=== PATIENT | male | born 1945 | race Hispanic/Latino ===

== ENCOUNTER 2022-06-12 19:33 | Emergency (ER) | payer MEDICARE, SELFPAY ==
[2022-06-12] VITALS (7 sets, daily range): BP systolic 122–140; BP diastolic 60–63; PULSE 77–93; RESP 16; TEMP 36.6; O2SAT 95–100; BMI 18.1
--- NOTE | 2022-06-12 20:06 | DI.RAD.S_ITS ---
PROCEDURE: XR ABDOMEN 1V INDICATIONS: abd pain / no bm since 06/09 TECHNIQUE: One view of the abdomen acquired. COMPARISON: Outside Film, CT, CT ABDOMEN PELVIS WITH CONTRAST, 05/22/2022, 10:48. FINDINGS: Surgical changes and devices: There is a gastrostomy tube projecting over the left mid abdomen. Bowel: There is a moderate amount of stool throughout the colon consistent with constipation. No dilated bowel loops to suggest obstruction. Soft tissues: No suspicious abdominal calcifications. There is a small right pleural effusion. Bones: There are moderate degenerative changes within the right hip. No suspicious bony lesions. IMPRESSION: 1. Moderate colonic stool distention compatible with constipation. No evidence of bowel obstruction. 2. Small right pleural effusion. Dictated by: Ayden Jimenez M.D. on 06/12/2022 at 20:38 Approved by: Ayden Jimenez M.D. on 06/12/2022 at 20:41
--- NOTE | 2022-06-12 22:34 | ED.GENADULT ---
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 He is being followed at the [facility] for continued Oncology evaluation and treatment of the mass. Gastric feeding tube was placed at the [facility] on the . Patient has not had a bowel movement since then. Had increasing pain in his daughters added additional water with still no bowel movement. He is not describing fevers or chills. Related Data Home Medications Medication Instructions Recorded Confirmed amoxicillin 500 mg tablet 500 mg PO TID 06/01/22 06/01/22 chlorhexidine gluconate 0.12 % 15 ml buccal DAILY 06/01/22 06/01/22 mouthwash ipratropium 0.5 mg-albuterol 3 mg 3 ml inhalation Q6H 06/01/22 06/01/22 (2.5 mg base)/3 mL nebulization soln nebulizer and compressor #1 ea 06/01/22 06/01/22 (InnoSpire Essence device) Previous Rx's Medication Instructions Recorded Magic Mouth wash 10 ml PO Q4-6H PRN sever throat 06/03/22 pain #120 mL polyethylene glycol 3350 17 17 g PO DAILY #238 grams 06/12/22 gram/dose oral powder (Miralax) Allergies Allergy/AdvReac Type Severity Reaction Status Date / Time No Known Drug Allergies Allergy Unverified 06/01/22 09:31 Review of Systems Review of Systems Narrative: Pertinent positive and negative findings as per HPI Patient History Medical History Aspiration into airway Dysphagia History of traumatic injury of head Tongue neoplasm Weight loss Social History details: (Maria De Jesus), daughter Chayito, 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 Abdomen is soft there is some minor tenderness in the right lower quadrant without rebound or guarding Skin: No obvious rashes, warm and dry Neurologic: Grossly intact no obvious asymmetries or abnormalities Psych: appropriate insight and affect, cooperative Course Orders Ordered: ED Orders 06/12/22 20:06 XR abdomen 1V Stat Discontinued Medications Lactulose (Lactulose 20 Gm/30 Ml Solution) 40 gm PO NOW ONE Stop: 06/12/22 21:17 Vital Signs Vital signs: Vital Signs - 8 hr 06/12/22 19:45 Temperature 97.8 F Pulse Rate 93 H Respiratory Rate 16 Blood Pressure 132/63 Pulse Oximetry 100 Oxygen Delivery Method Room Air Medical Decision Making [facility] Narrative Medical decision making narrative: CC: Abdominal pain, this is an acute problem uncertain prognosis Complicating co-morbidities: Recent cancer diagnosis and recent G-tube placement, significant weight loss Data collected from: patient, daughter Social determinants of health that may influence the patients condition: Recent cancer diagnosis, travel to [place] for care Medical records reviewed: Notes from primary care provider on June 01 reviewed Differential considered: Constipation, bowel perforation, abdominal/intra-abdominal infection Exam documented above, pertinent findings include: Mild right abdominal pain without evidence of acute surgical abdomen Lab Test studies were not indicated with today's visit Imaging studies independently reviewed: Abdominal x-ray shows a moderate amount of stool throughout the colon with a large focus in the cecum without evidence of obstruction or perforation. Discussion: Findings were discussed with patient and his daughter. Recommended 40 mg of lactulose through his tube to start the process of getting stool moving. From there I have recommended daily MiraLax with at least 8-12 oz of water to deal with his constipation. Reportedly constipation was an issue even before feeding tube was placed and oral intake limited. At this point again, there is no evidence of acute surgical abdomen or infection he is safe for discharge home Discharge Plan Departure Patient Disposition: Home Clinical Impression: Abdominal pain Qualifiers: Abdominal location: generalized Qualified Code(s): R10.84 - Generalized abdominal pain Constipation Qualifiers: Constipation type: unspecified constipation type Qualified Code(s): K59.00 - Constipation, unspecified Instructions: DI for Constipation Activity Restrictions/Additional Instructions: Thank you for coming in today I am glad that there is not evidence of bowel perforation or any need for acute surgical intervention tonight. The x-ray does suggest significant constipation as a source of your pain. You have been given 40 cc of lactulose to help with constipation this evening. I would recommend continued treatment and prevention with daily dose of 17 g (1 capful) of MiraLax along with 8-12 oz of water daily. [email or web address] If you find that you are getting worse or develop any new symptoms, please feel free to return to the emergency department for further evaluation. Prescriptions: New polyethylene glycol 3350 [Miralax] 17 gram/dose powder 17 g PO DAILY Qty: 238 0RF No Action Magic Mouth wash 10 ml PO Q4-6H MDD 60 ml PRN (Reason: sever throat pain) Qty: 120 2RF Rx Instructions: diphenhyramine elixor 12.5 mg/5ml, 1 part maalox and 1 part 2% viscous lidocane. swish, gargle, spit or swallow 10 ml every 4-6 hours as needed. (DME) nebulizer and compressor [InnoSpire Essence] Device See Rx Instructions .ROUTE .MEDSUPPLY Qty: 1 Patient Comments: USE FOUR TIMES DAILY Rx Instructions: As directed ipratropium-albuterol 0.5 mg-3 mg(2.5 mg base)/3 mL solution for nebulization 3 ml inhalation Q6H Patient Comments: INHALE CONTENTS OF 1 VIAL BY MOUTH AND INTO THE LUNGS EVERY 6 HOURS amoxicillin 500 mg tablet 500 mg PO TID chlorhexidine gluconate 0.12 % mouthwash 15 ml buccal DAILY Referrals: Shady Eric MD [Primary Care Provider] - Stand Alone Forms: Patient Portal/API
[2022-06-12] MEDS: LACTULOSE 20 GM/30 ML SOLUTION 40 GM PO (22:37)
== END 2022-06-12 23:04 | disposition home or self-care (01) ==
PROVIDERS: Emergency Provider Emergency Medicine; PCP Internal Medicine
DX: R10.84 Generalized abdominal pain (principal); K59.00 Constipation, unspecified
CPT/HCPCS: 74018; 99283

== ENCOUNTER 2022-06-13 15:35 | Emergency (ER) | payer MEDICARE, SELFPAY ==
[2022-06-13] VITALS (20 sets, daily range): BP systolic 139–190; BP diastolic 67–120; PULSE 70–96; RESP 20; TEMP 37; O2SAT 95–100; BMI 18.1
--- NOTE | 2022-06-13 15:55 | ED_ITS ---
HPI - General Adult <Suraj Pryor DO - Last Filed: 06/14/22 07:23> General Chief complaint: Abdominal Pain Stated complaint: Unable to urinate, Abd pain, has feeding tube Time Seen by Provider: 06/13/22 15:49 Source: patient and family Mode of arrival: Wheelchair Limitations: no limitations History of Present Illness HPI narrative: 76-year-old male. Has had a oral oncologic process. Had a G-tube placed recently. Takes nothing by mouth. Was seen here last night for constipation. Was given lactulose. Also given a prescription for MiraLax. Has not had a bowel movement with the lactulose. They have not done the MiraLax because they were told to hold on this until the lactulose had caused him to have a bowel movement. He is generalized abdominal tenderness. His family thinks he is dehydrated. He is not had any vomiting. The complaint about unable to urinate his because of a concern for dehydration not because of urinary retention. Related Data Home Medications Medication Instructions Recorded Confirmed amoxicillin 500 mg tablet 500 mg PO TID 06/01/22 06/01/22 chlorhexidine gluconate 0.12 % 15 ml buccal DAILY 06/01/22 06/01/22 mouthwash ipratropium 0.5 mg-albuterol 3 mg 3 ml inhalation Q6H 06/01/22 06/01/22 (2.5 mg base)/3 mL nebulization soln nebulizer and compressor #1 ea 06/01/22 06/01/22 (InnoSpire Essence device) Previous Rx's Medication Instructions Recorded Magic Mouth wash 10 ml PO Q4-6H PRN sever throat 06/03/22 pain #120 mL polyethylene glycol 3350 17 17 g PO DAILY #238 grams 06/12/22 gram/dose oral powder (Miralax) lactulose 10 gram oral packet 20 g PO BID PRN constipation #15 ea 06/13/22 Allergies Allergy/AdvReac Type Severity Reaction Status Date / Time No Known Drug Allergies Allergy Verified 06/13/22 16:01 Review of Systems <Suraj Pryor DO - Last Filed: 06/14/22 07:23> Constitutional Constitutional: Reports system reviewed and no additional complaints, except as documented Cardiovascular Cardiovascular: Reports system reviewed and no additional complaints, except as documented Respiratory Respiratory: Reports system reviewed and no additional complaints, except as documented Gastrointestinal Gastrointestinal: Reports system reviewed and no additional complaints, except as documented Genitourinary Genitourinary: Reports system reviewed and no additional complaints, except as documented Integumentary/Breasts Skin/Breast: Reports system reviewed and no additional complaints, except as documented Neurologic Neurologic: Reports system reviewed and no additional complaints, except as documented Hematologic/Lymphatic On Anticoagulants: No Patient History <Suraj Pryor DO - Last Filed: 06/14/22 07:23> Medical History Aspiration into airway Dysphagia History of traumatic injury of head Tongue neoplasm Weight loss Social History details: (Maria De Jesus), daughter Chayito, 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 Smoking Status: Former smoker Smoking Status: Former smoker Substance Use Type: does not use Exam <DO Randy Galvez Last Filed: 06/14/22 07:23> Initial Vital Signs Initial Vital Signs: Vital Signs Temperature 98.6 F 06/13/22 15:40 Pulse Rate 93 H 06/13/22 15:40 Respiratory Rate 20 06/13/22 15:40 Blood Pressure 141/67 H 06/13/22 15:40 Pulse Oximetry 99 06/13/22 15:40 Oxygen Delivery Method Room Air 06/13/22 15:40 Const General: comfortable HENMT Head: normal to inspection GI Inspection: non-distended Palpation: firm and tender Neuro General: patient alert and patient awake Extrem General: normal to inspection and capillary refill normal <Rae Apple MD - Last Filed: 06/13/22 21:31> Initial Vital Signs Initial Vital Signs: Vital Signs Temperature 98.6 F 06/13/22 15:40 Pulse Rate 93 H 06/13/22 15:40 Respiratory Rate 20 06/13/22 15:40 Blood Pressure 141/67 H 06/13/22 15:40 Pulse Oximetry 99 06/13/22 15:40 Oxygen Delivery Method Room Air 06/13/22 15:40 Course <Suraj Pryor DO - Last Filed: 06/14/22 07:23> Orders Ordered: Discontinued Medications Sodium Chloride (Normal Saline 0.9%) 1,000 mls @ 1,000 mls/hr IV BOLUS ONE Stop: 06/13/22 16:54 Last Infusion: 06/13/22 17:32 Dose: 0 mls/hr Documented By: Infusion: 06/13/22 16:51 Dose: 1,000 mls/hr Documented By: Infusion: 06/13/22 16:42 Dose: 0 mls/hr Documented By: Admin: 06/13/22 16:19 Dose: 1,000 mls/hr Documented By: JAKE Ketorolac Tromethamine (Ketorolac 30 Mg/Ml Vial) 30 mg IV NOW ONE Stop: 06/13/22 15:57 Last Admin: 06/13/22 16:19 Dose: 30 mg Documented By: BS Lactulose (Lactulose 20 Gm/30 Ml Solution) 20 gm TUBE NOW ONE Stop: 06/13/22 20:20 Last Admin: 06/13/22 20:28 Dose: 20 gm Documented By: SB Lidocaine HCl (Lidocaine 2% (Glydo) 6 Ml Gel) 6 ml TOP NOW ONE Stop: 06/13/22 17:38 Last Admin: 06/13/22 18:00 Dose: 6 ml Documented By: SPF Sodium Biphosphate/Sodium Phosphate (Fleets Enema) 1 each ND NOW ONE Stop: 06/13/22 20:20 Last Admin: 06/13/22 20:24 Dose: 1 each Documented By: THIEN Vital Signs Vital signs: Vital Signs - 8 hr 06/13/22 15:40 06/13/22 15:53 06/13/22 16:00 Temperature 98.6 F Pulse Rate 93 H 91 H Respiratory Rate 20 Blood Pressure 141/67 H 156/70 H Pulse Oximetry 99 99 Oxygen Delivery Method Room Air 06/13/22 16:00 06/13/22 16:32 06/13/22 16:40 Temperature Pulse Rate 96 H 80 81 Respiratory Rate Blood Pressure Pulse Oximetry 97 100 100 Oxygen Delivery Method Room Air 06/13/22 16:40 06/13/22 16:53 06/13/22 16:53 Temperature Pulse Rate 89 Respiratory Rate Blood Pressure 181/84 H 171/77 H Pulse Oximetry 98 Oxygen Delivery Method Room Air 06/13/22 17:00 06/13/22 17:00 06/13/22 17:20 Temperature Pulse Rate 84 Respiratory Rate Blood Pressure 176/79 H 175/120 H Pulse Oximetry 99 Oxygen Delivery Method 06/13/22 17:20 06/13/22 17:30 06/13/22 17:30 Temperature Pulse Rate 91 H 89 Respiratory Rate Blood Pressure 190/86 H Pulse Oximetry 99 100 Oxygen Delivery Method Room Air 06/13/22 18:13 06/13/22 18:13 06/13/22 18:28 Temperature Pulse Rate 80 83 Respiratory Rate Blood Pressure 175/82 H Pulse Oximetry 95 100 Oxygen Delivery Method Room Air 06/13/22 18:45 06/13/22 18:53 06/13/22 19:00 Temperature Pulse Rate 73 77 Respiratory Rate Blood Pressure 163/92 H Pulse Oximetry 99 99 Oxygen Delivery Method 06/13/22 19:30 Temperature Pulse Rate 79 Respiratory Rate Blood Pressure Pulse Oximetry 100 Oxygen Delivery Method Room Air <Rae Apple MD - Last Filed: 06/13/22 21:31> Orders Ordered: Discontinued Medications Sodium Chloride (Normal Saline 0.9%) 1,000 mls @ 1,000 mls/hr IV BOLUS ONE Stop: 06/13/22 16:54 Last Infusion: 06/13/22 17:32 Dose: 0 mls/hr Documented By: Infusion: 06/13/22 16:51 Dose: 1,000 mls/hr Documented By: Infusion: 06/13/22 16:42 Dose: 0 mls/hr Documented By: Admin: 06/13/22 16:19 Dose: 1,000 mls/hr Documented By: JAKE Ketorolac Tromethamine (Ketorolac 30 Mg/Ml Vial) 30 mg IV NOW ONE Stop: 06/13/22 15:57 Last Admin: 06/13/22 16:19 Dose: 30 mg Documented By: JAKE Lactulose (Lactulose 20 Gm/30 Ml Solution) 20 gm TUBE NOW ONE Stop: 06/13/22 20:20 Last Admin: 06/13/22 20:28 Dose: 20 gm Documented By: SB Lidocaine HCl (Lidocaine 2% (Glydo) 6 Ml Gel) 6 ml TOP NOW ONE Stop: 06/13/22 17:38 Last Admin: 06/13/22 18:00 Dose: 6 ml Documented By: SPF Sodium Biphosphate/Sodium Phosphate (Fleets Enema) 1 each ND NOW ONE Stop: 06/13/22 20:20 Last Admin: 06/13/22 20:24 Dose: 1 each Documented By: SB Vital Signs Vital signs: Vital Signs - 8 hr 06/13/22 15:40 06/13/22 15:53 06/13/22 16:00 Temperature 98.6 F Pulse Rate 93 H 91 H Respiratory Rate 20 Blood Pressure 141/67 H 156/70 H Pulse Oximetry 99 99 Oxygen Delivery Method Room Air 06/13/22 16:00 06/13/22 16:32 06/13/22 16:40 Temperature Pulse Rate 96 H 80 81 Respiratory Rate Blood Pressure Pulse Oximetry 97 100 100 Oxygen Delivery Method Room Air 06/13/22 16:40 06/13/22 16:53 06/13/22 16:53 Temperature Pulse Rate 89 Respiratory Rate Blood Pressure 181/84 H 171/77 H Pulse Oximetry 98 Oxygen Delivery Method Room Air 06/13/22 17:00 06/13/22 17:00 06/13/22 17:20 Temperature Pulse Rate 84 Respiratory Rate Blood Pressure 176/79 H 175/120 H Pulse Oximetry 99 Oxygen Delivery Method 06/13/22 17:20 06/13/22 17:30 06/13/22 17:30 Temperature Pulse Rate 91 H 89 Respiratory Rate Blood Pressure 190/86 H Pulse Oximetry 99 100 Oxygen Delivery Method Room Air 06/13/22 18:13 06/13/22 18:13 06/13/22 18:28 Temperature Pulse Rate 80 83 Respiratory Rate Blood Pressure 175/82 H Pulse Oximetry 95 100 Oxygen Delivery Method Room Air 06/13/22 18:45 06/13/22 18:53 06/13/22 19:00 Temperature Pulse Rate 73 77 Respiratory Rate Blood Pressure 163/92 H Pulse Oximetry 99 99 Oxygen Delivery Method 06/13/22 19:30 Temperature Pulse Rate 79 Respiratory Rate Blood Pressure Pulse Oximetry 100 Oxygen Delivery Method Room Air Medical Decision Making <Suraj Pryor DO - Last Filed: 06/14/22 07:23> Medical Records Medical records reviewed: Yes I reviewed the patient's medical records. Lab Data Lab results reviewed: Yes I reviewed the patient's lab results. 06/13/22 16:05 06/13/22 16:05 Labs: Lab Results 06/13/22 06/13/22 Range/Units 16:05 16:05 WBC 8.0 (4.5-11.0) X10^3/uL RBC 3.92 L (4.5-5.9) X10^6/uL Hgb 12.0 L (13.5-17.5) g/dL Hct 35.3 L (41-53) % MCV 90.1 (80-100) fL MCH 30.6 (26-34) PG MCHC 33.9 (30-36) % RDW 13.7 (11.6-14.8) % Plt Count 309 (150-400) X10^3/uL Neut % (Auto) 77.4 H (50-75) % Lymph % (Auto) 11.9 L (25-40) % [place] % (Auto) 7.5 (3-14) % Eos % (Auto) 2.7 (2-4) % Baso % (Auto) 0.5 (0-2) % Neut # (Auto) 6200 (9188-3905) /uL Lymph # (Auto) 1000 L (8842-4044) /uL [place] # (Auto) 600 (0-900) /uL Eos # (Auto) 200 (0-450) /uL Baso # (Auto) 0 (0-100) /uL Sodium 136 L (137-145) mmol/L Potassium 4.1 (3.4-5.1) mmol/L Chloride 98 (98-107) mmol/L Carbon Dioxide 30 (22-32) mmol/L BUN 17 (9-20) mg/dL Creatinine 0.52 L (0.66-1.25) mg/dL Estimated GFR > 60 (>60) mL/min BUN/Creatinine Ratio 32.7 H (6-22) Glucose 88 (80-110) mg/dL Calcium 9.3 (8.4-10.2) mg/dL Urine Dip Bedside Urine Glucose Negative Bedside Urine Bilirubin - Negative Bedside Urine Ketone +/- 5 Urine Specific [place] 1.010 Bedside Urine Occult Blood - Negative Bedside Urine pH 7.0 Bedside Urine Protein - Negative Bedside Urine Urobilinogen +/- 1mg Bedside Urine Nitrite - Negative Bedside Urine Leukocytes - Negative Esterase Point of care testing: Urine Dip Bedside Urine Glucose Negative Bedside Urine Bilirubin - Negative Bedside Urine Ketone +/- 5 Urine Specific [place] 1.010 Bedside Urine Occult Blood - Negative Bedside Urine pH 7.0 Bedside Urine Protein - Negative Bedside Urine Urobilinogen +/- 1mg Bedside Urine Nitrite - Negative Bedside Urine Leukocytes - Negative Esterase Imaging Data CT scan - abdomen/pelvis: Radiologist's Impression: PROCEDURE:? CT ABDOMEN PELVIS W CON ? INDICATIONS:? has G tube, constipation vs obstruction ? TECHNIQUE:? After the administration of oral and IV contrast, axial sections were acquired from the lung bases to the pubic symphysis.? Coronal and sagittal reformats were performed.? For radiation dose reduction, the following was used:? automated exposure control, adjustment of mA and/or kV according to patient size. ? COMPARISON:? Outside Film, CT, CT CHEST WITH CONTRAST, 05/22/2022, 10:48.? Outside Film, CT, CT ABDOMEN PELVIS WITH CONTRAST, 05/22/2022, 10:48. ? FINDINGS:? Image quality:? Excellent.? ? Lung bases:? Pleural thickening in right hemithorax.? There is a loculated right pleural effusion.? Right basilar consolidation or atelectasis.? ? Heart:? Normal size.? Severe coronary artery calcification. ? ? ABDOMEN: Liver:? Unremarkable.? ? Gallbladder:? Unremarkable.? ? Biliary ducts:? Unremarkable.? ? Pancreas:? Unremarkable.? ? Spleen:? Unremarkable.? ? Adrenal Glands:? Unremarkable.? ? Kidneys and Ureters:? Unremarkable.? ? ? Stomach and Bowel:? There is a percutaneous gastrostomy.? Stomach, small bowel loops, and colon are unremarkable.? A large amount of stool in colon. Peritoneum:? No abnormal intraperitoneal fluid.? No free air.? ? Ventral Wall: ? No hernia.? Abdominal Nodes:? No retroperitoneal or mesenteric adenopathy by size criteria.? Vessels:? Aorta and inferior vena cava are normal in size.? Moderate to severe atherosclerotic calcifications. ? PELVIS: Pelvic Organs:? Unremarkable.? ? Bladder:? Unremarkable.? ? Pelvic Nodes: No enlarged lymph nodes.? Miscellaneous:? Small fat containing left hernia is seen.? There is a penile calcification.? ? ? Bones:? Degenerative changes are noted in thoracic and lumbar spine.? IMPRESSION:? ? 1.? No acute abnormalities in abdomen or pelvis.? 2.? A large amount of stool in colon consistent with constipation.? 3.? Percutaneous gastrostomy.? 4.? Right pleural thickening.? There is a loculated right basilar pleural effusion.? Differential diagnoses include empyema and malignant effusion. 5. Right basilar consolidation or atelectasis.?? MDM Narrative Medical decision making narrative: Patient did quite a bit of generalized abdominal discomfort. Has not been vomiting. Is afebrile. Had a firm abdomen. CT scan does show quite a bit of stool in his colon which is consistent with constipation and how he presents. Patient also did have a postvoid residual of greater than 600 cc in hurts urine. I had a long discussion with him and his family at bedside regarding this. We did discuss how this potentially could be aiding to his issues with constipati on. We discussed placing a Macario catheter. After this discussion they were in agreement with placing the catheter and I suspect that this is going to help his discomfort quite a bit. We also had a discussion about leaving the catheter in versus removing it and the risks and benefits of this. They stated that they were going to think about whether not they wanted to leave the catheter in place. There is no signs of any bowel obstruction on the CT scan. I suspect that relieving his urinary retention and continued laxatives will benefit the patient. Care turned over to Dr. Apple to continue to follow until disposition. <Rae Apple MD - Last Filed: 06/13/22 21:31> Lab Data Labs: Lab Results 06/13/22 06/13/22 Range/Units 16:05 16:05 WBC 8.0 (4.5-11.0) X10^3/uL RBC 3.92 L (4.5-5.9) X10^6/uL Hgb 12.0 L (13.5-17.5) g/dL Hct 35.3 L (41-53) % MCV 90.1 (80-100) fL MCH 30.6 (26-34) PG MCHC 33.9 (30-36) % RDW 13.7 (11.6-14.8) % Plt Count 309 (150-400) X10^3/uL Neut % (Auto) 77.4 H (50-75) % Lymph % (Auto) 11.9 L (25-40) % [place] % (Auto) 7.5 (3-14) % Eos % (Auto) 2.7 (2-4) % Baso % (Auto) 0.5 (0-2) % Neut # (Auto) 6200 (8455-6692) /uL Lymph # (Auto) 1000 L (3066-9455) /uL [place] # (Auto) 600 (0-900) /uL Eos # (Auto) 200 (0-450) /uL Baso # (Auto) 0 (0-100) /uL Sodium 136 L (137-145) mmol/L Potassium 4.1 (3.4-5.1) mmol/L Chloride 98 (98-107) mmol/L Carbon Dioxide 30 (22-32) mmol/L BUN 17 (9-20) mg/dL Creatinine 0.52 L (0.66-1.25) mg/dL Estimated GFR > 60 (>60) mL/min BUN/Creatinine Ratio 32.7 H (6-22) Glucose 88 (80-110) mg/dL Calcium 9.3 (8.4-10.2) mg/dL Urine Dip Bedside Urine Glucose Negative Bedside Urine Bilirubin - Negative Bedside Urine Ketone +/- 5 Urine Specific [place] 1.010 Bedside Urine Occult Blood - Negative Bedside Urine pH 7.0 Bedside Urine Protein - Negative Bedside Urine Urobilinogen +/- 1mg Bedside Urine Nitrite - Negative Bedside Urine Leukocytes - Negative Esterase Point of care testing: Urine Dip Bedside Urine Glucose Negative Bedside Urine Bilirubin - Negative Bedside Urine Ketone +/- 5 Urine Specific [place] 1.010 Bedside Urine Occult Blood - Negative Bedside Urine pH 7.0 Bedside Urine Protein - Negative Bedside Urine Urobilinogen +/- 1mg Bedside Urine Nitrite - Negative Bedside Urine Leukocytes - Negative Esterase MDM Narrative Medical decision making narrative: Patient did quite a bit of generalized abdominal discomfort. Has not been vomiting. Is afebrile. Had a firm abdomen. CT scan does show quite a bit of stool in his colon which is consistent with constipation and how he presents. Patient also did have a postvoid residual of greater than 600 cc in hurts urine. I had a long discussion with him and his family at bedside regarding this. We did discuss how this potentially could be aiding to his issues with constipation. We discussed placing a Macario catheter. After this discussion they were in agreement with placing the catheter and I suspect that this is going to help his discomfort quite a bit. We also had a discussion about leaving the catheter in versus removing it and the risks and benefits of this. They stated that they were going to think about whether not they wanted to leave the catheter in place. There is no signs of any bowel obstruction on the CT scan. I suspect that relieving his urinary retention and continued laxatives will benefit the patient. Care turned over to Dr. Apple to continue to follow until disposition. 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 She wants to do everything possible to help her father and is quite cautious and very specific in following physician direction Medical records reviewed: Differential considered: Bowel obstruction, abdominal mass, bowel perforation secondary to obstipation, stercoral colitis Exam documented above, pertinent findings include: Continued abdominal tenderness Lab Test results independently reviewed as above. CBC remains essentially unchanged Chemistries are reassuring Imaging studies independently reviewed: CT scan as above. Consistent with severe constipation, no bowel perforation and distended bladder. Of note is the right pleural thickening with a loculated right base pleural effusion. Make sure that the daughter is aware of this and follows up with the Oncology doctors Consultations: Treatments: Manual bowel disimpaction. He had a moderate amount of firm but not dramatically hard stool. Following manual bowel disimpaction he was given an enema. Today he is having this that he does need to have a bowel movement. He was not sensing this yesterday Macario catheter was placed and drained 700 cc of urine. Re-evaluations: Minimal response initially to the enema but at time of discharge clearly is having increasing bowel tones and it sounds like our interventions are more effective. Discussion: 76-year-old gentleman with significant weight loss recent G-tube placement still trying to stick to 250 cc volumes of feedings until his stomach accommodates. Starters doing for feedings throughout the day. She had not been giving additional liquids. We talked about adding a 5th feeding that includes a dose of MiraLax with 250 cc of water daily. He had not had significant results with the 40 mg of G-tube lactulose delivered yesterday. We will give him additional 20 mg at this time. I think with the manual stimulation with a disimpaction the enema may be much more effective and hopefully will begin some: Contractions that help with complete bowel evacuation. We also discussed Macario catheter and whether it should stay or go. He is never had difficulties with BPH or urinary retention previously. It is entirely conceivable that this episode of urinary retention is due to his severe constipation which we have already alleviated. With shared decision making the patient clearly does not want to be discharged home with Macario catheter. He understands that if he is unable to void he will need to come back and have it replaced and is okay with that option. Discharge Plan Departure Patient Disposition: Home Clinical Impression: Acute urinary retention, Abdominal pain, Constipation Instructions: DI for Abdominal Pain-Adult, DI for Constipation, DI for Urinary Retention in Men Activity Restrictions/Additional Instructions: Thank you for coming back today With blood work done today there were no dramatic abnormalities appreciated. The CT scan of your abdomen showed continued significant amounts of constipation but no bowel obstruction or perforation. There was not incidental finding with a small amount of fluid in the right base of his lung with thickness along the base of his lung. Not having comparison studies I do not know if this is new or old. It is worth making sure his oncology doctors are aware of this finding and to that end I have given you a printed report of the CT scan to share with his oncology doctors when you follow-up. In the emergency room today we did a manual disimpaction. Had quite a bit of stool but it was not particularly hard. After that we did an enema. I think that will help with some of the left-sided constipation however we still need to work on the right-sided constipation and then preventing further constipation. He was given another dose of 20 mg of lactulose through his feeding tube to help with the right sided constipation. We Also found that he had a very distended bladder. Almost 700 cc of urine came out after the Macario catheter was placed. Sometimes very distended bladder is can contribute to constipation and sometimes constipation can cause very distended bladder. Because he has not had issues with his prostate or with urinary retention before we will go ahead and take the Macario catheter out before he goes home. Please do understand that he is unable to pee he will need to return and have a catheter replaced. Regarding further treatment and recommendations for feeding water and prevention of constipation. Please continue with the 250 cc feedings 4 times a day as previously recommended I would also recommend an additional bolus of water once a day. When I would like you to do is to use the MiraLax (a dose is 1 full cap full of the powder. This does not need to be precise. A little more, a little less and all is good. I would suggest that you mix the cap full of the powder with an additional 250 cc of water and put that in his feeding tube once a day. The worst side effect of this is that he will have runny stool. If that happens, discontinue the MiraLax but I would recommend continuing an additional dose of just 250 cc of water in between feedings. Please make sure you review all of this with the transmission technician and physicians that will be follow-up regarding his gastric tube. Prescriptions: New lactulose 10 gram packet 20 g PO BID PRN (Reason: constipation) Qty: 15 0RF No Action Magic Mouth wash 10 ml PO Q4-6H MDD 60 ml PRN (Reason: sever throat pain) Qty: 120 2RF Rx Instructions: diphenhyramine elixor 12.5 mg/5ml, 1 part maalox and 1 part 2% viscous lidocane. swish, gargle, spit or swallow 10 ml every 4-6 hours as needed. (DME) nebulizer and compressor [InnoSpire Essence] Device See Rx Instructions .ROUTE .MEDSUPPLY Qty: 1 Patient Comments: USE FOUR TIMES DAILY Rx Instructions: As directed ipratropium-albuterol 0.5 mg-3 mg(2.5 mg base)/3 mL solution for nebulization 3 ml inhalation Q6H Patient Comments: INHALE CONTENTS OF 1 VIAL BY MOUTH AND INTO THE LUNGS EVERY 6 HOURS amoxicillin 500 mg tablet 500 mg PO TID chlorhexidine gluconate 0.12 % mouthwash 15 ml buccal DAILY polyethylene glycol 3350 [Miralax] 17 gram/dose powder 17 g PO DAILY Qty: 238 0RF Referrals: Shady Eric MD [Primary Care Provider] - Stand Alone Forms: Patient Portal/API
--- NOTE | 2022-06-13 15:56 | DI.CT.S_ITS ---
PROCEDURE: CT ABDOMEN PELVIS W CON INDICATIONS: has G tube, constipation vs obstruction TECHNIQUE: After the administration of oral and IV contrast, axial sections were acquired from the lung bases to the pubic symphysis. Coronal and sagittal reformats were performed. For radiation dose reduction, the following was used: automated exposure control, adjustment of mA and/or kV according to patient size. COMPARISON: Outside Film, CT, CT CHEST WITH CONTRAST, 05/22/2022, 10:48. Outside Film, CT, CT ABDOMEN PELVIS WITH CONTRAST, 05/22/2022, 10:48. FINDINGS: Image quality: Excellent. Lung bases: Pleural thickening in right hemithorax. There is a loculated right pleural effusion. Right basilar consolidation or atelectasis. Heart: Normal size. Severe coronary artery calcification. ABDOMEN: Liver: Unremarkable. Gallbladder: Unremarkable. Biliary ducts: Unremarkable. Pancreas: Unremarkable. Spleen: Unremarkable. Adrenal Glands: Unremarkable. Kidneys and Ureters: Unremarkable. Stomach and Bowel: There is a percutaneous gastrostomy. Stomach, small bowel loops, and colon are unremarkable. A large amount of stool in colon. Peritoneum: No abnormal intraperitoneal fluid. No free air. Ventral Wall: No hernia. Abdominal Nodes: No retroperitoneal or mesenteric adenopathy by size criteria. Vessels: Aorta and inferior vena cava are normal in size. Moderate to severe atherosclerotic calcifications. PELVIS: Pelvic Organs: Unremarkable. Bladder: Unremarkable. Pelvic Nodes: No enlarged lymph nodes. Miscellaneous: Small fat containing left hernia is seen. There is a penile calcification. Bones: Degenerative changes are noted in thoracic and lumbar spine. IMPRESSION: 1. No acute abnormalities in abdomen or pelvis. 2. A large amount of stool in colon consistent with constipation. 3. Percutaneous gastrostomy. 4. Right pleural thickening. There is a loculated right basilar pleural effusion. Differential diagnoses include empyema and malignant effusion. 5. Right basilar consolidation or atelectasis. Dictated by: Francia Gustafson M.D. on 06/13/2022 at 17:05 Approved by: Francia Gustafson M.D. on 06/13/2022 at 17:16
[2022-06-13 16:14] LABS: Add Manual Diff / Slide Review NO; Basophils Absolute Auto 0 /uL (0-100); Basophils Percent Auto 0.5 % (0-2); Eosinophils Absolute Auto 200 /uL (0-450); Eosinophils Percent Auto 2.7 % (2-4); Hematocrit 35.3 % (41-53); Lymphocytes Absolute Auto 1000 /uL (1100-4500); Lymphocytes Percent Auto 11.9 % (25-40); Mean Corpuscular HGB Conc 33.9 % (30-36); Mean Corpuscular Hemoglobin 30.6 PG (26-34); Mean Corpuscular Volume 90.1 fL (80-100); Monocytes Absolute Auto 600 /uL (0-900); Monocytes Percent Auto 7.5 % (3-14); Neutrophils Absolute Auto 6200 /uL (1500-7000); Neutrophils Percent Auto 77.4 % (50-75); Platelet Count 309 X10^3/uL (150-400); Red Blood Cell Count 3.92 X10^6/uL (4.5-5.9); Red Cell Distribution Width 13.7 % (11.6-14.8)
[2022-06-13] MEDS: KETOROLAC 30 MG/ML VIAL IV (16:19)
[2022-06-13] MEDS: SODIUM CHLORIDE 0.9% 1,000 ML 1000 ML IV (16:19)
[2022-06-13 16:33] LABS: BUN Creatinine Ratio 32.7 (6-22); Blood Urea Nitrogen 17 mg/dL (9-20); Calcium 9.3 mg/dL (8.4-10.2); Carbon Dioxide 30 mmol/L (22-32); Chloride 98 mmol/L (98-107); Estimated Glomerular Filt Rate > 60 mL/min (>60); Glucose 88 mg/dL (80-110); HEMOLYSIS < 15 (0-50); Potassium 4.1 mmol/L (3.4-5.1); Sodium 136 mmol/L (137-145)
[2022-06-13] MEDS: LIDOCAINE 2% (GLYDO) 6 ML GEL TOP (18:00)
[2022-06-13] MEDS: FLEETS ENEMA 1 EACH PR (20:24)
[2022-06-13] MEDS: LACTULOSE 20 GM/30 ML SOLUTION TUBE (20:28)
== END 2022-06-13 21:50 | disposition home or self-care (01) ==
PROVIDERS: Emergency Medicine; Emergency Provider Emergency Medicine; PCP Internal Medicine
DX: R33.8 Other retention of urine (principal); R10.9 Unspecified abdominal pain; K59.00 Constipation, unspecified; Z93.1 Gastrostomy status
CPT/HCPCS: 36415; 51798; 74177; 80048; 81003; 85025; 96361; 96374; 99284; 99285; J1885

== ENCOUNTER 2022-06-17 16:25 | Emergency (ER) | payer MEDICARE, SELFPAY ==
[2022-06-17 16:31] VITALS: BP 137/63; PULSE 78; RESP 16; TEMP 36.8; O2SAT 98; BMI 18.3
--- NOTE | 2022-06-17 18:25 | ED_ITS ---
HPI - Recheck/Abnormal Lab/Rx General Chief Complaint: Recheck/Abnormal Lab/Rx Stated Complaint: skin is overlapping on butterfly feeding tube Time Seen by Provider: 06/17/22 17:15 Source: patient and family Mode of arrival: Ambulatory Related Data Home Medications Medication Instructions Recorded Confirmed amoxicillin 500 mg tablet 500 mg PO TID 06/01/22 06/01/22 chlorhexidine gluconate 0.12 % 15 ml buccal DAILY 06/01/22 06/01/22 mouthwash ipratropium 0.5 mg-albuterol 3 mg 3 ml inhalation Q6H 06/01/22 06/01/22 (2.5 mg base)/3 mL nebulization soln nebulizer and compressor #1 ea 06/01/22 06/01/22 (InnoSpire Essence device) Previous Rx's Medication Instructions Recorded Magic Mouth wash 10 ml PO Q4-6H PRN sever throat 06/03/22 pain #120 mL polyethylene glycol 3350 17 17 g PO DAILY #238 grams 06/12/22 gram/dose oral powder (Miralax) lactulose 10 gram/15 mL (15 mL) 20 g (30 mL) PO BID PRN 06/15/22 oral solution constipation #600 mL Allergies Allergy/AdvReac Type Severity Reaction Status Date / Time No Known Drug Allergies Allergy Verified 06/17/22 16:31 Patient History Medical History Aspiration into airway Dysphagia History of traumatic injury of head Tongue neoplasm Weight loss Social History details: (Maria De Jesus), daughter Chayito, 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 Smoking Status: Former smoker Smoking Status: Former smoker Substance Use Type: does not use Exam Initial Vital Signs Initial Vital Signs: Vital Signs Temperature 98.2 F 06/17/22 16:31 Pulse Rate 78 06/17/22 16:31 Respiratory Rate 16 06/17/22 16:31 Blood Pressure 137/63 06/17/22 16:31 Pulse Oximetry 98 06/17/22 16:31 Oxygen Delivery Method Room Air 06/17/22 16:31 Course Vital Signs Vital signs: Vital Signs - 8 hr 06/17/22 16:31 Temperature 98.2 F Pulse Rate 78 Respiratory Rate 16 Blood Pressure 137/63 Pulse Oximetry 98 Oxygen Delivery Method Room Air Discharge Plan Departure Prescriptions: No Action Magic Mouth wash 10 ml PO Q4-6H MDD 60 ml PRN (Reason: sever throat pain) Qty: 120 2RF Rx Instructions: diphenhyramine elixor 12.5 mg/5ml, 1 part maalox and 1 part 2% viscous lidocane. swish, gargle, spit or swallow 10 ml every 4-6 hours as needed. lactulose 10 gram/15 mL (15 mL) solution 20 g PO BID PRN (Reason: constipation) Qty: 600 0RF (DME) nebulizer and compressor [InnoSpire Essence] Device See Rx Instructions .ROUTE .MEDSUPPLY Qty: 1 Patient Comments: USE FOUR TIMES DAILY Rx Instructions: As directed ipratropium-albuterol 0.5 mg-3 mg(2.5 mg base)/3 mL solution for nebulization 3 ml inhalation Q6H Patient Comments: INHALE CONTENTS OF 1 VIAL BY MOUTH AND INTO THE LUNGS EVERY 6 HOURS amoxicillin 500 mg tablet 500 mg PO TID chlorhexidine gluconate 0.12 % mouthwash 15 ml buccal DAILY polyethylene glycol 3350 [Miralax] 17 gram/dose powder 17 g PO DAILY Qty: 238 0RF Referrals: Shady Eric MD [Primary Care Provider] -
--- NOTE | 2022-06-17 18:30 | ED.RECABL ---
HPI - Recheck/Abnormal Lab/Rx <CHET Hart - Last Filed: 06/17/22 18:41> General Chief Complaint: Recheck/Abnormal Lab/Rx Stated Complaint: skin is overlapping on butterfly feeding tube Time Seen by Provider: 06/17/22 17:15 Source: patient and family Mode of arrival: Ambulatory History of Present Illness HPI narrative: This is a 76-year-old male who presents to the emergency room with his daughter with concern about a now G2 patient received last week, he has been eating well and received food through his G-tube and gaining weight and now has some skin that is overlapping the top of his G-tube. There is a butterfly adapter on the external of the tube, this is hubbed near the skin causing some pressure at the skin, family is concerned about possible pressure injury if this were to continue. Denies any problems with the G-tube dysfunction. Patient is getting weight as intended and due to start chemo next week. Patient is without recent fever, chills, vomiting. Related Data Home Medications Medication Instructions Recorded Confirmed amoxicillin 500 mg tablet 500 mg PO TID 06/01/22 06/01/22 chlorhexidine gluconate 0.12 % 15 ml buccal DAILY 06/01/22 06/01/22 mouthwash ipratropium 0.5 mg-albuterol 3 mg 3 ml inhalation Q6H 06/01/22 06/01/22 (2.5 mg base)/3 mL nebulization soln nebulizer and compressor #1 ea 06/01/22 06/01/22 (InnoSpire Essence device) Previous Rx's Medication Instructions Recorded Magic Mouth wash 10 ml PO Q4-6H PRN sever throat 06/03/22 pain #120 mL polyethylene glycol 3350 17 17 g PO DAILY #238 grams 06/12/22 gram/dose oral powder (Miralax) lactulose 10 gram/15 mL (15 mL) 20 g (30 mL) PO BID PRN 06/15/22 oral solution constipation #600 mL Allergies Allergy/AdvReac Type Severity Reaction Status Date / Time No Known Drug Allergies Allergy Verified 06/17/22 16:31 Review of Systems <CHET Hart - Last Filed: 06/17/22 18:41> Review of Systems ROS Unobtainable: All systems reviewed & are unremarkable except as noted in HPI and below Patient History <CHET Hart - Last Filed: 06/17/22 18:41> Medical History Aspiration into airway Dysphagia History of traumatic injury of head Tongue neoplasm Weight loss Social History details: (Maria De Jesus), daughter Chayito, 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 General: Pleasant, sitting upright, in no acute distress, well groomed, afebrile HEENT: symmetrical facial expressions, moist mucous membranes, neck is supple CV: regular rate and rhythm, warm extremities Respiratory: Mildly increased work of breathing, presume this is baseline for him, clear breath sounds throughout without tachypnea or hypoxia. GI: abdomen soft, nondistended, without CVA tenderness bilaterally. G-tube present to the left upper quadrant, no surrounding erythema, drainage tube is patent, skin is wrinkling superior to this due to increased tissue, butterfly on tube was moved 0.5 cm and no longer has pressure at the base of the butterfly. Tube remains present, without complication. MSK: moves all extremities, no weakness, normal tone, ambulatory without deficit Skin: brisk capillary refill, without rash or wound Neuro: clear speech and normal cognition, A&O x3, GCS 15, no focal motor or sensation deficits Initial Vital Signs Initial Vital Signs: Vital Signs Temperature 98.2 F 06/17/22 16:31 Pulse Rate 78 06/17/22 16:31 Respiratory Rate 16 06/17/22 16:31 Blood Pressure 137/63 06/17/22 16:31 Pulse Oximetry 98 06/17/22 16:31 Oxygen Delivery Method Room Air 06/17/22 16:31 <Parker Cuevas DO - Last Filed: 06/18/22 03:53> Initial Vital Signs Initial Vital Signs: Vital Signs Temperature 98.2 F 06/17/22 16:31 Pulse Rate 78 05/05/23 16:31 Respiratory Rate 16 06/17/22 16:31 Blood Pressure 137/63 06/17/22 16:31 Pulse Oximetry 98 06/17/22 16:31 Oxygen Delivery Method Room Air 06/17/22 16:31 Course <CHET Hart - Last Filed: 06/17/22 18:41> Vital Signs Vital signs: Vital Signs - 8 hr 06/17/22 16:31 Temperature 98.2 F Pulse Rate 78 Respiratory Rate 16 Blood Pressure 137/63 Pulse Oximetry 98 Oxygen Delivery Method Room Air <Parker Cuevas DO - Last Filed: 06/18/22 03:53> Vital Signs Vital signs: Vital Signs - 8 hr 06/17/22 16:31 Temperature 98.2 F Pulse Rate 78 Respiratory Rate 16 Blood Pressure 137/63 Pulse Oximetry 98 Oxygen Delivery Method Room Air MDM - Recheck/Abnormal Lab/Rx <CHET Hart - Last Filed: 06/17/22 18:41> MDM Narrative Medical decision making narrative: Chief Complaint: G-tube problem Independent historian: Patient and his daughter Multiple etiologies for patient's symptoms considered including, but not limited to: Pressure injury due to G2, non patent G tube, displaced G-tube, abdominal cellulitis I have independently reviewed the patient's vital signs and nursing notes as well as prior records if available. Course of care: the patient was myself and on exam, he has gained some weight since his tissue placement in has excess tissue wrinkling surrounding his G-tube. The butterfly was extended proximally 0.5 cm, normal wrinkling around the G-tube and there is no evidence of wound. G-tube functions well without any complication. He will follow-up with his primary care provider as needed and return to for chemo starting next week. Social considerations that may affect disposition: none Questions are addressed and there is agreement with the plan and for follow-up. I consulted with the ED attending physician Dr. Cuevas as needed for higher level of care considerations and they were available for discussion and recommendations regarding plan of care and diagnostic testing. Patient is appropriate for outpatient management. Discharge Plan Departure Patient Disposition: Home Clinical Impression: Problem with gastrostomy tube Activity Restrictions/Additional Instructions: *You have been diagnosed with a G-tube problem due to your skinn overlapping the G-tube which could have caused a pressure injury. We have adjusted this for you. Please keep an eye on it for signs of infection, worsening pressure, to stay hydrated, and follow-up with you dab as needed. I hope you feel better soon, thank you for coming in and I am sorry for the wait today. *What to do: *Please continue to take your regular medications as directed. [ ] New medication prescriptions sent to your pharmacy: [ ] [ ] New medication written as a paper prescription [ x] No new medications given *Please call and schedule follow up with your primary care provider in 2-3 days, at least for an update. Let them know you were seen in the Emergency Department for the above problem. We will electronically transmit a record of today's note if your PCP or specialist is in our system. *If you do not have a primary care provider please contact [phone] to establish care with one of the [facility] primary care providers. *Return to the Emergency Department for worsening symptoms, inability to keep liquids down, fever greater than 101F, chills, or other concerning symptom. Prescriptions: No Action Magic Mouth wash 10 ml PO Q4-6H MDD 60 ml PRN (Reason: sever throat pain) Qty: 120 2RF Rx Instructions: diphenhyramine elixor 12.5 mg/5ml, 1 part maalox and 1 part 2% viscous lidocane. swish, gargle, spit or swallow 10 ml every 4-6 hours as needed. lactulose 10 gram/15 mL (15 mL) solution 20 g PO BID PRN (Reason: constipation) Qty: 600 0RF (DME) nebulizer and compressor [InnoSpire Essence] Device See Rx Instructions .ROUTE .MEDSUPPLY Qty: 1 Patient Comments: USE FOUR TIMES DAILY Rx Instructions: As directed ipratropium-albuterol 0.5 mg-3 mg(2.5 mg base)/3 mL solution for nebulization 3 ml inhalation Q6H Patient Comments: INHALE CONTENTS OF 1 VIAL BY MOUTH AND INTO THE LUNGS EVERY 6 HOURS amoxicillin 500 mg tablet 500 mg PO TID chlorhexidine gluconate 0.12 % mouthwash 15 ml buccal DAILY polyethylene glycol 3350 [Miralax] 17 gram/dose powder 17 g PO DAILY Qty: 238 0RF Referrals: Kotal,Shady V, MD [Primary Care Provider] - Stand Alone Forms: Patient Portal/API <Parker Cuevas DO - Last Filed: 06/18/22 03:53> Cosign ED Attending Luis Carlos Attestation: I was immediately available in the department for consultation. Documentation has been reviewed. I agree with assessment and plan.
== END 2022-06-17 18:40 | disposition home or self-care (01) ==
PROVIDERS: Emergency Provider Nurse Practitioner Critical Care Medicine; PCP Internal Medicine
DX: K94.20 Gastrostomy complication, unspecified (principal)
CPT/HCPCS: 99281

== ENCOUNTER 2022-11-11 03:54 | Inpatient (IN) | payer MEDICARE, SELFPAY ==
[2022-11-11] VITALS (29 sets, daily range): BP systolic 105–163; BP diastolic 46–79; PULSE 76–141; RESP 18–47; TEMP 36.7–37.6; O2SAT 89–99; BMI 19.6; BMI 19.4
--- NOTE | 2022-11-11 04:11 | DI.RAD.S_ITS ---
PROCEDURE: XR CHEST 1V INDICATIONS: sepsis TECHNIQUE: One view of the chest was acquired. COMPARISON: [facility], CR, XR CHEST 1 VIEW, 08/25/2022, 13:35. [facility], CT, CT CHEST WITH CONTRAST, 08/30/2022, 15:04. FINDINGS: Surgical changes and devices: There is a Port-A-Cath on the left with the tip in the area of SVC. Lungs and pleura: Lungs are hyperexpanded consistent with emphysema. There is right lower lung zone airspace infiltrate consistent with pneumonia. Moderate right pleural effusion. No pneumothorax. Mediastinum: Mediastinal contours appear normal. Heart size is normal. Bones and chest wall: No suspicious bony lesions. Overlying soft tissues appear unremarkable. IMPRESSION: 1. Infiltrate in the right lower lung zone consistent with pneumonia. 2. Moderate right pleural effusion. No significant discrepancy with the operations supervisor 2nd shift radiology preliminary report. Dictated by: Francia Gustafson M.D. on 11/11/2022 at 8:49 Approved by: Francia Gustafson M.D. on 11/11/2022 at 8:50
--- NOTE | 2022-11-11 04:13 | ED.GENADULT ---
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 He is not dizzy nor weak or lightheaded. He denies fever or chills. He is had no runny nose or cough denies shortness of breath. He denies abdominal pain or constipation. He has no urinary complaints. He had recent visit with ENT and has definite improvement of mass and is even getting the occaional liquid down orally, he had been exclusively receiving food and hydration by his G tube. Related Data Home Medications Medication Instructions Recorded Confirmed chlorhexidine gluconate 0.12 % 15 ml buccal DAILY 06/01/22 11/11/22 mouthwash ipratropium 0.5 mg-albuterol 3 mg 3 ml inhalation Q6H 06/01/22 11/11/22 (2.5 mg base)/3 mL nebulization soln nebulizer and compressor #1 ea 06/01/22 11/11/22 (InnoSpire Essence device) hydromorphone 1 mg/mL oral liquid 0.5 mg feeding tube Q4H PRN severe 11/11/22 11/11/22 pain nystatin 100,000 unit/mL oral 5 ml PO 4XD 11/11/22 11/11/22 suspension triamcinolone acetonide 0.1 % 1 applic topical BID PRN Rash 11/11/22 11/11/22 topical ointment Previous Rx's Medication Instructions Recorded Magic Mouth wash 10 ml PO Q4-6H PRN sever throat 06/03/22 pain #120 mL polyethylene glycol 3350 17 17 g PO DAILY #238 grams 06/12/22 gram/dose oral powder (Miralax) lactulose 10 gram/15 mL (15 mL) 20 g (30 mL) PO BID PRN 06/15/22 oral solution constipation #600 mL Allergies Allergy/AdvReac Type Severity Reaction Status Date / Time No Known Drug Allergies Allergy Verified 06/17/22 16:31 Review of Systems <Parker Cuevas DO - Last Filed: 11/11/22 22:18> Review of Systems Narrative: GENERAL: see HPI HEENT: see HPI RESPIRATORY: Denies dyspnea, cough, wheezing, hemoptysis, sputum. CARDIOVASCULAR: see HPI GASTROINTESTINAL: Denies nausea, vomiting, abdominal pain, diarrhea, constipation, melena. : Denies dysuria, frequency, incontinence, hematuria, urinary retention. MUSCULOSKELETAL: denies weakness, joint pain, or bony pain SKIN: Denies rash, skin lesions, or other NEUROLOGIC: Denies weakness, headache, numbness, change in speech, confusion, seizures, incoordination. PSYCHIATRIC: No concerning psychosocial issues. 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 Thin, chronically ill, no obvious distress, admits that he is somewhat anxious HEAD: Atraumatic. Normocephalic. Temporal wasting EYES: Pupils equal round and reactive. Extraocular motions intact. No scleral icterus. No injection or drainage. ENT: Dry mucous membranes Nose without bleeding, purulent drainage. Mucosal irritation and erythema consistent with mucositis, airway patent, tonsillar hypertrophy or exudate. Airway patent. NECK: Trachea midline. Non tender CARDIOVASCULAR: Tachycardic but regular rhythm without murmurs, gallops, or rubs. RESPIRATORY: Clear to auscultation. Breath sounds equal bilaterally. No wheezes, rales, or rhonchi. GASTROINTESTINAL: Abdomen soft, non-tender, nondistended. EXTREMITIES: No edema or joint tenderness. BACK: Nontender without deformity or crepitance. No flank tenderness. NEURO: AOx3. SKIN: No rash or erythema of visible areas Initial Vital Signs Initial Vital Signs: Vital Signs Pulse Rate 76 11/11/22 03:59 Pulse Oximetry 92 11/11/22 03:59 <Faby Ramirez MD - Last Filed: 11/11/22 19:19> Initial Vital Signs Initial Vital Signs: Vital Signs Pulse Rate 76 11/11/22 03:59 Pulse Oximetry 92 11/11/22 03:59 Course <Parker Cuevas DO - Last Filed: 11/11/22 22:18> Orders Ordered: Acetaminophen (Acetaminophen Susp 650 Mg/20.3 Ml Udc) 650 mg TUBE Q6HR PRN PRN Reason: Fever/Mild Pain (1-3) Albuterol/Ipratropium (Albuterol/Ipratropium 3 Ml Ampul) 3 ml INH Q6H PRN PRN Reason: SOB/wheezing Chlorhexidine Gluconate (Chlorhexidine Gluconate 15 Ml Cup) 15 ml PO DAILY [facility] Last Admin: 11/11/22 14:36 Dose: 15 ml Documented By: ENEDELIA Lidocaine HCl 30 ml/ Al Hydrox /Mg Hydrox/Simethicone 30 ml/Diphenhydramine HCl 37.5 mg 0 ml MM Q4H PRN PRN Reason: Sore Throat Enoxaparin Sodium (Enoxaparin 40 Mg/0.4 Ml Syringe) 40 mg SUBCUT DAILY [facility] Last Admin: 11/11/22 14:53 Dose: Not Given Documented By: ENEDELIA Hydromorphone HCl (Hydromorphone 0.5 Mg Inj) 0.5 mg TUBE Q4H PRN PRN Reason: severe pain Last Admin: 11/11/22 22:00 Dose: 0.5 mg Documented By: Admin: 11/11/22 11:59 Dose: 0.5 mg Documented By: PROSPER Sodium Chloride (Normal Saline 0.9%) 1,000 mls @ 100 mls/hr IV CONT [facility] Stop: 11/11/22 23:44 Last Admin: 11/11/22 13:26 Dose: 100 mls/hr Documented By: NELLI Ceftriaxone Sodium 1,000 mg/ (Sodium Chloride) 100 mls @ 200 mls/hr IV Q24H [facility] Stop: 11/15/22 09:01 Azithromycin 500 mg/ Dextrose 250 mls @ 250 mls/hr IV Q24H [facility] Stop: 11/13/22 12:59 Last Admin: 11/11/22 13:26 Dose: 250 mls/hr Documented By: NELLI Metronidazole (Flagyl) 500 mg in 100 mls @ 100 mls/hr IV Q8H [facility] Last Infusion: 11/11/22 21:13 Dose: 0 mls/hr Documented By: Admin: 11/11/22 19:54 Dose: 100 mls/hr Documented By: Lactulose (Lactulose 20 Gm/30 Ml Solution) 20 gm PO BID PRN PRN Reason: constipation Last Admin: 11/11/22 14:37 Dose: 20 gm Documented By: ENEDELIA Lorazepam (Lorazepam 2 Mg/Ml Inj) 0.5 mg IV Q6HR PRN PRN Reason: Anxiety Melatonin (Melatonin 3 Mg Tablet) 6 mg TUBE BEDTIME PRN PRN Reason: Insomnia Naloxone HCl (Naloxone 0.4 Mg/Ml Vial) 0.2 mg IV Q2MIN PRN PRN Reason: Opiate Reversal Nf - Triamcinolone Acetonide 0.1 % Ointment 1 applictn TOP BID PRN PRN Reason: Rash Nystatin (Nystatin Susp 500,000 Unit/5 Ml Udc) 500,000 unit PO QID [facility] Last Admin: 11/11/22 21:07 Dose: 500,000 unit Documented By: Admin: 11/11/22 17:00 Dose: Not Given Documented By: Admin: 11/11/22 14:33 Dose: 500,000 unit Documented By: ENEDELIA Polyethylene Glycol (Polyethylene Glycol 3350 17 Gm Powd.Pack) 17 gm TUBE DAILY PRN PRN Reason: Constipation Polyethylene Glycol (Polyethylene Glycol 3350 17 Gm Powd.Pack) 17 gm TUBE DAILY [facility] Last Admin: 11/11/22 14:36 Dose: Not Given Documented By: ENEDELIA Sennosides (Sennosides 8.6 Mg Tablet) 8.6 mg TUBE BID PRN PRN Reason: Constipation Discontinued Medications Bacitracin (Bacitracin Oint 0.9 Gm Pckt) 1 applic TOP NOW ONE Stop: 11/11/22 08:02 Last Admin: 11/11/22 08:05 Dose: 1 applic Documented By: PROSPER Hydromorphone HCl (Hydromorphone 0.5 Mg Inj) 0.5 mg IV NOW ONE Stop: 11/11/22 08:01 Last Admin: 11/11/22 08:05 Dose: 0.5 mg Documented By: PROSPER Hydromorphone HCl (Hydromorphone 0.5 Mg Inj) 0.5 mg IV NOW ONE Stop: 11/11/22 11:53 Last Admin: 11/11/22 13:26 Dose: Not Given Documented By: NELLI Sodium Chloride (Normal Saline 0.9%) 1,000 mls @ 1,000 mls/hr IV BOLUS ONE Stop: 11/11/22 05:09 Last Infusion: 11/11/22 05:45 Dose: 0 mls/hr Documented By: Admin: 11/11/22 04:25 Dose: 1,000 mls/hr Documented By: MADIHA Sodium Chloride (Normal Saline 0.9%) 1,000 mls @ 1,000 mls/hr IV BOLUS ONE Stop: 11/11/22 05:24 Last Infusion: 11/11/22 07:53 Dose: 0 mls/hr Documented By: Admin: 11/11/22 06:04 Dose: 1,000 mls/hr Documented By: MADIHA Levofloxacin (Levaquin) 750 mg in 150 mls @ 100 mls/hr IV NOW ONE Stop: 11/11/22 05:59 Last Infusion: 11/11/22 06:18 Dose: 0 mls/hr Documented By: Admin: 11/11/22 04:48 Dose: 100 mls/hr Documented By: TABATHA Lorazepam (Lorazepam 2 Mg/Ml Inj) 1 mg IV NOW ONE Stop: 11/11/22 04:19 Last Admin: 11/11/22 04:26 Dose: 1 mg Documented By: MADIHA Vital Signs Vital signs: Vital Signs - 8 hr 11/11/22 05:30 11/11/22 05:30 11/11/22 06:00 Pulse Rate 129 H Respiratory Rate 28 H Blood Pressure 131/61 118/56 L Pulse Oximetry 96 11/11/22 06:00 11/11/22 06:30 11/11/22 06:30 Pulse Rate 127 H 117 H Respiratory Rate 23 24 Blood Pressure 124/79 Pulse Oximetry 97 95 09/29/23 07:00 11/11/22 07:04 11/11/22 07:04 Pulse Rate 127 H 128 H Respiratory Rate 46 H 47 H Blood Pressure 130/61 Pulse Oximetry 98 11/11/22 07:15 11/11/22 07:30 11/11/22 07:30 Pulse Rate 127 H 124 H Respiratory Rate 44 H 29 H Blood Pressure 121/56 L Pulse Oximetry 96 96 11/11/22 07:45 11/11/22 08:00 11/11/22 08:00 Pulse Rate 121 H 121 H Respiratory Rate 27 H Blood Pressure 124/56 L Pulse Oximetry 96 97 11/11/22 08:15 11/11/22 08:30 11/11/22 08:30 Pulse Rate 118 H 116 H Respiratory Rate 23 Blood Pressure 111/56 L Pulse Oximetry 96 96 11/11/22 08:45 11/11/22 09:00 11/11/22 09:00 Pulse Rate 114 H 114 H Respiratory Rate 25 H 29 H Blood Pressure 112/60 Pulse Oximetry 98 99 <Faby Ramirez MD - Last Filed: 11/11/22 19:19> Orders Ordered: Acetaminophen (Acetaminophen Susp 650 Mg/20.3 Ml Udc) 650 mg TUBE Q6HR PRN PRN Reason: Fever/Mild Pain (1-3) Albuterol/Ipratropium (Albuterol/Ipratropium 3 Ml Ampul) 3 ml INH Q6H PRN PRN Reason: SOB/wheezing Chlorhexidine Gluconate (Chlorhexidine Gluconate 15 Ml Cup) 15 ml PO DAILY [facility] Last Admin: 11/11/22 14:36 Dose: 15 ml Documented By: ENEDELIA Lidocaine HCl 30 ml/ Al Hydrox /Mg Hydrox/Simethicone 30 ml/Diphenhydramine HCl 37.5 mg 0 ml MM Q4H PRN PRN Reason: Sore Throat Enoxaparin Sodium (Enoxaparin 40 Mg/0.4 Ml Syringe) 40 mg SUBCUT DAILY [facility] Last Admin: 11/11/22 14:53 Dose: Not Given Documented By: ENEDELIA Hydromorphone HCl (Hydromorphone 0.5 Mg Inj) 0.5 mg TUBE Q4H PRN PRN Reason: severe pain Last Admin: 11/11/22 22:00 Dose: 0.5 mg Documented By: Admin: 11/11/22 11:59 Dose: 0.5 mg Documented By: PROSPER Sodium Chloride (Normal Saline 0.9%) 1,000 mls @ 100 mls/hr IV CONT [facility] Stop: 11/11/22 23:44 Last Admin: 11/11/22 13:26 Dose: 100 mls/hr Documented By: NELLI Ceftriaxone Sodium 1,000 mg/ (Sodium Chloride) 100 mls @ 200 mls/hr IV Q24H [facility] Stop: 11/15/22 09:01 Azithromycin 500 mg/ Dextrose 250 mls @ 250 mls/hr IV Q24H [facility] Stop: 11/13/22 12:59 Last Admin: 11/11/22 13:26 Dose: 250 mls/hr Documented By: NELLI Metronidazole (Flagyl) 500 mg in 100 mls @ 100 mls/hr IV Q8H [facility] Last Infusion: 11/11/22 21:13 Dose: 0 mls/hr Documented By: Admin: 11/11/22 19:54 Dose: 100 mls/hr Documented By: Lactulose (Lactulose 20 Gm/30 Ml Solution) 20 gm PO BID PRN PRN Reason: constipation Last Admin: 11/11/22 14:37 Dose: 20 gm Documented By: ENEDELIA Lorazepam (Lorazepam 2 Mg/Ml Inj) 0.5 mg IV Q6HR PRN PRN Reason: Anxiety Melatonin (Melatonin 3 Mg Tablet) 6 mg TUBE BEDTIME PRN PRN Reason: Insomnia Naloxone HCl (Naloxone 0.4 Mg/Ml Vial) 0.2 mg IV Q2MIN PRN PRN Reason: Opiate Reversal Nf - Triamcinolone Acetonide 0.1 % Ointment 1 applictn TOP BID PRN PRN Reason: Rash Nystatin (Nystatin Susp 500,000 Unit/5 Ml Udc) 500,000 unit PO QID [facility] Last Admin: 11/11/22 21:07 Dose: 500,000 unit Documented By: Admin: 11/11/22 17:00 Dose: Not Given Documented By: Admin: 11/11/22 14:33 Dose: 500,000 unit Documented By: ENEDELIA Polyethylene Glycol (Polyethylene Glycol 3350 17 Gm Powd.Pack) 17 gm TUBE DAILY PRN PRN Reason: Constipation Polyethylene Glycol (Polyethylene Glycol 3350 17 Gm Powd.Pack) 17 gm TUBE DAILY [facility] Last Admin: 11/11/22 14:36 Dose: Not Given Documented By: ENEDELIA Sennosides (Sennosides 8.6 Mg Tablet) 8.6 mg TUBE BID PRN PRN Reason: Constipation Discontinued Medications Bacitracin (Bacitracin Oint 0.9 Gm Pckt) 1 applic TOP NOW ONE Stop: 11/11/22 08:02 Last Admin: 11/11/22 08:05 Dose: 1 applic Documented By: PROSPER Hydromorphone HCl (Hydromorphone 0.5 Mg Inj) 0.5 mg IV NOW ONE Stop: 11/11/22 08:01 Last Admin: 11/11/22 08:05 Dose: 0.5 mg Documented By: PROSPER Hydromorphone HCl (Hydromorphone 0.5 Mg Inj) 0.5 mg IV NOW ONE Stop: 11/11/22 11:53 Last Admin: 11/11/22 13:26 Dose: Not Given Documented By: NELLI Sodium Chloride (Normal Saline 0.9%) 1,000 mls @ 1,000 mls/hr IV BOLUS ONE Stop: 11/11/22 05:09 Last Infusion: 11/11/22 05:45 Dose: 0 mls/hr Documented By: Admin: 11/11/22 04:25 Dose: 1,000 mls/hr Documented By: MADIHA Sodium Chloride (Normal Saline 0.9%) 1,000 mls @ 1,000 mls/hr IV BOLUS ONE Stop: 11/11/22 05:24 Last Infusion: 11/11/22 07:53 Dose: 0 mls/hr Documented By: Admin: 11/11/22 06:04 Dose: 1,000 mls/hr Documented By: MADIHA Levofloxacin (Levaquin) 750 mg in 150 mls @ 100 mls/hr IV NOW ONE Stop: 11/11/22 05:59 Last Infusion: 11/11/22 06:18 Dose: 0 mls/hr Documented By: Admin: 11/11/22 04:48 Dose: 100 mls/hr Documented By: TABATHA Lorazepam (Lorazepam 2 Mg/Ml Inj) 1 mg IV NOW ONE Stop: 11/11/22 04:19 Last Admin: 11/11/22 04:26 Dose: 1 mg Documented By: MADIHA Vital Signs Vital signs: Vital Signs - 8 hr 11/11/22 05:30 11/11/22 05:30 11/11/22 06:00 Pulse Rate 129 H Respiratory Rate 28 H Blood Pressure 131/61 118/56 L Pulse Oximetry 96 11/11/22 06:00 11/11/22 06:30 11/11/22 06:30 Pulse Rate 127 H 117 H Respiratory Rate 23 24 Blood Pressure 124/79 Pulse Oximetry 97 95 11/11/22 07:00 11/11/22 07:04 11/11/22 07:04 Pulse Rate 127 H 128 H Respiratory Rate 46 H 47 H Blood Pressure 130/61 Pulse Oximetry 98 11/11/22 07:15 11/11/22 07:30 11/11/22 07:30 Pulse Rate 127 H 124 H Respiratory Rate 44 H 29 H Blood Pressure 121/56 L Pulse Oximetry 96 96 11/11/22 07:45 11/11/22 08:00 11/11/22 08:00 Pulse Rate 121 H 121 H Respiratory Rate 27 H Blood Pressure 124/56 L Pulse Oximetry 96 97 11/11/22 08:15 11/11/22 08:30 11/11/22 08:30 Pulse Rate 118 H 116 H Respiratory Rate 23 Blood Pressure 111/56 L Pulse Oximetry 96 96 11/11/22 08:45 11/11/22 09:00 11/11/22 09:00 Pulse Rate 114 H 114 H Respiratory Rate 25 H 29 H Blood Pressure 112/60 Pulse Oximetry 98 99 Medical Decision Making <Parker Cuevas, DO - Last Filed: 11/11/22 22:18> Lab Data 11/11/22 04:02 11/11/22 04:02 Labs: Lab Results 11/11/22 11/11/22 11/11/22 Range/Units 04:02 04:02 04:02 WBC 7.2 (4.5-11.0) X10^3/uL RBC 3.19 L (4.5-5.9) X10^6/uL Hgb 9.6 L (13.5-17.5) g/dL Hct 28.2 L (41-53) % MCV 88.5 (80-100) fL MCH 30.1 (26-34) PG MCHC 34.1 (30-36) % RDW 15.8 H (11.6-14.8) % Plt Count 426 H (150-400) X10^3/uL Neut % (Auto) 88.7 H (50-75) % Lymph % (Auto) 4.2 L (25-40) % Lares % (Auto) 6.9 (3-14) % Eos % (Auto) 0.1 L (2-4) % Baso % (Auto) 0.1 (0-2) % Neut # (Auto) 6400 (1124-4948) /uL Lymph # (Auto) 300 L (4263-5464) /uL Lares # (Auto) 500 (0-900) /uL Eos # (Auto) 0 (0-450) /uL Baso # (Auto) 0 (0-100) /uL D-Dimer 1801 H (<500) ng/ml Sodium (137-145) mmol/L Potassium (3.4-5.1) mmol/L Chloride (98-107) mmol/L Carbon Dioxide (22-32) mmol/L BUN (9-20) mg/dL Creatinine (0.66-1.25) mg/dL Estimated GFR (>60) mL/min BUN/Creatinine Ratio (6-22) Glucose (80-110) mg/dL Lactate (0.7-2.1) mmol/L Calcium (8.4-10.2) mg/dL Magnesium (1.6-2.3) mg/dL Total Bilirubin (0.2-1.3) mg/dL AST (17-59) IU/L ALT (<50) IU/L Alkaline Phosphatase (38-126) U/L Total Creatine Kinase 77 (55-170) U/L Troponin I 0.012 (0.01-0.034) ng/mL Total Protein (6.3-8.2) g/dL Albumin (3.5-5.0) g/dL Globulin (1.7-4.1) g/dL Albumin/Globulin Ratio (1.0-2.8) Procalcitonin 0.37 (<0.5) ng/mL SARS-CoV-2 (PCR) (Negative) Influenza A (RT-PCR) (NEGATIVE) Influenza B (RT-PCR) (NEGATIVE) RSV (PCR) (Negative) 0911/11/22 11/11/22 Range/Units 04:02 04:02 04:28 WBC (4.5-11.0) X10^3/uL RBC (4.5-5.9) X10^6/uL Hgb (13.5-17.5) g/dL Hct (41-53) % MCV (80-100) fL MCH (26-34) PG MCHC (30-36) % RDW (11.6-14.8) % Plt Count (150-400) X10^3/uL Neut % (Auto) (50-75) % Lymph % (Auto) (25-40) % Lares % (Auto) (3-14) % Eos % (Auto) (2-4) % Baso % (Auto) (0-2) % Neut # (Auto) (7588-4295) /uL Lymph # (Auto) (7941-7334) /uL Lares # (Auto) (0-900) /uL Eos # (Auto) (0-450) /uL Baso # (Auto) (0-100) /uL D-Dimer (<500) ng/ml Sodium 143 (137-145) mmol/L Potassium 4.2 (3.4-5.1) mmol/L Chloride 104 (98-107) mmol/L Carbon Dioxide 29 (22-32) mmol/L BUN 29 H (9-20) mg/dL Creatinine 0.56 L (0.66-1.25) mg/dL Estimated GFR > 60 (>60) mL/min BUN/Creatinine Ratio 51.8 H (6-22) Glucose 93 (80-110) mg/dL Lactate 4.9 H* (0.7-2.1) mmol/L Calcium 9.6 (8.4-10.2) mg/dL Magnesium 2.0 (1.6-2.3) mg/dL Total Bilirubin 0.5 (0.2-1.3) mg/dL AST 35 (17-59) IU/L ALT 38 (<50) IU/L Alkaline Phosphatase 101 (38-126) U/L Total Creatine Kinase (55-170) U/L Troponin I (0.01-0.034) ng/mL Total Protein 6.9 (6.3-8.2) g/dL Albumin 3.5 (3.5-5.0) g/dL Globulin 3.4 (1.7-4.1) g/dL Albumin/Globulin Ratio 1.0 (1.0-2.8) Procalcitonin (<0.5) ng/mL SARS-CoV-2 (PCR) Negative (Negative) Influenza A (RT-PCR) Flu a negative (NEGATIVE) Influenza B (RT-PCR) Flu b negative (NEGATIVE) RSV (PCR) Negative (Negative) 11/11/22 Range/Units 06:38 WBC (4.5-11.0) X10^3/uL RBC (4.5-5.9) X10^6/uL Hgb (13.5-17.5) g/dL Hct (41-53) % MCV (80-100) fL MCH (26-34) PG MCHC (30-36) % RDW (11.6-14.8) % Plt Count (150-400) X10^3/uL Neut % (Auto) (50-75) % Lymph % (Auto) (25-40) % Lares % (Auto) (3-14) % Eos % (Auto) (2-4) % Baso % (Auto) (0-2) % Neut # (Auto) (3028-6407) /uL Lymph # (Auto) (3229-1982) /uL Lares # (Auto) (0-900) /uL Eos # (Auto) (0-450) /uL Baso # (Auto) (0-100) /uL D-Dimer (<500) ng/ml Sodium (137-145) mmol/L Potassium (3.4-5.1) mmol/L Chloride (98-107) mmol/L Carbon Dioxide (22-32) mmol/L BUN (9-20) mg/dL Creatinine (0.66-1.25) mg/dL Estimated GFR (>60) mL/min BUN/Creatinine Ratio (6-22) Glucose (80-110) mg/dL Lactate 1.1 (0.7-2.1) mmol/L Calcium (8.4-10.2) mg/dL Magnesium (1.6-2.3) mg/dL Total Bilirubin (0.2-1.3) mg/dL AST (17-59) IU/L ALT (<50) IU/L Alkaline Phosphatase (38-126) U/L Total Creatine Kinase (55-170) U/L Troponin I (0.01-0.034) ng/mL Total Protein (6.3-8.2) g/dL Albumin (3.5-5.0) g/dL Globulin (1.7-4.1) g/dL Albumin/Globulin Ratio (1.0-2.8) Procalcitonin (<0.5) ng/mL SARS-CoV-2 (PCR) (Negative) Influenza A (RT-PCR) (NEGATIVE) Influenza B (RT-PCR) (NEGATIVE) RSV (PCR) (Negative) Urine Dip Bedside Urine Glucose Negative Bedside Urine Bilirubin - Negative Bedside Urine Ketone - Negative Urine Specific [place] 1.01 Bedside Urine Occult Blood - Negative Bedside Urine pH 7 Bedside Urine Protein - Negative Bedside Urine Urobilinogen - Negative Bedside Urine Nitrite - Negative Bedside Urine Leukocytes - Negative Esterase Point of care testing: Urine Dip Bedside Urine Glucose Negative Bedside Urine Bilirubin - Negative Bedside Urine Ketone - Negative Urine Specific [place] 1.01 Bedside Urine Occult Blood - Negative Bedside Urine pH 7 Bedside Urine Protein - Negative Bedside Urine Urobilinogen - Negative Bedside Urine Nitrite - Negative Bedside Urine Leukocytes - Negative Esterase MDM Narrative Medical decision making narrative: [76] year old patient presents with feeling anxious, high heart rate, high blood pressure, feeling cold Multiple etiologies for patient's symptoms considered including, but not limited to: [Aspiration event versus pulmonary embolism versus pneumonia versus sepsis from other source versus other] Prior Charts reviewed in our EMR Primary Historian: patient Labs reviewed and interpreted by myself: Imaging reviewed: Consultations: Patient's symptoms improved over duration of stay with above-stated therapies. Findings and discharge diagnosis discussed with patient/family followed by verbalization of understanding Return precautions discussed with patient/family whom verbalize understanding of diagnosis and plan <Faby Ramirez MD - Last Filed: 11/11/22 19:19> Lab Data Labs: Lab Results 11/11/22 11/11/22 11/11/22 Range/Units 04:02 04:02 04:02 WBC 7.2 (4.5-11.0) X10^3/uL RBC 3.19 L (4.5-5.9) X10^6/uL Hgb 9.6 L (13.5-17.5) g/dL Hct 28.2 L (41-53) % MCV 88.5 (80-100) fL MCH 30.1 (26-34) PG MCHC 34.1 (30-36) % RDW 15.8 H (11.6-14.8) % Plt Count 426 H (150-400) X10^3/uL Neut % (Auto) 88.7 H (50-75) % Lymph % (Auto) 4.2 L (25-40) % Lares % (Auto) 6.9 (3-14) % Eos % (Auto) 0.1 L (2-4) % Baso % (Auto) 0.1 (0-2) % Neut # (Auto) 6400 (2471-9489) /uL Lymph # (Auto) 300 L (3306-3611) /uL Lares # (Auto) 500 (0-900) /uL Eos # (Auto) 0 (0-450) /uL Baso # (Auto) 0 (0-100) /uL D-Dimer 1801 H (<500) ng/ml Sodium (137-145) mmol/L Potassium (3.4-5.1) mmol/L Chloride (98-107) mmol/L Carbon Dioxide (22-32) mmol/L BUN (9-20) mg/dL Creatinine (0.66-1.25) mg/dL Estimated GFR (>60) mL/min BUN/Creatinine Ratio (6-22) Glucose (80-110) mg/dL Lactate (0.7-2.1) mmol/L Calcium (8.4-10.2) mg/dL Magnesium (1.6-2.3) mg/dL Total Bilirubin (0.2-1.3) mg/dL AST (17-59) IU/L ALT (<50) IU/L Alkaline Phosphatase (38-126) U/L Total Creatine Kinase 77 (55-170) U/L Troponin I 0.012 (0.01-0.034) ng/mL Total Protein (6.3-8.2) g/dL Albumin (3.5-5.0) g/dL Globulin (1.7-4.1) g/dL Albumin/Globulin Ratio (1.0-2.8) Procalcitonin 0.37 (<0.5) ng/mL SARS-CoV-2 (PCR) (Negative) Influenza A (RT-PCR) (NEGATIVE) Influenza B (RT-PCR) (NEGATIVE) RSV (PCR) (Negative) 11/11/22 11/11/22 11/11/22 Range/Units 04:02 04:02 04:28 WBC (4.5-11.0) X10^3/uL RBC (4.5-5.9) X10^6/uL Hgb (13.5-17.5) g/dL Hct (41-53) % MCV (80-100) fL MCH (26-34) PG MCHC (30-36) % RDW (11.6-14.8) % Plt Count (150-400) X10^3/uL Neut % (Auto) (50-75) % Lymph % (Auto) (25-40) % Lares % (Auto) (3-14) % Eos % (Auto) (2-4) % Baso % (Auto) (0-2) % Neut # (Auto) (9305-9353) /uL Lymph # (Auto) (4783-1364) /uL Lares # (Auto) (0-900) /uL Eos # (Auto) (0-450) /uL Baso # (Auto) (0-100) /uL D-Dimer (<500) ng/ml Sodium 143 (137-145) mmol/L Potassium 4.2 (3.4-5.1) mmol/L Chloride 104 (98-107) mmol/L Carbon Dioxide 29 (22-32) mmol/L BUN 29 H (9-20) mg/dL Creatinine 0.56 L (0.66-1.25) mg/dL Estimated GFR > 60 (>60) mL/min BUN/Creatinine Ratio 51.8 H (6-22) Glucose 93 (80-110) mg/dL Lactate 4.9 H* (0.7-2.1) mmol/L Calcium 9.6 (8.4-10.2) mg/dL Magnesium 2.0 (1.6-2.3) mg/dL Total Bilirubin 0.5 (0.2-1.3) mg/dL AST 35 (17-59) IU/L ALT 38 (<50) IU/L Alkaline Phosphatase 101 (38-126) U/L Total Creatine Kinase (55-170) U/L Troponin I (0.01-0.034) ng/mL Total Protein 6.9 (6.3-8.2) g/dL Albumin 3.5 (3.5-5.0) g/dL Globulin 3.4 (1.7-4.1) g/dL Albumin/Globulin Ratio 1.0 (1.0-2.8) Procalcitonin (<0.5) ng/mL SARS-CoV-2 (PCR) Negative (Negative) Influenza A (RT-PCR) Flu a negative (NEGATIVE) Influenza B (RT-PCR) Flu b negative (NEGATIVE) RSV (PCR) Negative (Negative) 11/11/22 Range/Units 06:38 WBC (4.5-11.0) X10^3/uL RBC (4.5-5.9) X10^6/uL Hgb (13.5-17.5) g/dL Hct (41-53) % MCV (80-100) fL MCH (26-34) PG MCHC (30-36) % RDW (11.6-14.8) % Plt Count (150-400) X10^3/uL Neut % (Auto) (50-75) % Lymph % (Auto) (25-40) % Lares % (Auto) (3-14) % Eos % (Auto) (2-4) % Baso % (Auto) (0-2) % Neut # (Auto) (9569-0603) /uL Lymph # (Auto) (8184-5938) /uL Lares # (Auto) (0-900) /uL Eos # (Auto) (0-450) /uL Baso # (Auto) (0-100) /uL D-Dimer (<500) ng/ml Sodium (137-145) mmol/L Potassium (3.4-5.1) mmol/L Chloride (98-107) mmol/L Carbon Dioxide (22-32) mmol/L BUN (9-20) mg/dL Creatinine (0.66-1.25) mg/dL Estimated GFR (>60) mL/min BUN/Creatinine Ratio (6-22) Glucose (80-110) mg/dL Lactate 1.1 (0.7-2.1) mmol/L Calcium (8.4-10.2) mg/dL Magnesium (1.6-2.3) mg/dL Total Bilirubin (0.2-1.3) mg/dL AST (17-59) IU/L ALT (<50) IU/L Alkaline Phosphatase (38-126) U/L Total Creatine Kinase (55-170) U/L Troponin I (0.01-0.034) ng/mL Total Protein (6.3-8.2) g/dL Albumin (3.5-5.0) g/dL Globulin (1.7-4.1) g/dL Albumin/Globulin Ratio (1.0-2.8) Procalcitonin (<0.5) ng/mL SARS-CoV-2 (PCR) (Negative) Influenza A (RT-PCR) (NEGATIVE) Influenza B (RT-PCR) (NEGATIVE) RSV (PCR) (Negative) Urine Dip Bedside Urine Glucose Negative Bedside Urine Bilirubin - Negative Bedside Urine Ketone - Negative Urine Specific [place] 1.01 Bedside Urine Occult Blood - Negative Bedside Urine pH 7 Bedside Urine Protein - Negative Bedside Urine Urobilinogen - Negative Bedside Urine Nitrite - Negative Bedside Urine Leukocytes - Negative Esterase Point of care testing: Urine Dip Bedside Urine Glucose Negative Bedside Urine Bilirubin - Negative Bedside Urine Ketone - Negative Urine Specific [place] 1.01 Bedside Urine Occult Blood - Negative Bedside Urine pH 7 Bedside Urine Protein - Negative Bedside Urine Urobilinogen - Negative Bedside Urine Nitrite - Negative Bedside Urine Leukocytes - Negative Esterase MDM Narrative Medical decision making narrative: [76] year old patient presents with feeling anxious, high heart rate, high blood pressure, feeling cold Multiple etiologies for patient's symptoms considered including, but not limited to: [Aspiration event versus pulmonary embolism versus pneumonia versus sepsis from other source versus other] Prior Charts reviewed in our EMR Primary Historian: patient Labs reviewed and interpreted by myself: Imaging reviewed: Consultations: Patient's symptoms improved over duration of stay with above-stated therapies. Additional Information: Patient hemodynamically stable. Unable to transfer patient to [facility] due to capacity. He is received IV antibiotics. He will be admitted to the hospital for additional antibiotic treatment. Discharge Plan Departure Patient Disposition: Admitted As Inpatient Clinical Impression: Tongue neoplasm, Pneumonia Admit Date/Time: 11/11/22 10:37 Admit Provider: Warner Ingram
[2022-11-11] MEDS: SODIUM CHLORIDE 0.9% 1,000 ML 1000 ML IV ×2 (04:25→06:04)
[2022-11-11 04:26] LABS: D Dimer 1801 ng/ml (<500)
[2022-11-11] MEDS: LORazepam 2 MG/ML INJ 1 MG IV (04:26)
[2022-11-11 04:29] LABS: Alanine Aminotransferase 38 IU/L (<50); Albumin 3.5 g/dL (3.5-5.0); Alkaline Phosphatase 101 U/L (38-126); Aspartate Aminotransferase 35 IU/L (17-59); BUN Creatinine Ratio 51.8 (6-22); Bilirubin Total 0.5 mg/dL (0.2-1.3); Blood Urea Nitrogen 29 mg/dL (9-20); Calcium 9.6 mg/dL (8.4-10.2); Carbon Dioxide 29 mmol/L (22-32); Chloride 104 mmol/L (98-107); Estimated Glomerular Filt Rate > 60 mL/min (>60); Globulin 3.4 g/dL (1.7-4.1); Glucose 93 mg/dL (80-110); HEMOLYSIS < 15 (0-50); Potassium 4.2 mmol/L (3.4-5.1); Sodium 143 mmol/L (137-145); Total Protein 6.9 g/dL (6.3-8.2)
[2022-11-11 04:30] LABS: Creatine Kinase 77 U/L (55-170)
[2022-11-11 04:32] LABS: Add Manual Diff / Slide Review NO; Basophils Absolute Auto 0 /uL (0-100); Basophils Percent Auto 0.1 % (0-2); Eosinophils Absolute Auto 0 /uL (0-450); Eosinophils Percent Auto 0.1 % (2-4); Hematocrit 28.2 % (41-53); Hemoglobin 9.6 g/dL (13.5-17.5); Lymphocytes Absolute Auto 300 /uL (1100-4500); Lymphocytes Percent Auto 4.2 % (25-40); Mean Corpuscular HGB Conc 34.1 % (30-36); Mean Corpuscular Hemoglobin 30.1 PG (26-34); Mean Corpuscular Volume 88.5 fL (80-100); Monocytes Absolute Auto 500 /uL (0-900); Monocytes Percent Auto 6.9 % (3-14); Neutrophils Absolute Auto 6400 /uL (1500-7000); Neutrophils Percent Auto 88.7 % (50-75); Platelet Count 426 X10^3/uL (150-400); Red Blood Cell Count 3.19 X10^6/uL (4.5-5.9); Red Cell Distribution Width 15.8 % (11.6-14.8); White Blood Cell Count 7.2 X10^3/uL (4.5-11.0)
[2022-11-11 04:41] LABS: Lactate (Lactic Acid) 4.9 mmol/L (0.7-2.1); Troponin I 0.012 ng/mL (0.01-0.034)
--- NOTE | 2022-11-11 04:41 | DI.CT.S_ITS ---
PROCEDURE: CT ANGIO CHEST PE PROTOCOL INDICATIONS: CP, SOB, hypoxia TECHNIQUE: After the administration of intravenous contrast, 2 mm thick sections acquired from the pulmonary apices to the posterior costophrenic angles. 3-dimensional maximum intensity projection (MIP) coronal and sagittal reformats were then acquired through the thorax. For radiation dose reduction, the following was used: automated exposure control, adjustment of mA and/or kV according to patient size. COMPARISON: [facility], CT, CT CHEST WITH CONTRAST, 07/07/2022, 9:16. [facility], NM, PET NECK TO MID THIGH, 06/24/2022, 9:34. [facility], CT, CT ANGIO CHEST PE, 07/13/2022, 15:45. [facility], CR, XR CHEST 1 VIEW, 08/25/2022, 13:35. [facility], CT, CT CHEST WITH CONTRAST, 08/30/2022, 15:04. FINDINGS: Image quality: Excellent. Pulmonary arteries: Pulmonary arteries are normal in size, and demonstrate no intraluminal filling defects to suggest central pulmonary embolism. Lungs and pleura: Right middle lobe and lower lobe infiltrate and consolidation consistent with pneumonia. There is concomitant right basilar atelectasis. Multiple subpleural pulmonary nodules are present bilaterally. Reference lesions are listed in the following: Nodule 1: 5 mm; left upper lobe adjacent to the major fissure; series 7, image 130. Nodule 2: 6 mm; right upper lobe; series 7, image 106. Nodule 3: 7 mm; right lower lobe; series 7, image 157. Nodule 4: 5 x 12 mm; left lower lobe; series 7, image 102. Nodule 5: 7 mm; left lower lobe; series 7, image 100. There is filling defect in the right lower lobe bronchus, probably mucous plaques. Pleural thickening in the right hemithorax. A loculated pleural fluid collection is present in the right lower hemithorax with peripheral enhancement suggesting emphysema. The appearance is not significant changed. Mediastinum: Heart size is normal, without pericardial effusion. There is a borderline sized right hilar lymph node measuring 1 cm. Thoracic aorta is normal in caliber and enhancement. Esophagus is normal in caliber, without hiatal hernia. Bones and chest wall: No suspicious bony lesions. Ribs and thoracic spine appear intact throughout. Thyroid gland is unremarkable. No axillary or supraclavicular adenopathy. A left Port-A-Cath is noted. Abdomen: Visualized upper abdominal solid organs appear normal in the early arterial phase of enhancement. IMPRESSION: 1. No evidence for pulmonary embolism. 2. Right lower lobe and middle lobe infiltrate and consolidation consistent with pneumonia. 3. Pleural thickening in the right hemidiaphragm with loculated pleural fluid, unchanged. This may represent empyema. 4. Stable subpleural pulmonary nodules bilaterally. No significant discrepancy with the livery car driver radiology preliminary report. Dictated by: Francia Gustafson M.D. on 11/11/2022 at 8:35 Approved by: Francia Gustafson M.D. on 11/11/2022 at 8:48
[2022-11-11 04:46] LABS: Procalcitonin 0.37 ng/mL (<0.5)
[2022-11-11] MEDS: levoFLOXacin 750 MG/150 ML PIGGYBACK 100 MG IV (04:48)
[2022-11-11 05:28] LABS: Influenza A - CEPHEID Flu A NEGATIVE (NEGATIVE); Influenza B - CEPHEID Flu B NEGATIVE (NEGATIVE); Respiratory Syncytial Virus Negative (Negative)
[2022-11-11 05:38] LABS: COVID-19 CEPHEID 4-PLEX PCR Negative (Negative)
[2022-11-11 06:20] LABS: Reflexed Lactate in 2 Hours Y
[2022-11-11 06:57] LABS: Lactate 2HR (Lactic Acid Rflx) 1.1 mmol/L (0.7-2.1)
[2022-11-11] MEDS: HYDROMORPHONE 0.5 MG INJ IV (08:05)
[2022-11-11] MEDS: BACITRACIN OINT 0.9 GM PCKT 1 APPLIC TOP (08:05)
--- NOTE | 2022-11-11 11:46 | P.HP_ITS ---
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 Daughter is providing most of the history as patient is hard to understand with hoarse voice and lots of secretions. She states he has been coughing alot lately and felt like he choked this morning on his secretions. They brought him to the ED due to elevated BP, HR and anxiety about the episode. In the ED found to have RLL pneumonia. Procal 0.37. Normal WBC. CTPA negative for PE but showed chronic R loculated pleural effusion and RLL and RML infiltrates. Patient denies CP, weakness, dizziness, abd pain or diarrhea. 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 household members: spouse and children Smoking Status: Former smoker alcohol intake: never Meds Home Medications and Allergies Home Medications Medication Instructions Recorded Confirmed Type chlorhexidine gluconate 0.12 % 15 ml buccal DAILY 06/01/22 11/11/22 History mouthwash ipratropium 0.5 mg-albuterol 3 mg 3 ml inhalation Q6H 06/01/22 11/11/22 History (2.5 mg base)/3 mL nebulization soln nebulizer and compressor #1 ea 06/01/22 11/11/22 History (InnoSpire Essence device) Magic Mouth wash 10 ml PO Q4-6H PRN sever throat 06/03/22 11/11/22 Rx pain #120 mL polyethylene glycol 3350 17 17 g PO DAILY #238 grams 06/12/22 11/11/22 Rx gram/dose oral powder (Miralax) lactulose 10 gram/15 mL (15 mL) 20 g (30 mL) PO BID PRN 06/15/22 11/11/22 Rx oral solution constipation #600 mL hydromorphone 1 mg/mL oral liquid 0.5 mg feeding tube Q4H PRN severe 11/11/22 11/11/22 History pain nystatin 100,000 unit/mL oral 5 ml PO 4XD 11/11/22 11/11/22 History suspension triamcinolone acetonide 0.1 % 1 applic topical BID PRN Rash 11/11/22 11/11/22 History topical ointment Allergies Allergy/AdvReac Type Severity Reaction Status Date / Time No Known Drug Allergies Allergy Verified 06/17/22 16:31 Review of Systems Review of Systems Narrative: All other systems reviewed with the patient and are negative unless otherwise stated. Exam Vital Signs (past 8 hours): - 11/11/22 04:00 11/11/22 03:59 11/11/22 04:00 Temperature 98.1 F Pulse Rate 137 H 76 Respiratory Rate 34 H Blood Pressure 157/67 H 157/67 H Pulse Oximetry 94 92 Oxygen Delivery Method Room Air 11/11/22 04:00 11/11/22 04:30 11/11/22 04:30 Temperature Pulse Rate 141 H 129 H Respiratory Rate 34 H Blood Pressure 163/69 H Pulse Oximetry 94 93 Oxygen Delivery Method 11/11/22 05:12 11/11/22 05:14 11/11/22 05:14 Temperature Pulse Rate 133 H 131 H Respiratory Rate 41 H 30 H Blood Pressure 137/61 Pulse Oximetry 90 L 94 Oxygen Delivery Method 11/11/22 05:30 11/11/22 05:30 11/11/22 06:00 Temperature Pulse Rate 129 H Respiratory Rate 28 H Blood Pressure 131/61 118/56 L Pulse Oximetry 96 Oxygen Delivery Method 11/11/22 06:00 11/11/22 06:30 11/11/22 06:30 Temperature Pulse Rate 127 H 117 H Respiratory Rate 23 24 Blood Pressure 124/79 Pulse Oximetry 97 95 Oxygen Delivery Method 11/11/22 07:00 11/11/22 07:04 11/11/22 07:04 Temperature Pulse Rate 127 H 128 H Respiratory Rate 46 H 47 H Blood Pressure 130/61 Pulse Oximetry 98 Oxygen Delivery Method 11/11/22 07:15 11/11/22 07:30 11/11/22 07:30 Temperature Pulse Rate 127 H 124 H Respiratory Rate 44 H 29 H Blood Pressure 121/56 L Pulse Oximetry 96 96 Oxygen Delivery Method 11/11/22 07:45 11/11/22 08:00 11/11/22 08:00 Temperature Pulse Rate 121 H 121 H Respiratory Rate 27 H Blood Pressure 124/56 L Pulse Oximetry 96 97 Oxygen Delivery Method 11/11/22 08:15 11/11/22 08:30 11/11/22 08:30 Temperature Pulse Rate 118 H 116 H Respiratory Rate 23 Blood Pressure 111/56 L Pulse Oximetry 96 96 Oxygen Delivery Method 11/11/22 08:45 11/11/22 09:00 11/11/22 09:00 Temperature Pulse Rate 114 H 114 H Respiratory Rate 25 H 29 H Blood Pressure 112/60 Pulse Oximetry 98 99 Oxygen Delivery Method 11/11/22 10:43 11/11/22 10:44 11/11/22 10:44 Temperature Pulse Rate 109 H Respiratory Rate 39 H Blood Pressure 125/60 Pulse Oximetry 89 L 97 Oxygen Delivery Method 11/11/22 10:45 Temperature Pulse Rate 106 H Respiratory Rate 32 H Blood Pressure Pulse Oximetry 97 Oxygen Delivery Method Oxygen Delivery Method Room Air Narrative Exam Narrative: GEN: ill-appearing, diaphoretic HEENT: moist mucous membranes, PERRL, coughing lots of secretions NECK: trachea midline, no JVD CV: regular rate and rhythm, no murmurs PULM: coarse breath sounds bilaterally ABD: soft, nontender, nondistended, no organomegaly EXT: warm and well perfused with no edema NEURO: awake, alert, oriented, no focal deficits Objective Labs 11/11/22 04:02 11/11/22 04:02 Labs: Laboratory Results - last 24 hr 11/11/22 11/11/22 11/11/22 04:02 04:02 04:02 WBC 7.2 RBC 3.19 L Hgb 9.6 L Hct 28.2 L MCV 88.5 MCH 30.1 MCHC 34.1 RDW 15.8 H Plt Count 426 H Neut % (Auto) 88.7 H Lymph % (Auto) 4.2 L [place] % (Auto) 6.9 Eos % (Auto) 0.1 L Baso % (Auto) 0.1 Neut # (Auto) 6400 Lymph # (Auto) 300 L [place] # (Auto) 500 Eos # (Auto) 0 Baso # (Auto) 0 D-Dimer 1801 H Sodium Potassium Chloride Carbon Dioxide BUN Creatinine Estimated GFR BUN/Creatinine Ratio Glucose Lactate Calcium Magnesium Total Bilirubin AST ALT Alkaline Phosphatase Total Creatine Kinase 77 Troponin I 0.012 Total Protein Albumin Globulin Albumin/Globulin Ratio Procalcitonin 0.37 SARS-CoV-2 (PCR) Influenza A (RT-PCR) Influenza B (RT-PCR) RSV (PCR) 11/11/22 11/11/22 11/11/22 04:02 04:02 04:28 WBC RBC Hgb Hct MCV MCH MCHC RDW Plt Count Neut % (Auto) Lymph % (Auto) [place] % (Auto) Eos % (Auto) Baso % (Auto) Neut # (Auto) Lymph # (Auto) [place] # (Auto) Eos # (Auto) Baso # (Auto) D-Dimer Sodium 143 Potassium 4.2 Chloride 104 Carbon Dioxide 29 BUN 29 H Creatinine 0.56 L Estimated GFR > 60 BUN/Creatinine Ratio 51.8 H Glucose 93 Lactate 4.9 H* Calcium 9.6 Magnesium 2.0 Total Bilirubin 0.5 AST 35 ALT 38 Alkaline Phosphatase 101 Total Creatine Kinase Troponin I Total Protein 6.9 Albumin 3.5 Globulin 3.4 Albumin/Globulin Ratio 1.0 Procalcitonin SARS-CoV-2 (PCR) Negative Influenza A (RT-PCR) Flu a negative Influenza B (RT-PCR) Flu b negative RSV (PCR) Negative 11/11/22 06:38 WBC RBC Hgb Hct MCV MCH MCHC RDW Plt Count Neut % (Auto) Lymph % (Auto) [place] % (Auto) Eos % (Auto) Baso % (Auto) Neut # (Auto) Lymph # (Auto) [place] # (Auto) Eos # (Auto) Baso # (Auto) D-Dimer Sodium Potassium Chloride Carbon Dioxide BUN Creatinine Estimated GFR BUN/Creatinine Ratio Glucose Lactate 1.1 Calcium Magnesium Total Bilirubin AST ALT Alkaline Phosphatase Total Creatine Kinase Troponin I Total Protein Albumin Globulin Albumin/Globulin Ratio Procalcitonin SARS-CoV-2 (PCR) Influenza A (RT-PCR) Influenza B (RT-PCR) RSV (PCR) Assessment & Plan Assessment & Plan narrative: # right lower lobe pneumonia, with possible empyema -concerning for aspiration with prior records showing history of dysphagia -CTPA with RLL and RML infiltrates, loculated R pleural effusion -Rocephin, azithromycin and flagyl ordered -speech therapy consulted as below due to likely aspirating -sputum culture ordered -if not improving, may need chest tube for empyema # dysphagia with chronic G-tube in place -patient apparently sips small amounts of liquids and working with CASE MANAGEMENT ASSISTANT at [facility] -continue tube feeds via G-tube, keep NPO -patient self-suctioning secretions on his own -dietary consulted -speech consult as above and MBS -daily chlorhexidine mouthwashes -check mouthwash as needed for throat pain -triamcinolone cream b.i.d. as needed around G-tube site # stage II squamous cell carcinoma tongue -followed by ENT and Dr. Stevenson Oncology at [facility] -currently on weekly carboplatin, Taxol chemo and radiation started on 09/26/2022 -missed radiation appointment on 11/11 which will be rescheduled for next week # chronic cancer pain -continue liquid Dilaudid as needed # anxiety -patient had episode of anxiety attack at home -IV Ativan as needed # oral thrush -nystatin swishes Code status is Full code. DVT prophylaxis with lovenox. Proxy is daughter Patricia. I have reviewed home meds and used all available resources to reconcile the home meds. Case discussed with ED physician/APC and patient will be admitted to the hospitalist service for further workup and management. This patient will be admitted as inpatient and will require greater than 2 midnights of hospital time to treat PNA.
[2022-11-11] MEDS: HYDROMORPHONE 0.5 MG INJ TUBE ×2 (11:59→22:00)
[2022-11-11] MEDS: AZITHROMYCIN 500 MG in DEXTROSE 5% IN WATER 250 ML 250 MG IV (13:26)
[2022-11-11] MEDS: SODIUM CHLORIDE 0.9% 1,000 ML 100 ML IV (13:26)
--- NOTE | 2022-11-11 14:04 | PC.NURSE ---
report obtained from Jennifer Fernández and care assumed of patient. New admit to Room 217.
[2022-11-11] MEDS: NYSTATIN SUSP 500,000 UNIT/5 ML UDC 500000 UNIT PO ×2 (14:33→21:07)
[2022-11-11] MEDS: CHLORHEXIDINE GLUCONATE 15 ML CUP PO (14:36)
[2022-11-11] MEDS: LACTULOSE 20 GM/30 ML SOLUTION PO (14:37)
--- NOTE | 2022-11-11 18:22 | ST.IPCSEOM ---
Visit Care Team Role Provider Type Shady Eric MD Primary Care Provider Physician Specialty: Internal Medicine Address: [address] [place] [address] Email: [email or web address] DO Emergency Provider Physician Specialty: Emergency Medicine Address: [address] [place] [address] Email: [email or web address] Ingram DO Admit Provider Physician Attending Provider Referring Provider Specialty: Internal Medicine Address: [address] [place] [address] Email: [email or web address] Current Diagnoses Pneumonitis due to inhalation of food and vomit (11/11/22) Past Medical History (Last Reviewed 11/11/22 @ 04:19 by Parker Cuevas DO) Aspiration into airway (Medical) Dysphagia (Medical) History of traumatic injury of head (Medical) Tongue neoplasm (Medical) Weight loss (Medical) Speech-Language Pathology Swallow Evaluation LOOP DRIER OPERATOR Clinical Swallow Evaluation Start: 11/11/22 16:14 Freq: Status: Active Protocol: Document 11/11/22 16:15 (Rec: 11/11/22 16:27 [id number]) Clinical Swallow Evaluation Session Time Visit Start Time 13:15 Visit Stop Time 14:15 Total Visit Minutes 60 Referral Referring Provider hospitalist Reason for Referral dysphagia/PNA Setting Assessment Location Acute Care Visit Type Note Type Initial evaluation Patient Information Identification Type Name History 76 y/o man currently in tx for cancer of the tongue. Main intake via G tube, with family started trials of liquids in the last 2-3 weeks. Brought in with increased PNA. Subjective Observations Very supportive family. Patient very fatigued and napped most of session while ST discussed current hx w family (daughter and ). Pt has a very difficult time speaking d/t radiation treatments. Reported by Patient/Caregiver Pain/Discomfort Yes Location Neck Other Symptoms Difficulty swallowing liquids, Difficulty swallowing pills, Difficulty swallowing solids, History of aspiration or pneumonia Current Diet NPO The IDDSI Framework Protocol: IDDSI.1 Objective Assessment Mental Status Lethargic Dentition Missing teeth Lip Function Within normal limits Observation of Lips at Rest Symmetrical Lip Retraction Within normal limits Comment OME not completed in full, assessment largely based on family report, visual screen, and known deficts d/t CA and radiation. The IDDSI Framework Protocol: IDDSI.1 Findings Swallowing Function Oropharyngeal phase dysphagia Swallowing Function Comments Pt currently NPO, with occassional trials of liquids with family Severity of Swallow Impairment Severely impaired Contributing Factors to Swallow Reduced oral strength/ Impairment coordination/sensation, Impaired oral-pharyngeal transport,Reduced laryngeal excursion,Impaired airway protection Comment Following extensive conversation with family, no PO trials were administered. Pt is seeing an ST in [facility] that is working w them to wean from G tube post completion of radiation and encouraged, per family, small trials of thin liquids to stimulate the swallow. Family has been offering small amounts of water, ice, ice cream, milkshakes, and once, cola with varying success. Per family, pt has had a low level of PNA since the beginning of the year, during treatment, with an exacerbation leading to this hospitalization. Per daughter, oral care has been performed 2x/day with swabs and nystatin d/t blistering and pain in mouth from radiation tx. ST provided education on importance of oral care even with NPO status and especially prior to all oral intake to reduce the risk of PNA d/t aspiration, as it is generally the bacteria in the mouth that would lead to a PNA, and perferably w a toothbrush due to bio film. Family and ST in agreement that patient will remain NPO with the exception of family and caregivers will limit po intake to water and ice chips, and only immediately following oral care. Swabs and nystatin to be continued rather than a brush d/t pain in mouth. Pt is already scheduled for an outpatient MBS w current LOOP DRIER OPERATOR. No further ST would be required unless further patient/caregiver education is required. Impact on Safety and Functioning Risk for aspiration Recommendations Instrumental Assessment No Swallowing Treatment No Recommended Solids NPO Other Recommendations Family verbalized good understanding of need for oral care prior to any trials by mouth and ST recommendation to limit intake to water and ice chips, provided only after oral care and by caregivers and family until PNA resolves. Medication Recommendations Not Recommended by Mouth Education Patient/Caregiver Education Patient expressed understanding of evaluation, Patient expressed agreement with goals & treatment plans
[2022-11-11] MEDS: metroNIDAZOLE 500 MG/100 ML PIGGYBACK 100 MG IV (19:54)
[2022-11-12 00:52] VITALS: BP 140/67; PULSE 97; RESP 20; TEMP 37; O2SAT 98
[2022-11-12] MEDS: metroNIDAZOLE 500 MG/100 ML PIGGYBACK 100 MG IV ×3 (03:00→19:41)
[2022-11-12] MEDS: HYDROMORPHONE 0.5 MG INJ TUBE (03:00)
[2022-11-12 05:29] LABS: Add Manual Diff / Slide Review NO; Basophils Absolute Auto 0 /uL (0-100); Basophils Percent Auto 0.2 % (0-2); Eosinophils Absolute Auto 100 /uL (0-450); Eosinophils Percent Auto 0.8 % (2-4); Hematocrit 23.6 % (41-53); Lymphocytes Absolute Auto 300 /uL (1100-4500); Lymphocytes Percent Auto 3.8 % (25-40); Mean Corpuscular Hemoglobin 30.2 PG (26-34); Mean Corpuscular Volume 88.7 fL (80-100); Monocytes Absolute Auto 700 /uL (0-900); Monocytes Percent Auto 8.8 % (3-14); Neutrophils Absolute Auto 6700 /uL (1500-7000); Neutrophils Percent Auto 86.4 % (50-75); Platelet Count 340 X10^3/uL (150-400); Red Blood Cell Count 2.66 X10^6/uL (4.5-5.9); Red Cell Distribution Width 15.9 % (11.6-14.8); White Blood Cell Count 7.8 X10^3/uL (4.5-11.0)
[2022-11-12 05:36] LABS: BUN Creatinine Ratio 43.5 (6-22); Blood Urea Nitrogen 20 mg/dL (9-20); Calcium 8.7 mg/dL (8.4-10.2); Carbon Dioxide 29 mmol/L (22-32); Chloride 104 mmol/L (98-107); Estimated Glomerular Filt Rate > 60 mL/min (>60); Glucose 100 mg/dL (80-110); HEMOLYSIS < 15 (0-50); Potassium 4.2 mmol/L (3.4-5.1); Sodium 140 mmol/L (137-145)
[2022-11-12 05:53] LABS: Procalcitonin 3.94 ng/mL (<0.5)
[2022-11-12 06:37] VITALS: BP 137/67; PULSE 99; RESP 20; TEMP 36.9; O2SAT 98
--- NOTE | 2022-11-12 07:51 | PM.PN.1 ---
Subjective Subjective Interval history: Patient having less sputum production today. MBS ordered but cannot be done until Monday. Exam Vital Signs (past 8 hours): - 11/12/22 00:52 11/12/22 06:37 Temperature 98.6 F 98.4 F Pulse Rate 97 H 99 H Respiratory Rate 20 20 Blood Pressure 140/67 137/67 Pulse Oximetry 98 98 Oxygen Flow Rate 0 0 Oxygen Delivery Method Room Air Oxygen Flow Rate 0 Narrative Exam Narrative: GEN: ill-appearing, diaphoretic HEENT: moist mucous membranes, PERRL, coughing lots of secretions NECK: trachea midline, no JVD CV: regular rate and rhythm, no murmurs PULM: coarse breath sounds bilaterally ABD: soft, nontender, nondistended, no organomegaly EXT: warm and well perfused with no edema NEURO: awake, alert, oriented, no focal deficits Objective Labs 11/12/22 04:50 11/12/22 04:50 Labs: Laboratory Results - last 24 hr 11/12/22 11/12/22 11/12/22 04:50 04:50 04:50 WBC 7.8 RBC 2.66 L Hgb 8.0 L Hct 23.6 L MCV 88.7 MCH 30.2 MCHC 34.0 RDW 15.9 H Plt Count 340 Neut % (Auto) 86.4 H Lymph % (Auto) 3.8 L [place] % (Auto) 8.8 Eos % (Auto) 0.8 L Baso % (Auto) 0.2 Neut # (Auto) 6700 Lymph # (Auto) 300 L [place] # (Auto) 700 Eos # (Auto) 100 Baso # (Auto) 0 Sodium 140 Potassium 4.2 Chloride 104 Carbon Dioxide 29 BUN 20 Creatinine 0.46 L Estimated GFR > 60 BUN/Creatinine Ratio 43.5 H Glucose 100 Calcium 8.7 Procalcitonin 3.94 H PFSH Medical History Aspiration into airway Dysphagia History of traumatic injury of head Tongue neoplasm Weight loss Social History details: (Maria De Jesus), daughter Chayito, 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 household members: spouse and children Smoking Status: Former smoker alcohol intake: never Assessment & Plan Assessment & Plan narrative: # right lower lobe pneumonia, with possible empyema -concerning for aspiration with prior records showing history of dysphagia -CTPA with RLL and RML infiltrates, loculated R pleural effusion -Rocephin, azithromycin and flagyl ordered -speech therapy consulted as below due to likely aspirating -sputum culture pending -if not improving, may need chest tube for empyema # dysphagia with chronic G-tube in place -patient apparently sips small amounts of liquids and working with GRID MAKER at [facility] -continue tube feeds via G-tube, keep NPO -patient self-suctioning secretions on his own -dietary consulted -speech consult as above and MBS ordered for 10/ -daily chlorhexidine mouthwashes -check mouthwash as needed for throat pain -triamcinolone cream b.i.d. as needed around G-tube site # stage II squamous cell carcinoma tongue -followed by ENT and Dr. Stevenson Oncology at [facility] -currently on weekly carboplatin, Taxol chemo and radiation started on 09/26/2022 -missed radiation appointment on 11/11 which will be rescheduled for next week # chronic cancer pain -continue IV Dilaudid as needed # anxiety -patient had episode of anxiety attack at home -IV Ativan as needed # oral thrush -nystatin swishes Code status is Full code. DVT prophylaxis with lovenox. Proxy is daughter Patricia. I have reviewed home meds and used all available resources to reconcile the home meds. Dispo: Pending MBS results and improvement in PNA. Quality VTE Deep Vein Thrombosis/Pulmonary Embolism Present on Admission: No
--- NOTE | 2022-11-12 10:25 | SLP.IPNOTE ---
Per rounds, the pt requires an MBSS to plan next steps. An MBSS cannot be performed over the weekend; should be completed with priority on Monday if possible.
[2022-11-12] MEDS: CHLORHEXIDINE GLUCONATE 15 ML CUP PO (10:31)
[2022-11-12] MEDS: NYSTATIN SUSP 500,000 UNIT/5 ML UDC 500000 UNIT PO ×3 (10:31→17:45)
[2022-11-12] MEDS: cefTRIAXone 1,000 MG in SODIUM CHLORIDE 0.9% 100 ML 200 MG IV (11:28)
[2022-11-12] MEDS: LACTULOSE 20 GM/30 ML SOLUTION PO (11:28)
--- NOTE | 2022-11-12 11:38 | CM.DANOTE ---
DCP: Case received, EMR reviewed and met with patient. Spouse, Maria De Jesus, and daughter, Chayito, were in the room. Introduced self and role. Was able to obtain information regarding patient's baseline activity status prior to admission. DCP assessment completed with information currently available. Patient is a 76 year old male who admitted yesterday morning to the care of the hospitalist team. PCP: Dr. Eric. Payer: confirmed: Medicare. Patient came to the hospital via private vehicle secondary to complaints of a choking episode, as well as elevated blood pressure. Notes also indicated complaints of racing heart, and anxiety. 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 Patient has a G tube for receiving food and hydration. Patient had recent visit with ENT and noted improvement of mass, getting occasional liquid down orally. ER notes indicated that they were unable to transfer patient to [facility] due to capacity. Patient also has a speech therapy at [facility], as well as social work specialist, according to daughter. Patient holds diagnosis of right lower lobe pneumonia with possible empyema, concerning for aspiration. Will also work with speech here in the hospital. Met briefly with patient, daughter, and spouse at bedside. Patient sitting up in bed, not engaging in conversation. Confirmed that they all reside in the same home in [place]. Daughter, Chayito, is the main caregiver, and resides with spouse, Maria De Jesus. Confirmed that patient uses a FWW occasionally, stated, he is active, has walked daily. Patient does go to [facility] for oncology, speech, and social work specialist. P: DCP to continue to follow. Patient will be treated here for pneumonia, and will work with speech. Patient may be getting a barium swallow as well, most likely can't occur until Monday. Chelsea Benitez RN/Commercial Counsel Discharge Planning/Care Management CM Discharge Assessment Start: 11/12/22 11:36 Freq: Status: Active Protocol: Document 11/12/22 11:36 (Rec: 11/12/22 11:38 [id number]) Discharge Planning Assessment Assigned Card Lacer Jacquard Chelsea Benitez RN/Commercial Counsel Advance Directives? Yes Advance Directives on File No History Provided By Patient,Family Member,Medical Record Prior Living Arrangements House Comment DAUGHTER IS CAREGIVER Household Members spouse,children Type of transporation used prior to Relies on Others admit Independent with ADL's Yes Is patient alert and oriented? Yes Needs Assistance With Meal Prep,Managing Medications ,Home Chores / Shopping Caregiver for Another No DME Already Rented / Owned FWW / Walker Barriers to Discharge No Comment Has supportive family at home. Discharge Plan Home Transportation Arrangement Family Referrals Initiated None needed Whiteboard Updated in Patient Room with Yes name and ext. # of Card Lacer Jacquard Review Status In Process Next Review Type Continued Stay Review
[2022-11-12 12:00] VITALS: BP 133/39; PULSE 105; RESP 17; TEMP 36.6; O2SAT 99
[2022-11-12] MEDS: HYDROMORPHONE 0.5 MG INJ IV ×3 (12:21→21:35)
[2022-11-12] MEDS: AZITHROMYCIN 500 MG in DEXTROSE 5% IN WATER 250 ML 250 MG IV (14:10)
[2022-11-12] MEDS: ACETAMINOPHEN SUSP 650 MG/20.3 ML UDC TUBE ×2 (14:22→23:11)
[2022-11-12] MEDS: LORazepam 2 MG/ML INJ 0.5 MG IV (23:17)
[2022-11-12 23:46] VITALS: BP 135/50; PULSE 85; RESP 20; TEMP 37.4; O2SAT 99
[2022-11-13] VITALS (7 sets, daily range): BP systolic 119–142; BP diastolic 54–68; PULSE 84–114; RESP 17–22; TEMP 36.3–38.6; O2SAT 95–100
[2022-11-13] MEDS: metroNIDAZOLE 500 MG/100 ML PIGGYBACK 100 MG IV ×3 (03:58→18:49)
[2022-11-13 05:09] LABS: Add Manual Diff / Slide Review NO; Basophils Absolute Auto 0 /uL (0-100); Basophils Percent Auto 0.3 % (0-2); Eosinophils Absolute Auto 100 /uL (0-450); Eosinophils Percent Auto 2.1 % (2-4); Hematocrit 23.9 % (41-53); Lymphocytes Absolute Auto 300 /uL (1100-4500); Lymphocytes Percent Auto 3.7 % (25-40); Mean Corpuscular HGB Conc 33.6 % (30-36); Mean Corpuscular Hemoglobin 29.8 PG (26-34); Mean Corpuscular Volume 88.6 fL (80-100); Monocytes Absolute Auto 600 /uL (0-900); Monocytes Percent Auto 8.6 % (3-14); Neutrophils Absolute Auto 5900 /uL (1500-7000); Neutrophils Percent Auto 85.3 % (50-75); Platelet Count 334 X10^3/uL (150-400); Red Blood Cell Count 2.69 X10^6/uL (4.5-5.9); Red Cell Distribution Width 15.9 % (11.6-14.8); White Blood Cell Count 6.9 X10^3/uL (4.5-11.0)
[2022-11-13] MEDS: ACETAMINOPHEN SUSP 650 MG/20.3 ML UDC TUBE ×2 (05:15→20:21)
[2022-11-13 05:19] LABS: BUN Creatinine Ratio 36.4 (6-22); Blood Urea Nitrogen 16 mg/dL (9-20); Calcium 8.7 mg/dL (8.4-10.2); Carbon Dioxide 29 mmol/L (22-32); Chloride 104 mmol/L (98-107); Estimated Glomerular Filt Rate > 60 mL/min (>60); Glucose 97 mg/dL (80-110); HEMOLYSIS < 15 (0-50); Potassium 3.9 mmol/L (3.4-5.1); Sodium 137 mmol/L (137-145)
[2022-11-13 05:37] LABS: Procalcitonin 2.43 ng/mL (<0.5)
[2022-11-13] MEDS: LORazepam 2 MG/ML INJ 0.5 MG IV ×2 (05:55→15:48)
[2022-11-13] MEDS: HYDROMORPHONE 0.5 MG INJ IV ×4 (05:55→23:29)
--- NOTE | 2022-11-13 07:30 | PM.PN.1 ---
Subjective Subjective Interval history: Patient in more pain today. Family wanting to restart IVF. Awaiting MBS tomorrow. Exam Vital Signs (past 8 hours): - 11/12/22 23:46 11/13/22 05:03 Temperature 99.4 F 97.7 F Pulse Rate 85 86 Respiratory Rate 20 20 Blood Pressure 135/50 L 135/54 L Pulse Oximetry 99 100 Oxygen Flow Rate 0 0 Oxygen Delivery Method Room Air Oxygen Flow Rate 0 Narrative Exam Narrative: GEN: ill-appearing, cachectic, doesn't open eyes, wet gurgly cough HEENT: moist mucous membranes, PERRL, coughing lots of secretions NECK: trachea midline, no JVD CV: regular rate and rhythm, no murmurs PULM: coarse breath sounds bilaterally ABD: soft, nontender, nondistended, no organomegaly EXT: warm and well perfused with no edema NEURO: awake, oriented, no focal deficits Objective Labs 11/13/22 04:50 11/13/22 04:50 Labs: Laboratory Results - last 24 hr 11/13/22 11/13/22 11/13/22 04:50 04:50 04:50 WBC 6.9 RBC 2.69 L Hgb 8.0 L Hct 23.9 L MCV 88.6 MCH 29.8 MCHC 33.6 RDW 15.9 H Plt Count 334 Neut % (Auto) 85.3 H Lymph % (Auto) 3.7 L [place] % (Auto) 8.6 Eos % (Auto) 2.1 Baso % (Auto) 0.3 Neut # (Auto) 5900 Lymph # (Auto) 300 L [place] # (Auto) 600 Eos # (Auto) 100 Baso # (Auto) 0 Sodium 137 Potassium 3.9 Chloride 104 Carbon Dioxide 29 BUN 16 Creatinine 0.44 L Estimated GFR > 60 BUN/Creatinine Ratio 36.4 H Glucose 97 Calcium 8.7 Procalcitonin 2.43 H PFSH Medical History Aspiration into airway Dysphagia History of traumatic injury of head Tongue neoplasm Weight loss Social History details: (Maria De Jesus), daughter Chayito, 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 household members: spouse and children Smoking Status: Former smoker alcohol intake: never Assessment & Plan Assessment & Plan narrative: # right lower lobe pneumonia, with possible empyema -concerning for aspiration with prior records showing history of dysphagia -CTPA with RLL and RML infiltrates, loculated R pleural effusion -Rocephin, azithromycin and flagyl ordered -speech therapy consulted as below due to likely aspirating -sputum culture pending -if not improving, may need chest tube for empyema # dysphagia with chronic G-tube in place -patient apparently sips small amounts of liquids and working with SAFETY NET MAKER at [facility] -continue tube feeds via G-tube, keep NPO -patient self-suctioning secretions on his own -dietary consulted -speech consult as above and MBS ordered for 10/2 -daily chlorhexidine mouthwashes -check mouthwash as needed for throat pain -triamcinolone cream b.i.d. as needed around G-tube site -IVF as patient's daughter insists it helps with thinning secretions # stage II squamous cell carcinoma tongue -followed by Dr. Hu ENT, Dr. Stevenson Oncology and Dr. Brown rad-onc at [facility] -currently on weekly carboplatin, Taxol chemo and radiation started on 09/26/2022 -missed radiation appointment on 11/11 which will be rescheduled for next week # chronic cancer pain -continue IV Dilaudid as needed # anxiety -patient had episode of anxiety attack at home -IV Ativan as needed # oral thrush -nystatin swishes Code status is Full code. DVT prophylaxis with lovenox. Proxy is daughter Patricia. I have reviewed home meds and used all available resources to reconcile the home meds. Dispo: Pending MBS results and improvement in PNA. Patient appears to be hospice candidate, but he nor family ready for this conversation. Quality VTE Deep Vein Thrombosis/Pulmonary Embolism Present on Admission: No
[2022-11-13] MEDS: CHLORHEXIDINE GLUCONATE 15 ML CUP PO (08:50)
[2022-11-13] MEDS: NYSTATIN SUSP 500,000 UNIT/5 ML UDC 500000 UNIT PO ×3 (08:51→20:21)
[2022-11-13] MEDS: MAG HYDROX MM (09:06)
[2022-11-13] MEDS: ALUMINUM MM (09:06)
[2022-11-13] MEDS: [UNRECOGNIZED DRUG - OTHER] MM (09:06)
[2022-11-13] MEDS: LIDOCAINE VISCOUS 2% MM (09:06)
[2022-11-13] MEDS: cefTRIAXone 1,000 MG in SODIUM CHLORIDE 0.9% 100 ML 200 MG IV (10:05)
--- NOTE | 2022-11-13 12:11 | PC.NURSE ---
Assumed patient care. Daughter and at bedside. Conversations had about plan of care and expectations of hospital stay and care while admitted. Suction canister changed, discussed plans for medications, tube feeds and pain med schedules. Daughter expresses wishes to do all tubes feedings per their home sched. and states she has been trained to perform them. Hospital has agreed to allow daughterNely, to do so. Patient is NPO but is taking in ice chips and using mouth swab. Suction set up at bedside. Patient is using on own when needed. L AC running anti bx, patient has PORT but is not accesses per the patient/family's request to leave alone. Call light with in reach, patient aware to call with any needs. Daughter has stepped out of room but Maria De Jesus remains at bedside.
[2022-11-13] MEDS: AZITHROMYCIN 500 MG in DEXTROSE 5% IN WATER 250 ML 250 MG IV (13:19)
--- NOTE | 2022-11-13 15:30 | CM.DPC ---
DCP Continued: MANAGER PROVIDER RELATIONS reviewed EMR. Per provider, barium swallow scheduled for Monday. Likely d/c after a couple of days. MANAGER PROVIDER RELATIONS entered room and introduced self and role. Accompanied by spouse and daughter, Chayito. Chayito was primary lead in d/c planning conversation but patient appeared to be nodding along to what she was saying. Dtr claims home when stable safe plan. Dtr reports working with SW at [facility] and [place] for additional resources. Dtr reports interested in caregiver training/being paid to be his caregiver. MANAGER PROVIDER RELATIONS attempted to explain the [facility] program but daughter insisted that wasn't it and there was another program but couldn't remember the name. MANAGER PROVIDER RELATIONS gave Dtr ASHLEY informational resources and Senior Resources booklet for more home caregiver information for patient. Plan: home with family when medically stable. CM Team will continue to follow as needed for additional resource information. JUS Cuello
[2022-11-13] MEDS: SODIUM CHLORIDE 0.9% 1,000 ML 100 ML IV (15:59)
[2022-11-13] MEDS: KETOROLAC 30 MG/ML VIAL 15 MG IV (23:17)
[2022-11-14] VITALS (9 sets, daily range): BP systolic 120–139; BP diastolic 57–66; PULSE 79–91; RESP 17–24; TEMP 36.4–38.8; O2SAT 95–100
[2022-11-14] MEDS: metroNIDAZOLE 500 MG/100 ML PIGGYBACK 100 MG IV ×3 (02:58→18:25)
[2022-11-14 05:46] LABS: Add Manual Diff / Slide Review NO; Basophils Absolute Auto 0 /uL (0-100); Basophils Percent Auto 0.1 % (0-2); Eosinophils Absolute Auto 100 /uL (0-450); Eosinophils Percent Auto 1.7 % (2-4); Hematocrit 25.1 % (41-53); Hemoglobin 8.2 g/dL (13.5-17.5); Lymphocytes Absolute Auto 400 /uL (1100-4500); Lymphocytes Percent Auto 5.6 % (25-40); Mean Corpuscular HGB Conc 32.7 % (30-36); Mean Corpuscular Hemoglobin 29.2 PG (26-34); Mean Corpuscular Volume 89.2 fL (80-100); Monocytes Absolute Auto 800 /uL (0-900); Monocytes Percent Auto 10.6 % (3-14); Neutrophils Absolute Auto 6200 /uL (1500-7000); Platelet Count 356 X10^3/uL (150-400); Red Blood Cell Count 2.81 X10^6/uL (4.5-5.9); Red Cell Distribution Width 16.2 % (11.6-14.8); White Blood Cell Count 7.6 X10^3/uL (4.5-11.0)
[2022-11-14 06:00] LABS: BUN Creatinine Ratio 37.7 (6-22); Blood Urea Nitrogen 20 mg/dL (9-20); Calcium 8.4 mg/dL (8.4-10.2); Carbon Dioxide 27 mmol/L (22-32); Chloride 104 mmol/L (98-107); Estimated Glomerular Filt Rate > 60 mL/min (>60); Glucose 99 mg/dL (80-110); HEMOLYSIS < 15 (0-50); Potassium 3.9 mmol/L (3.4-5.1); Sodium 136 mmol/L (137-145)
--- NOTE | 2022-11-14 06:00 | DI.RAD.S_ITS ---
PROCEDURE: FL BARIUM SWALLOW W SPEECH INDICATIONS: possible aspiration COMPARISON: None. TECHNIQUE: Examination was conducted in conjunction with speech pathology per standard protocol. In the lateral projection, filming was performed of the patient swallowing. AP projection filming may also be performed with patient swallowing. COMPARISON: FINDINGS: Function: The oral preparatory phase appears normal, with proper containment. On all proper consistencies there was laryngotracheal penetration and aspiration followed by coughing. IMPRESSION: Laryngeal tracheal penetration and aspiration with all proper consistencies. Please see speech path note for details Dictated by: Mikhail Lama M.D. on 11/14/2022 at 16:11 Approved by: Mikhail Lama M.D. on 11/14/2022 at 16:12
[2022-11-14 06:16] LABS: Procalcitonin 1.96 ng/mL (<0.5)
[2022-11-14] MEDS: SODIUM CHLORIDE 0.9% 1,000 ML 84 ML IV ×2 (06:18→19:37)
--- NOTE | 2022-11-14 06:50 | PC.NURSE ---
Pt continues to have difficulty managing his own secretions and needing suctioning frequently. Daughter Chayito provides all the patients care including suctioning, hygiene, peg care along with tube feeding. Daughter c/o noticing blood tinge secretions in the peg tubing. No bed alarm at the moment per daughter request. They have been using call light appropriately. Pt developed a fever during midnight was given tylenol with no relief and temp up to 101.4. Dr. De Los Santos notified and now patient has order for 15 mg of toradol q 6 hours as needed for pain/fever. Temp back down to 98.7.
[2022-11-14] MEDS: HYDROMORPHONE 0.5 MG INJ IV ×4 (07:52→22:16)
[2022-11-14] MEDS: cefTRIAXone 1,000 MG in SODIUM CHLORIDE 0.9% 100 ML 200 MG IV (10:33)
[2022-11-14] MEDS: NYSTATIN SUSP 500,000 UNIT/5 ML UDC 500000 UNIT PO ×3 (10:39→18:24)
--- NOTE | 2022-11-14 13:25 | PC.NURSE ---
Patient picked up and taken to MBS test.
[2022-11-14] MEDS: [UNRECOGNIZED DRUG - OTHER] MM (15:04)
[2022-11-14] MEDS: ALUMINUM MM (15:04)
[2022-11-14] MEDS: LIDOCAINE VISCOUS 2% MM (15:04)
[2022-11-14] MEDS: MAG HYDROX MM (15:04)
[2022-11-14] MEDS: ACETAMINOPHEN SUSP 650 MG/20.3 ML UDC TUBE (15:14)
[2022-11-14] MEDS: KETOROLAC 30 MG/ML VIAL 15 MG IV (15:52)
--- NOTE | 2022-11-14 16:17 | ST.SWALLOW ---
Visit Care Team Role Provider Type Shady Eric MD Primary Care Provider Physician Specialty: Internal Medicine Address: [address] [place] [address] Email: [email or web address] DO Emergency Provider Physician Specialty: Emergency Medicine Address: [address] [place] [address], [id number] Email: [email or web address] Warner Ingram DO Admit Provider Physician Attending Provider Referring Provider Specialty: Internal Medicine Address: [address] [place] [address] Email: [email or web address] Modified Barium Swallow Study B2B SALES PROFESSIONAL Modified Barium Swallow Study Start: 11/14/22 14:41 Freq: Status: Active Protocol: Document 11/14/22 14:41 LNK (Rec: 11/14/22 16:17 [id number]) Modified Barium Swallow Study Total Time Visit Start Time 13:30 Visit Stop Time 14:30 Total Visit Minutes [address] Ingram Reason for Referral PNA/dysphagia Setting Setting Acute Care Patient Information Identification Type Name,Date of Patient History 76 year old male admitted for pneumonia 11/11/22. Pt is currently being treated for tongue cancer and has g-tube in place. Pt is receiving ST at [facility] for swallowing therapy. Pt is receiving radiation therapy for cancer. Has two more sessions left, per daughter. According to pt's daughter, PO intake in small amounts has been started at home with ST guidance. Subjective Observations Pt was brought to the fluoroscopy chair from his room. Pt appeared to be tired. Pt's daughter and were in attendance. Very supportive family, very attentive. Daughter is primary payroll benefits administrator. Pt was coughing up copious amounts of thick secretions before and during the assessment. Pt spit out secretions into Patient Positioning Position View Lateral Imaging Lateral View Textures Administered Trials Presented Mildly Thick Liquid via Spoon (IDDSI 2),Moderately Thick Liquid via Spoon (IDDSI 3) Barium Tablet No The IDDSI Framework Protocol: IDDSI.1 Oral Impairment Source: The Modified Barium Swallow Impairment Profile (MBSImP??) Lip Closure Escape from interlab.space/lat .junct.;no ext. beyond vermilion border Tongue Control During Bolus Hold Cohesive bolus between tongue to palatal seal Bolus Transport/Lingual Motion Delayed initiation of tongue motion Oral Residue Residue collection on oral structures Location Palate,Tongue Initiation of Pharyngeal Swallow No visible initiation at any location Additional Oral Impairment Observations OME indicated reduced ROM and strength of oral structures. Pt is edentulous. He spoke in a whisper with speech 100% intelligible. Velum was reddened and looked sore. Pt indicated that swallowing hurt . Velum ROM appeared to be adequate. Pharyngeal Impairment Source: The Modified Barium Swallow Impairment Profile (MBSImP??) Soft Palate Elevation No bolus between soft palate & pharyngeal wall Laryngeal Elevation Min.sup.move. thyroid cart. w/ min.approx.arytenoids to epiglot.petiole Anterior Hyoid Excursion No anterior movement Epiglottic Movement No inversion Laryngeal Vestibular Closure None; wide column air/contrast in laryngeal vestibule Pharyngoesophageal Segment Opening Partial distention/partial duration; partial obstruction of flow Tongue Base Retraction No visible posterior motion of tongue base Pharyngeal Residue Collection of residue within/ on pharyngeal structures Location Diffuse (>3 areas) Additional Pharyngeal Impairment Pt was instructed in the Observations surper-supraglottic swallow strategy as used in therapy at [facility]. This swallow strategy steps include: hold breath, put trial bous in mouth , swallow hard, immediately cough. Pt was instructed to do this with each trial. Thin, nectar thick and pudding thick liquids were trialed via teaspoon (half-teaspoon sized bolus). All trials resulted in altaf aspiration (PAS7 - Below folds visible tracheal residue despite effort). pt was cued to cough as reflexive cough was weak. Cough was non-productive with contrast observed to penetrate trachea between coughs. Contrast was observed to enter the trachea through the posterior portion of the folds. After four small trials, the pt began coughing and had large emisis. The MBSS was stopped at that point . A/P View The IDDSI Framework Protocol: IDDSI.1 Clinical Impressions Dysphagia Type Oral,Pharyngeal Findings The pt presents with severe oropharyngeal dysphagia characterized by weak oropharyngeal structures, minimal airway protection with altaf aspiration noted with each trial and a weak, non- productive cough. Pt was observed to be fatigued, weak and producing copious thick secretions. Suction was provided when pt was unable to cough out the secretions. The pt's daughter was able to provide support for the him and effectively help him to calm and regain breath control . The patient has two more radiation treatments, per his daughter. It is recommended that the pt remain NPO with swallow therapy to focus on safe swallow of ice chips and/ or water. Pt and family education to continue, while pt is inpt. PO ice chips only or teaspoons of water allowed only to maintain swallow viability. Any ice or water ingestion should follow pt rinsing mouth with mouthwash to reduce oral bacteria. A phone consultation with pt's B2B SALES PROFESSIONAL at [facility] (Susana) followed the MBSS. The results and recommendations were discussed , after which she agreed withthe POC while inpatient here at . Susana will f/u with pt after d/c at [facility]. Recommend that ST continue while at inpatient for Rehabilitation Potential Good Patient Appropriate for Therapy Yes Recommendations Diet Diet Order NPO Comments ice chips or 1/2 teaspoon of water following mouth rinse with mouthwash Aspiration Precautions Recommended Precautions Upright at 90 Degrees,Frequent Rest Periods Treatment Plan Therapy Recommendations Outpatient Speech Therapy Short Term Goals Pt and family education re: tube feeding with ingestion of water/ice as indicated will b provided.
[2022-11-14] MEDS: LORazepam 2 MG/ML INJ 0.5 MG IV (16:26)
--- NOTE | 2022-11-14 18:46 | P.PN_ITS ---
Subjective Subjective Date Patient Seen: 11/14/22 Interval history: MSB showed altaf aspiration. Continues with NPO. Patient feels fatigued but less pain and overall slightly better. Exam Vital Signs (past 8 hours): - 11/14/22 12:00 11/14/22 15:14 11/14/22 16:02 Temperature 99.9 F H 101.9 F H 100.5 F H Pulse Rate 88 Respiratory Rate 24 Blood Pressure 133/63 Pulse Oximetry 97 Oxygen Flow Rate 0 11/14/22 15:10 11/14/22 16:32 Temperature 101.9 F H 99.3 F Pulse Rate 87 Respiratory Rate 24 Blood Pressure 120/57 L Pulse Oximetry 97 Oxygen Flow Rate 0 Oxygen Delivery Method Room Air Oxygen Flow Rate 0 Narrative Exam Narrative: GEN: ill-appearing, cachectic, doesn't open eyes, wet gurgly cough HEENT: moist mucous membranes, PERRL, coughing lots of secretions NECK: trachea midline, no JVD with mild erythema anteriorly EXT: warm and well perfused with no edema NEURO: awake, not speaking much, no focal deficits Objective Labs 11/14/22 05:10 11/14/22 05:10 Labs: Laboratory Results - last 24 hr 11/14/22 11/14/22 11/14/22 05:10 05:10 05:10 WBC 7.6 RBC 2.81 L Hgb 8.2 L Hct 25.1 L MCV 89.2 MCH 29.2 MCHC 32.7 RDW 16.2 H Plt Count 356 Neut % (Auto) 82.0 H Lymph % (Auto) 5.6 L [place] % (Auto) 10.6 Eos % (Auto) 1.7 L Baso % (Auto) 0.1 Neut # (Auto) 6200 Lymph # (Auto) 400 L [place] # (Auto) 800 Eos # (Auto) 100 Baso # (Auto) 0 Sodium 136 L Potassium 3.9 Chloride 104 Carbon Dioxide 27 BUN 20 Creatinine 0.53 L Estimated GFR > 60 BUN/Creatinine Ratio 37.7 H Glucose 99 Calcium 8.4 Procalcitonin 1.96 H PFSH Medical History Aspiration into airway Dysphagia History of traumatic injury of head Tongue neoplasm Weight loss Social History details: (Maria De Jesus), daughter Chayito, 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 household members: spouse and children Smoking Status: Former smoker alcohol intake: never Assessment & Plan Assessment & Plan narrative: # right lower lobe pneumonia, with possible empyema -concerning for aspiration with prior records showing history of dysphagia -CTPA with RLL and RML infiltrates, loculated R pleural effusion -Rocephin, azithromycin and flagyl ordered -speech therapy consulted as below due to likely aspirating -sputum culture pending -if not improving, may need chest tube for empyema # dysphagia with chronic G-tube in place -patient apparently sips small amounts of liquids and working with BELLOWS FILLER at [facility] -continue tube feeds via G-tube, keep NPO -patient self-suctioning secretions on his own -dietary consulted -speech consult as above and MBS ordered for 10/2 -daily chlorhexidine mouthwashes -check mouthwash as needed for throat pain -triamcinolone cream b.i.d. as needed around G-tube site -IVF as patient's daughter insists it helps with thinning secretions # stage II squamous cell carcinoma tongue -followed by Dr. Hu ENT, Dr. Stevenson Oncology and Dr. Brown rad-onc at [facility] -currently on weekly carboplatin, Taxol chemo and radiation started on 09/26/2022 -missed radiation appointment on 11/11 which will be rescheduled for next week # chronic cancer pain -continue IV Dilaudid as needed # anxiety -patient had episode of anxiety attack at home -IV Ativan as needed # oral thrush -nystatin swishes Code status is Full code. DVT prophylaxis with lovenox. Proxy is daughter Patricia. I have reviewed home meds and used all available resources to reconcile the home meds. Dispo: Pending MBS results and improvement in PNA. Patient appears to be hospice candidate, but he nor family ready for this conversation. Quality VTE Deep Vein Thrombosis/Pulmonary Embolism Present on Admission: No
[2022-11-15] MEDS: LORazepam 2 MG/ML INJ 0.5 MG IV ×2 (01:06→12:44)
--- NOTE | 2022-11-15 01:37 | PC.NURSE ---
Per patient's daughter this is the tube feeding they are currently using and they were told by another automation tech nurse that this was being order and that it should have been here by Monday11/14/2022. Daughter states that they normally get their feeding supplies from [facility] and that they will not supply patient with it while he is in the hospital.
[2022-11-15] MEDS: metroNIDAZOLE 500 MG/100 ML PIGGYBACK 100 MG IV ×3 (02:06→18:01)
[2022-11-15] MEDS: KETOROLAC 30 MG/ML VIAL 15 MG IV (02:07)
[2022-11-15] MEDS: HYDROMORPHONE 0.5 MG INJ IV ×4 (04:07→20:01)
[2022-11-15 06:03] LABS: Add Manual Diff / Slide Review NO; Basophils Absolute Auto 0 /uL (0-100); Basophils Percent Auto 0.2 % (0-2); Eosinophils Absolute Auto 100 /uL (0-450); Eosinophils Percent Auto 1.4 % (2-4); Hematocrit 21.9 % (41-53); Hemoglobin 7.4 g/dL (13.5-17.5); Lymphocytes Absolute Auto 300 /uL (1100-4500); Lymphocytes Percent Auto 3.3 % (25-40); Mean Corpuscular HGB Conc 33.8 % (30-36); Mean Corpuscular Volume 88.8 fL (80-100); Monocytes Absolute Auto 700 /uL (0-900); Monocytes Percent Auto 8.3 % (3-14); Neutrophils Absolute Auto 7100 /uL (1500-7000); Neutrophils Percent Auto 86.8 % (50-75); Platelet Count 329 X10^3/uL (150-400); Red Blood Cell Count 2.47 X10^6/uL (4.5-5.9); White Blood Cell Count 8.2 X10^3/uL (4.5-11.0)
[2022-11-15 06:16] LABS: BUN Creatinine Ratio 36.4 (6-22); Blood Urea Nitrogen 16 mg/dL (9-20); Calcium 8.1 mg/dL (8.4-10.2); Carbon Dioxide 27 mmol/L (22-32); Chloride 108 mmol/L (98-107); Estimated Glomerular Filt Rate > 60 mL/min (>60); Glucose 101 mg/dL (80-110); HEMOLYSIS < 15 (0-50); Potassium 4.1 mmol/L (3.4-5.1); Sodium 137 mmol/L (137-145)
[2022-11-15] MEDS: SODIUM CHLORIDE 0.9% 1,000 ML 84 ML IV (06:36)
[2022-11-15 08:00] VITALS: BP 138/64; PULSE 100; RESP 20; O2SAT 98
--- NOTE | 2022-11-15 08:42 | DIET.CONS ---
Addendum entered by Joelle Evans 11/15/22 08:48: RD relayed plan to hospitalist Nataly who agrees with POC. Original Note: Dietary Consultation Note Admission Date: 11/11/2022 10:37 Assessment: On Monday afternoon, RD met with patient, daughter and at bedside. Family prefers to continue providing TF per home routine via PEG tube of Nestle Isosource 1.5 from home, 300-400mL four times per day with 100mL free water flushes. RD reviewed safe feeding practices. Kitchen and nursing can perform feeds and supply similar TF product if desired during hospital stay. Ht: 165.1 cm Wt: 53 kg BMI: 19.4 Last BM: 11/15/22 (11/15/22 07:00) MNA: 6 Augusto Score: 21 Diet: 11/11/22 11:43 NPO Diet Diet Modifications: sips of water ok NPO Type: NPO except for Ice Chips Nutrition Percent Meal Consumed 0% 11/14/22 18:00 Percent Meal Consumed pt npo 11/13/22 14:00 Labs: RBC 2.47 X10^6/uL (4.5-5.9) L 11/15/22 05:53 Hgb 7.4 g/dL (13.5-17.5) L 11/15/22 05:53 Hct 21.9 % (41-53) L 11/15/22 05:53 Creatinine 0.44 mg/dL (0.66-1.25) L 11/15/22 05:53 Lactate 1.1 mmol/L (0.7-2.1) 11/11/22 06:38 Monitoring/Evaluations: monitoring for feeding issues. Electronically Signed by: Joelle Evans 11/15/22 08:43 Clinical Dietitian [address] [address]
--- NOTE | 2022-11-15 09:16 | PC.NURSE ---
Went to start fluconazole, daughter has several concerns and does not want this RN to start any new medication. Listened to concerns, and notified MD. A waiting update to continue with plan of care. Patient is sitting upright in bed, more alert today and able to make needs known. Call light within reach.
[2022-11-15] MEDS: FLUCONAZOLE 100 MG/50 ML PIGGYBACK IV (09:52)
[2022-11-15] MEDS: cefTRIAXone 1,000 MG in SODIUM CHLORIDE 0.9% 100 ML 200 MG IV (10:40)
--- NOTE | 2022-11-15 11:43 | PM.PN.1 ---
Subjective Subjective Date Patient Seen: 11/14/22 Interval history: Patient feels okay today. Daughter states has worsening crusting in his mouth today. Fluids decreased due to declining counts and concern for hypervolemia. With sputum culture growing doroteo, started on fluconazole for possible fungal pneumonia as well, stopped nystatin for now. Exam Vital Signs (past 8 hours): - 11/15/22 08:00 Pulse Rate 100 H Respiratory Rate 20 Blood Pressure 138/64 Pulse Oximetry 98 Oxygen Delivery Method Room Air Oxygen Flow Rate 0 Narrative Exam Narrative: GEN: ill-appearing, cachectic, can open eyes, wet gurgly cough HEENT: moist mucous membranes, PERRL, coughing lots of secretions NECK: trachea midline, no JVD with mild erythema anteriorly EXT: warm and well perfused with no edema NEURO: awake, not speaking much, no focal deficits Objective Labs 11/15/22 05:53 11/15/22 05:53 Labs: Laboratory Results - last 24 hr 11/15/22 11/15/22 05:53 05:53 WBC 8.2 RBC 2.47 L Hgb 7.4 L Hct 21.9 L MCV 88.8 MCH 30.0 MCHC 33.8 RDW 16.0 H Plt Count 329 Neut % (Auto) 86.8 H Lymph % (Auto) 3.3 L Gilliam % (Auto) 8.3 Eos % (Auto) 1.4 L Baso % (Auto) 0.2 Neut # (Auto) 7100 H Lymph # (Auto) 300 L Gilliam # (Auto) 700 Eos # (Auto) 100 Baso # (Auto) 0 Sodium 137 Potassium 4.1 Chloride 108 H Carbon Dioxide 27 BUN 16 Creatinine 0.44 L Estimated GFR > 60 BUN/Creatinine Ratio 36.4 H Glucose 101 Calcium 8.1 L PFSH Medical History Aspiration into airway Dysphagia History of traumatic injury of head Tongue neoplasm Weight loss Social History details: (Maria De Jesus), daughter Chayito, 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 -speech therapy consulted as below due to likely aspirating, continues to aspirate with barium swallow noted yesterday. -sputum culture with doroteo, started on fluconazole for possible fungal pneumonia. Treat with either IV or via PEG for 7 days. # dysphagia with chronic G-tube in place -patient apparently sips small amounts of liquids and working with CHROMIUM PLATER at [facility] -continue tube feeds via G-tube, keep NPO -patient self-suctioning secretions on his own -dietary consulted -speech consult as above and MBS ordered for 11/14 -daily chlorhexidine mouthwashes -check mouthwash as needed for throat pain -triamcinolone cream b.i.d. as needed around G-tube site -IVF as patient's daughter insists it helps with thinning secretions, will reduce today with worsening anemia likely due to dilution. # stage II squamous cell carcinoma tongue -followed by Dr. Hu ENT, Dr. Stevenson Oncology and Dr. Brown rad-onc at [facility] -currently on weekly carboplatin, Taxol chemo and radiation started on 09/26/2022 -missed radiation appointment on 11/11 which will be rescheduled for next week # chronic cancer pain -continue IV Dilaudid as needed # anxiety -patient had episode of anxiety attack at home -IV Ativan as needed # oral thrush -nystatin swishes #anemia, acute - no signs or symptoms of bleeding, likely dilutional. Have decreased fluids with Hg of 7.4 today. Goal >7. Continue to follow daily. Code status is Full code. DVT prophylaxis with lovenox. Proxy is daughter Patricia. I have reviewed home meds and used all available resources to reconcile the home meds. Dispo: Pending MBS results and improvement in PNA. Patient appears to be hospice candidate, but he nor family ready for this conversation. Quality VTE Deep Vein Thrombosis/Pulmonary Embolism Present on Admission: No
--- NOTE | 2022-11-15 12:25 | CM.DPC ---
DCP Continued: HIGH RIGGER reviewed EMR. Per hospitalist in rounds, patient will likely be here until the end of the week. No additional needs from CM team at this time. HIGH RIGGER attempted to speak with patient and daughter. Patient resting and daughter stepped out of room. Daughter is currently main caregiver/leader in d/c planning needs for patient. Plan: likely home with spouse and daughter when medically stable. likely no additional needs at this time. CM team will continue to follow closely. JUS Cuello
[2022-11-15 14:00] VITALS: BP 140/68; PULSE 107; RESP 18; TEMP 37.2; O2SAT 97
--- NOTE | 2022-11-15 16:13 | PC.NURSE ---
Drea from [facility] called to check on anticipated discharge date. She states patient will need to be provided 2 days of tube feedings from hospital upon discharge, and she will need to be notified of discharge to resume their services and ship out his next home tube feeding order. Drea [phone]
[2022-11-15 16:36] VITALS: TEMP 38.6
[2022-11-15] MEDS: ACETAMINOPHEN SUSP 650 MG/20.3 ML UDC TUBE ×2 (16:36→21:07)
--- NOTE | 2022-11-15 17:12 | ST.OPTN ---
Visit Care Team Role Provider Type Shady Eric MD Primary Care Provider Physician Address: [address] [place] [address], [id number] Parker Cuevas DO Emergency Provider Physician Address: [address] [place] [address], [id number] Warner Ingram DO Admit Provider Physician Attending Provider Referring Provider Address: [address] [place] [address], [id number] FIRE CONTROL TECHNICIAN G Treatment Note FIRE CONTROL TECHNICIAN G Treatment Note Start: 11/11/22 16:14 Freq: Status: Active Protocol: Document 11/15/22 16:36 (Rec: 11/15/22 17:12 [id number]) Speech Pathology Treatment Note Session Time Visit Start Time 15:00 Visit Stop Time 15:35 Total Visit Minutes 35 Setting Treatment Setting Acute Care General Information Patient History 76 year old male admitted for pneumonia 11/11/22. Pt is currently being treated for tongue cancer and has g-tube in place. Pt is receiving ST at [facility] for swallowing therapy. Pt is receiving radiation therapy for cancer. Has two more sessions left, per daughter. According to pt's daughter, PO intake in small amounts has been started at home with ST guidance. Assessment Assessment of Improvement ST attempted discussion/ education on findings from MBS both with patient and again later with daughter. Both very upset with the care pt has received overall. Pt verbalized that he was fine prior to being here, but now he's worse than ever, even worse than following radiation /chemo. ST attempted to clarify that he was admitted d /t developing PNA at home, with no effect. Daughter is upset for a variety of reasons , including both that an MBS was completed, and the timing of it in relation to her fathers fatigue, feeding via Gtube and pain med schedule, with the result of her questioning the validitity of the results, and also appears to have misunderstood statements made by FIRE CONTROL TECHNICIAN G who completed the MBS, stating that per the FIRE CONTROL TECHNICIAN G, only the honey thick was going down the wrong way but not the thins or the nectar thick. This clinician attempted to clarify that per the report, aspiration happened during or following all trials, again with min return. This clinician attempted to clarify that in any instance, oral intake at this time should be limited to ice chips and possibly teaspoons of water, following oral care. Daughter in agreement, but then also went on to state that :that is no change from what the FIRE CONTROL TECHNICIAN G they have been working with recommended, and that is all we have ever given, and I have never changed my story on anything This is directly contradicting to what was told to this clinician by the daughter during initial eval : of offering him, not just ice and water, but also milkshakes , ice cream and once cola. This clinician did not attempt to contradict her about the statement. Daughter is very upset by the amount of dilaudid being given and feels he would be better with less, and appeared to view that as more of a causeation for his overall weakness than the PNA. When asked, daughter did state that she knew his PNA was part of the cause. Daughter is also upset about what she feels was a lack of communication re the liquid for feedings being ordered, and the damage to the roof of her father's mouth d/t the suctioning being done too roughly. ST verbalized understanding of their frustration, ST will re- attempt further education as able, but will primarily focus on oral care/ice chip trials going forward. Plan Provided Patient/Caregiver Instruction Questions/Concerns
--- NOTE | 2022-11-15 17:29 | PC.NURSE ---
Patient's daughter Chayito has been staying with patient in room consistently and overnight. She is his primary caregiver at home, and is assisting him with his care here as well. Patient's daughter is using home tube feedings at this time and feeding patient via his G tube on their normal schedule. Patient was notified by ADVERTISING SALES EXECUTIVE of patient's 1600 temperature being mildly elevated (99 degrees), and ADVERTISING SALES EXECUTIVE states that patient's daughter was planning to give him a bed bath and we would recheck afterwards. Patient's temp. further elevated on recheck, tylenol given, and Dr. Dietrich notified. Patient's daughter states her dad did not want a bed bath and instead she was going to assist him into the shower with his FWW. Set up with supplies, assistance from this RN or ADVERTISING SALES EXECUTIVE declined. continue to follow. Bedside mikikuer available for suctioning, patient's daughter has been exclusively assisting patient with this. Patient is able to cough up his secretions (thick cream colored today) and attempt to spit them out and then daughter suctions them out further. Patient's inside of mouth is dry with top covering of creamy dry secretions. Patient's daughter continually assists patient with small sips of water and ice chips to keep his mouth moist and then assists her dad to spit them out or suctions them out.
[2022-11-15 18:03] VITALS: TEMP 37.3
[2022-11-15 19:35] VITALS: BP 139/63; PULSE 99; RESP 18; TEMP 36.9; O2SAT 97
[2022-11-16] MEDS: LORazepam 2 MG/ML INJ 0.5 MG IV ×2 (01:29→22:01)
[2022-11-16] MEDS: HYDROMORPHONE 0.5 MG INJ IV ×3 (01:30→22:36)
[2022-11-16 01:37] VITALS: BP 143/64; PULSE 92; RESP 36; TEMP 36.5; O2SAT 96
[2022-11-16] MEDS: metroNIDAZOLE 500 MG/100 ML PIGGYBACK 100 MG IV ×3 (02:05→18:35)
[2022-11-16] MEDS: SODIUM CHLORIDE 0.9% 1,000 ML 50 ML IV ×2 (02:07→23:24)
[2022-11-16 06:00] VITALS: BP 141/68; RESP 28; TEMP 36.4; O2SAT 94
[2022-11-16 06:04] LABS: Add Manual Diff / Slide Review NO; Basophils Absolute Auto 0 /uL (0-100); Basophils Percent Auto 0.3 % (0-2); Eosinophils Absolute Auto 100 /uL (0-450); Eosinophils Percent Auto 2.2 % (2-4); Hematocrit 22.9 % (41-53); Hemoglobin 7.6 g/dL (13.5-17.5); Lymphocytes Absolute Auto 300 /uL (1100-4500); Lymphocytes Percent Auto 4.3 % (25-40); Mean Corpuscular HGB Conc 33.3 % (30-36); Mean Corpuscular Hemoglobin 29.8 PG (26-34); Mean Corpuscular Volume 89.4 fL (80-100); Monocytes Absolute Auto 700 /uL (0-900); Monocytes Percent Auto 10.6 % (3-14); Neutrophils Absolute Auto 5700 /uL (1500-7000); Neutrophils Percent Auto 82.6 % (50-75); Platelet Count 338 X10^3/uL (150-400); Red Blood Cell Count 2.56 X10^6/uL (4.5-5.9); Red Cell Distribution Width 16.6 % (11.6-14.8); White Blood Cell Count 6.9 X10^3/uL (4.5-11.0)
[2022-11-16 06:12] LABS: BUN Creatinine Ratio 28.2 (6-22); Blood Urea Nitrogen 11 mg/dL (9-20); Calcium 8.3 mg/dL (8.4-10.2); Carbon Dioxide 27 mmol/L (22-32); Chloride 105 mmol/L (98-107); Estimated Glomerular Filt Rate > 60 mL/min (>60); Glucose 98 mg/dL (80-110); HEMOLYSIS < 15 (0-50); Potassium 3.9 mmol/L (3.4-5.1); Sodium 135 mmol/L (137-145)
[2022-11-16 08:24] VITALS: BP 145/61; PULSE 93; RESP 18; TEMP 37.1; O2SAT 97
[2022-11-16] MEDS: FLUCONAZOLE 100 MG/50 ML PIGGYBACK IV (09:05)
--- NOTE | 2022-11-16 10:11 | SLP.IPNOTE ---
MULTIPLE SPINDLE ROUTER OPERATOR (Ana Alexander) attempted dysphagia treatment 11/16/22 at 0945. Pt's daughter in room stated she does not want speech therapy from this facility to work with her father at this time as she is in contact with the pt's MULTIPLE SPINDLE ROUTER OPERATOR at [facility] regarding the pt's plan of care. Pt's daughter further explained she feels that her trust with hospital staff at this facility has been broken due to various incidents including lack of clear communication regarding ordering feedings (via PEG), lack of empathy from nursing and physicians, and feeling that medications being provided are not appropriate. Additionally, she stated that oral suctioning had been too rough, causing sores in the pt's mouth. Upon inspection by MULTIPLE SPINDLE ROUTER OPERATOR, lesions are present along pt's soft palate. Pt's daughter states she does not believe these are caused by radiation, though acknowledges this is believed as a possible cause. Pt's daughter states that due to feeling of mistrust for this facility, as POA she does not want to continue services with speech therapy at this hospital. She states she will continue with same plan of care (ice chips and water sips, strict oral care with suctioning) without the need for ST services at this facility.
[2022-11-16 12:00] VITALS: TEMP 36.9
[2022-11-16 12:07] LABS: Campylobacter Not Detected (Not Detect); Clostridium difficile toxin AB Not Detected (Not Detect); Enteroaggregative E.coli Not Detected (Not Detect); Plesiomonsa shigelloides Not Detected (Not Detect); Salmonella Not Detected (Not Detect); Vibrio Not Detected (Not Detect); Vibrio cholerae Not Detected (Not Detect); Yersinia enterocolitica Not Detected (Not Detect)
[2022-11-16 12:08] LABS: Adenovirus F 40/41 Not Detected (Not Detect); Astrovirus Not Detected (Not Detect); Cryptosporidium Not Detected (Not Detect); Cyclospora cayetanensis Not Detected (Not Detect); Entamoeba histolytica Not Detected (Not Detect); Enteropathogenic E.coli Not Detected (Not Detect); Enterotoxigenic E.coli It/st Not Detected (Not Detect); Giardia lamblia Not Detected (Not Detect); Norovirus GI/GII Not Detected (Not Detect); Rotavirus A Not Detected (Not Detect); Sapovirus Not Detected (Not Detect); Shiga-like toxin-prod E.coli Not Detected (Not Detect); Shigella/Enteroinvasive E.coli Not Detected (Not Detect)
--- NOTE | 2022-11-16 14:19 | PM.PN.1 ---
Subjective Subjective Date Patient Seen: 11/16/22 Interval history: Patient feels okay today. Nurse reported heavy liquid stool, daughter reported it is quite stable and more formed than usual actually. GI panel was negative. Exam Vital Signs (past 8 hours): - 11/16/22 08:24 11/16/22 12:00 Temperature 98.8 F 98.4 F Pulse Rate 93 H Respiratory Rate 18 Blood Pressure 145/61 H Pulse Oximetry 97 Oxygen Delivery Method Room Air Oxygen Flow Rate 0 Narrative Exam Narrative: GEN: ill-appearing, cachectic, can open eyes, wet gurgly cough HEENT: moist mucous membranes, PERRL, coughing lots of secretions NECK: trachea midline, no JVD with mild erythema anteriorly EXT: warm and well perfused with no edema NEURO: awake, not speaking much, no focal deficits Objective Labs 11/16/22 05:45 11/16/22 05:45 Labs: Laboratory Results - last 24 hr 11/16/22 11/16/22 05:45 09:20 WBC 6.9 RBC 2.56 L Hgb 7.6 L Hct 22.9 L MCV 89.4 MCH 29.8 MCHC 33.3 RDW 16.6 H Plt Count 338 Neut % (Auto) 82.6 H Lymph % (Auto) 4.3 L Hodgeman % (Auto) 10.6 Eos % (Auto) 2.2 Baso % (Auto) 0.3 Neut # (Auto) 5700 Lymph # (Auto) 300 L Hodgeman # (Auto) 700 Eos # (Auto) 100 Baso # (Auto) 0 Sodium 135 L Potassium 3.9 Chloride 105 Carbon Dioxide 27 BUN 11 Creatinine 0.39 L Estimated GFR > 60 BUN/Creatinine Ratio 28.2 H Glucose 98 Calcium 8.3 L Stl C. cayetanensis PCR Not detected Stool Rotavirus (PCR) Not detected Stool Adenovirus (PCR) Not detected Stool Astrovirus (PCR) Not detected Stool Cryptosporidium PCR Not detected Stl E.coli Shiga Tox PCR Not detected St Sh/Enteroin Ecoli PCR Not detected Stool E coli O157 PCR Not Reportable Stl Enterotoxigenic E PCR Not detected Stool EPEC (PCR) Not detected Stl E. histolytica PCR Not detected Stool Giardia Lamblia PCR Not detected Stool Sapovirus (PCR) Not detected Stl P. shigelloides PCR Not detected St Y.enterocolitica PCR Not detected Stool Vibrio (PCR) Not detected Stl Vibrio cholerae PCR Not detected Stl Enteroaggr Ecoli PCR Not detected Stl Norovirus GI/GII PCR Not detected Campylobacter (PCR) Not detected C. 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 -speech therapy consulted as below due to likely aspirating, continues to aspirate with barium swallow performed 11/14. -sputum culture with doroteo, started on fluconazole for possible fungal pneumonia. Treat with either IV or via PEG for 7 days. # dysphagia with chronic G-tube in place -patient apparently sips small amounts of liquids and working with MARKETING PROFESSOR at [facility] -continue tube feeds via G-tube, keep NPO -patient self-suctioning secretions on his own -dietary consulted -speech consult as above and MBS ordered for 11/14, which showed altaf aspiration. -daily chlorhexidine mouthwashes -check mouthwash as needed for throat pain -triamcinolone cream b.i.d. as needed around G-tube site -IVF as patient's daughter insists it helps with thinning secretions, will reduce today with worsening anemia likely due to dilution. # stage II squamous cell carcinoma tongue -followed by Dr. Hu ENT, Dr. Stevenson Oncology and Dr. Brown rad-onc at [facility] -currently on weekly carboplatin, Taxol chemo and radiation started on 09/26/2022 -missed radiation appointment on 11/11 which will be rescheduled for next week # chronic cancer pain -continue IV Dilaudid as needed # anxiety -patient had episode of anxiety attack at home -IV Ativan as needed # oral thrush -nystatin swishes #anemia, acute - no signs or symptoms of bleeding, likely dilutional. Have decreased fluids with Hg of 7.4 and stabilized at 7.6 today. Goal >7. Continue to follow daily. Code status is Full code. DVT prophylaxis with lovenox. Proxy is daughter Patricia. I have reviewed home meds and used all available resources to reconcile the home meds. Dispo: Probably home, timing likely 1-3 days depending on improvement. Quality VTE Deep Vein Thrombosis/Pulmonary Embolism Present on Admission: No
[2022-11-16 18:00] VITALS: BP 150/55; PULSE 103; RESP 20; TEMP 36.4; O2SAT 99
[2022-11-16 21:51] VITALS: BP 127/46; PULSE 66; RESP 20; TEMP 36.8; O2SAT 95
[2022-11-17] MEDS: LORazepam 2 MG/ML INJ 0.5 MG IV ×2 (03:43→15:38)
[2022-11-17 03:47] VITALS: BP 135/64; PULSE 89; RESP 16; TEMP 36.7; O2SAT 98
[2022-11-17] MEDS: metroNIDAZOLE 500 MG/100 ML PIGGYBACK 100 MG IV ×3 (03:55→19:30)
[2022-11-17 08:00] VITALS: BP 140/76; PULSE 95; RESP 17; TEMP 36.8; O2SAT 99
[2022-11-17] MEDS: FLUCONAZOLE 100 MG/50 ML PIGGYBACK IV (08:29)
[2022-11-17 14:43] VITALS: BP 140/78; PULSE 98; RESP 17; TEMP 36.7; O2SAT 100
--- NOTE | 2022-11-17 14:48 | PM.PN.1 ---
Subjective Subjective Date Patient Seen: 11/16/22 Interval history: Improving cough, he is doing very well. Able to take a shower and more refreshed. Continuing to have some oral secretions and cough but decreasing. Remains a bit weak but again improving. Exam Vital Signs (past 8 hours): - 11/17/22 08:00 11/17/22 08:29 11/17/22 14:43 Temperature 98.3 F 98.0 F Pulse Rate 95 H 98 H Respiratory Rate 17 17 Blood Pressure 140/76 140/78 Pulse Oximetry 99 100 Oxygen Delivery Method Room Air Oxygen Flow Rate 0 0 Oxygen Delivery Method Room Air Oxygen Flow Rate 0 Narrative Exam Narrative: GEN: ill-appearing, cachectic, can open eyes, wet gurgly cough but improving. HEENT: moist mucous membranes, PERRL, coughing with improved secretions NECK: trachea midline, no JVD with mild erythema anteriorly but also improving. Pulm: coarse breath sounds bilaterally, also improving. No wheezing. CV: RRR no m/r/g. 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 -speech therapy consulted as below due to likely aspirating, continues to aspirate with barium swallow performed 11/14. -sputum culture with doroteo, started on fluconazole for possible fungal pneumonia. Treat with either IV or via PEG for 7 days. # dysphagia with chronic G-tube in place -patient apparently sips small amounts of liquids and working with MEAT SALES AND STORAGE MANAGER at [facility] -continue tube feeds via G-tube, keep NPO -patient self-suctioning secretions on his own -dietary consulted -speech consult as above and MBS ordered for 11/14, which showed altaf aspiration. -daily chlorhexidine mouthwashes -check mouthwash as needed for throat pain -triamcinolone cream b.i.d. as needed around G-tube site -IVF as patient's daughter insists it helps with thinning secretions, will reduce today with worsening anemia likely due to dilution. # stage II squamous cell carcinoma tongue -followed by Dr. Hu ENT, Dr. Stevenson Oncology and Dr. Brown rad-onc at [facility] -currently on weekly carboplatin, Taxol chemo and radiation started on 09/26/2022 -missed radiation appointment on 11/11 which will be rescheduled for next week # chronic cancer pain -continue IV Dilaudid as needed # anxiety -patient had episode of anxiety attack at home -IV Ativan as needed # oral thrush -nystatin swishes #anemia, acute - no signs or symptoms of bleeding, likely dilutional. Have decreased fluids with Hg of 7.4 and stabilized at 7.6 today. Goal >7. Continue to follow daily. Code status is Full code. DVT prophylaxis with lovenox. Proxy is daughter Patricia. I have reviewed home meds and used all available resources to reconcile the home meds. Dispo: Probably home, timing hopeful for tomorrow. Quality VTE Deep Vein Thrombosis/Pulmonary Embolism Present on Admission: No
--- NOTE | 2022-11-17 15:36 | CM.DPNOTE ---
DCP Note Reviewed chart. No DPOA ppk on file. Met w/patient, daughter Chayito and two other family members in room, requested DPOA ppk. Daughter Chayito said she has this at home and will provide. Reviewed DCP, patient did not speak, nods head. Daughter Chayito plans to take patient home tomorrow, denies needs from this CURVE CLEANER. Daughter Chayito expressed many concerns about patient's stay here, provided listening support and asked numerous times whether this CURVE CLEANER could be of help today? Chayito denies needs at this time. Plan: Discharge home w/family to assist, close outpatient follow up. ANABEL
[2022-11-17 18:00] VITALS: BP 148/60; PULSE 99; RESP 17; TEMP 36.8; O2SAT 99
[2022-11-17] MEDS: ACETAMINOPHEN SUSP 650 MG/20.3 ML UDC TUBE (19:52)
[2022-11-17] MEDS: HYDROMORPHONE 0.5 MG INJ IV (21:30)
[2022-11-18] MEDS: SODIUM CHLORIDE 0.9% 1,000 ML 50 ML IV (01:00)
[2022-11-18] MEDS: metroNIDAZOLE 500 MG/100 ML PIGGYBACK 100 MG IV ×2 (03:21→11:54)
[2022-11-18 06:00] VITALS: BP 148/55; PULSE 96; RESP 19; TEMP 36.9; O2SAT 100
[2022-11-18] MEDS: LORazepam 2 MG/ML INJ 0.5 MG IV ×2 (07:44→21:02)
[2022-11-18 07:47] VITALS: BP 140/66; RESP 16; TEMP 36.5; O2SAT 99
[2022-11-18] MEDS: FLUCONAZOLE 100 MG/50 ML PIGGYBACK IV (09:01)
--- NOTE | 2022-11-18 15:20 | P.PN_ITS ---
Subjective Subjective Date Patient Seen: 11/16/22 Interval history: Improving cough, he is doing very well. Continuing to have some oral secretions and cough but decreasing. Remains a bit weak but again improving. Daughter still concerned about his hydration status. Exam Vital Signs (past 8 hours): - 11/18/22 07:47 Temperature 97.7 F Respiratory Rate 16 Blood Pressure 140/66 Pulse Oximetry 99 Oxygen Delivery Method Room Air Oxygen Flow Rate 0 Narrative Exam Narrative: GEN: ill-appearing, cachectic, can open eyes, wet gurgly cough but improving. HEENT: moist mucous membranes, PERRL, coughing with improved secretions NECK: trachea midline, no JVD with mild erythema anteriorly but also improving. Pulm: coarse breath sounds bilaterally, also improving. No wheezing. CV: RRR no m/r/g. 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 -speech therapy consulted as below due to likely aspirating, continues to aspirate with barium swallow performed 11/14. -sputum culture with doroteo, started on fluconazole for possible fungal pneumonia. Treat with either IV or via PEG for 7 days. # dysphagia with chronic G-tube in place -patient apparently sips small amounts of liquids and working with AUDOGRAPH OPERATOR at [facility] -continue tube feeds via G-tube, keep NPO -patient self-suctioning secretions on his own -dietary consulted -speech consult as above and MBS ordered for 11/14, which showed altaf aspiration. -daily chlorhexidine mouthwashes -check mouthwash as needed for throat pain -triamcinolone cream b.i.d. as needed around G-tube site -IVF as patient's daughter insists it helps with thinning secretions, will reduce today with worsening anemia likely due to dilution. # stage II squamous cell carcinoma tongue -followed by Dr. Hu ENT, Dr. Stevenson Oncology and Dr. Brown rad-onc at [facility] -currently on weekly carboplatin, Taxol chemo and radiation started on 09/26/2022 -missed radiation appointment on 11/11 which will be rescheduled for next week # chronic cancer pain -continue IV Dilaudid as needed # anxiety -patient had episode of anxiety attack at home -IV Ativan as needed # oral thrush -nystatin swishes #anemia, acute - no signs or symptoms of bleeding, likely dilutional. Have decreased fluids with Hg of 7.4 and stabilized at 7.6 today. Goal >7. Continue to follow daily. Code status is Full code. DVT prophylaxis with lovenox. Proxy is daughter Patricia. I have reviewed home meds and used all available resources to reconcile the home meds. Dispo: Discharge home, likely tomorrow. Continues on IV fluids today to maintain hydration status. Quality VTE Deep Vein Thrombosis/Pulmonary Embolism Present on Admission: No
[2022-11-18 18:00] VITALS: BP 127/59; PULSE 100; RESP 16; O2SAT 99
[2022-11-18 20:21] VITALS: BP 133/69; PULSE 96; RESP 17; TEMP 36.7; O2SAT 99
[2022-11-18 21:39] VITALS: RESP 20
[2022-11-19] MEDS: SODIUM CHLORIDE 0.9% 1,000 ML 50 ML IV (00:13)
[2022-11-19 05:28] LABS: Add Manual Diff / Slide Review NO; Basophils Absolute Auto 0 /uL (0-100); Basophils Percent Auto 0.5 % (0-2); Eosinophils Absolute Auto 100 /uL (0-450); Eosinophils Percent Auto 2.1 % (2-4); Hematocrit 25.1 % (41-53); Hemoglobin 8.4 g/dL (13.5-17.5); Lymphocytes Absolute Auto 400 /uL (1100-4500); Lymphocytes Percent Auto 6.3 % (25-40); Mean Corpuscular HGB Conc 33.6 % (30-36); Mean Corpuscular Hemoglobin 29.5 PG (26-34); Mean Corpuscular Volume 87.8 fL (80-100); Monocytes Absolute Auto 800 /uL (0-900); Monocytes Percent Auto 13.1 % (3-14); Neutrophils Absolute Auto 4700 /uL (1500-7000); Platelet Count 427 X10^3/uL (150-400); Red Blood Cell Count 2.85 X10^6/uL (4.5-5.9); Red Cell Distribution Width 16.6 % (11.6-14.8)
[2022-11-19 05:38] LABS: BUN Creatinine Ratio 29.3 (6-22); Blood Urea Nitrogen 12 mg/dL (9-20); Calcium 8.7 mg/dL (8.4-10.2); Carbon Dioxide 29 mmol/L (22-32); Chloride 103 mmol/L (98-107); Estimated Glomerular Filt Rate > 60 mL/min (>60); Glucose 100 mg/dL (80-110); HEMOLYSIS 27 (0-50); Potassium 4.2 mmol/L (3.4-5.1); Sodium 136 mmol/L (137-145)
[2022-11-19 06:00] VITALS: BP 129/72; PULSE 98; RESP 18; TEMP 36.8; O2SAT 100
[2022-11-19] MEDS: FLUCONAZOLE 100 MG/50 ML PIGGYBACK IV (08:24)
--- NOTE | 2022-11-19 09:10 | PC.NURSE ---
Addendum entered by Kylie Middleton R.N. 11/19/22 15:13: patient tolerated shower. new PIV placed by AUDRA jimenez. anticipate finish IV bolus from earlier in the day, then patient will d/c home. denies pain/discomfort, declined offer of xanax PRN, as patient stated: lets get it over with. d/c is complete and printed. Original Note: 0900: patient is a/o, voices needs. soft spoken. 1pa ADL assist if needed, as daughter Chayito is rooming in, and provides all cares. she will let us know if there is anything else needed. Lovenox declined. copious amount of sputum and kleenex noted in emesis bag. patient requested ice chips and cold water, this is available at bedside. anticipate d/c home today. daughter has some specific questions for MD. Dr Ingram is notified and will see patient/talk to daughter after rounds. daughter and patient notified of this. call light w/in reach. 0915: NS bolus - 1000mL ordered.
[2022-11-19] MEDS: SODIUM CHLORIDE 0.9% 1,000 ML 1000 ML IV (10:00)
--- NOTE | 2022-11-19 11:56 | P.DS_ITS ---
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 Daughter is providing most of the history as patient is hard to understand with hoarse voice and lots of secretions. She states he has been coughing alot lately and felt like he choked this morning on his secretions. They brought him to the ED due to elevated BP, HR and anxiety about the episode. In the ED found to have RLL pneumonia. Procal 0.37. Normal WBC. CTPA negative for PE but showed chronic R loculated pleural effusion and RLL and RML infiltrates. Patient denies CP, weakness, dizziness, abd pain or diarrhea. Discharge Providers Provider Date of admission: 11/11/22 10:37 Discharge Date: 11/19/22 Primary care physician: Shady Eric MD Consults: 11/11/22 11:41 Consult to Speech Therapy Evaluate & Treat Comment: tongue cancer, aspiration PNA? takes sips liquids Physician Instructions: Evaluate and treat 11/11/22 11:48 Consult to Dietitian, Adult Routine Comment: Reason For Exam: tube feeds, does 4 feeds/day 300-400cc each Discharge provider: Warner Ingram, Summary Hospital Course Discharge Diagnosis: # right lower lobe pneumonia -concerning for aspiration with prior records showing history of dysphagia -CTPA with RLL and RML infiltrates, loculated R pleural effusion but chronic -continue ceftriaxone and metronidazole for treatment of presumed aspiration pneumonia. Finished 5 day course. -speech therapy consulted as below due to likely aspirating, continues to aspirate with barium swallow performed 11/14. -sputum culture with doroteo, started on fluconazole for possible fungal pneumonia. Treated with IV for 5 days. # dysphagia with chronic G-tube in place -patient apparently sips small amounts of liquids and working with [facility] at [facility] -continue tube feeds via G-tube, keep NPO -patient self-suctioning secretions on his own -dietary consulted -speech consult as above and MBS ordered for 11/14, which showed altaf aspiration. -daily chlorhexidine mouthwashes -check mouthwash as needed for throat pain -triamcinolone cream b.i.d. as needed around G-tube site -IVF as patient's daughter insists it helps with thinning secretions, will reduce today with worsening anemia likely due to dilution. -pt will f/u with her [facility] next week as outpatient -can resume prior tube feed orders at [facility] # stage II squamous cell carcinoma tongue -followed by Dr. Hu ENT, Dr. Stevenson Oncology and Dr. Brown rad-onc at [facility] -currently on weekly carboplatin, Taxol chemo and radiation started on 09/26/2022 -missed radiation appointment on 11/11 which is rescheduled for this week # chronic cancer pain -continue IV Ativan as needed -given script for liquid ativan SL BID PRN on discharge # anxiety -patient had episode of anxiety attack at home -IV Ativan as needed # oral thrush -nystatin swishes #anemia, acute - no signs or symptoms of bleeding, likely dilutional. Have decreased fluids with Hg of 7.4 and now at 8.5. Goal >7. Continue to follow daily. Hospital Course: Admitted for PNA from aspiration PNA. MBS showed altaf aspiration. Treated for 5 days of abx and antifungals due to sputum culture growing doroteo parapsilosis. Patient improved and discharged home to resume tube feeds via [facility]. Will f/up with rad-onc and [facility] this week. Given script for SL ativan liquid for anxiety as this helped him quite a bit. Exam Vital Signs (past 8 hours): - 11/19/22 06:00 Temperature 98.3 F Pulse Rate 98 H Respiratory Rate 18 Blood Pressure 129/72 Pulse Oximetry 100 Oxygen Delivery Method Room Air Oxygen Flow Rate 0 Narrative Exam Narrative: GEN: ill-appearing, cachectic, more interactive now HEENT: moist mucous membranes, PERRL, coughing with improved secretions NECK: trachea midline, no JVD with mild erythema anteriorly but also improving. Pulm: coarse breath sounds improving. No wheezing. CV: RRR no m/r/g. EXT: warm and well perfused with no edema NEURO: awake, not speaking much, no focal deficits Objective Labs 11/19/22 04:50 11/19/22 04:50 Labs: Laboratory Results - last 24 hr 11/19/22 04:50 WBC 6.0 RBC 2.85 L Hgb 8.4 L Hct 25.1 L MCV 87.8 MCH 29.5 MCHC 33.6 RDW 16.6 H Plt Count 427 H Neut % (Auto) 78.0 H Lymph % (Auto) 6.3 L [place] % (Auto) 13.1 Eos % (Auto) 2.1 Baso % (Auto) 0.5 Neut # (Auto) 4700 Lymph # (Auto) 400 L [place] # (Auto) 800 Eos # (Auto) 100 Baso # (Auto) 0 Sodium 136 L Potassium 4.2 Chloride 103 Carbon Dioxide 29 BUN 12 Creatinine 0.41 L Estimated GFR > 60 BUN/Creatinine Ratio 29.3 H Glucose 100 Calcium 8.7 PFSH Medical History Aspiration into airway Dysphagia History of traumatic injury of head Tongue neoplasm Weight loss Social History details: (Maria De Jesus), daughter Chayito, 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 if any shortness of breath, fever >101.9 or cough not relieved by medicines. see PCP w/in 7-10 days of d/c from [facility]. it was a pleasure to meet you, sir..and your family! take care and have a great rest of your day! Discharge orders & Medications Prescriptions: New Alprazolam Intensol 1 mg/mL concentrate 0.5 mg PO BID PRN (Reason: anxiety) Qty: 30 0RF Continued Magic Mouth wash 10 ml PO Q4-6H MDD 60 ml PRN (Reason: sever throat pain) Qty: 120 2RF Rx Instructions: diphenhyramine elixor 12.5 mg/5ml, 1 part maalox and 1 part 2% viscous lidocane. swish, gargle, spit or swallow 10 ml every 4-6 hours as needed. lactulose 10 gram/15 mL (15 mL) solution 20 g PO BID PRN (Reason: constipation) Qty: 600 0RF (DME) nebulizer and compressor [InnoSpire Essence] Device See Rx Instructions .ROUTE .MEDSUPPLY Qty: 1 Patient Comments: USE FOUR TIMES DAILY Rx Instructions: As directed ipratropium-albuterol 0.5 mg-3 mg(2.5 mg base)/3 mL solution for nebulization 3 ml inhalation Q6H Patient Comments: INHALE CONTENTS OF 1 VIAL BY MOUTH AND INTO THE LUNGS EVERY 6 HOURS chlorhexidine gluconate 0.12 % mouthwash 15 ml buccal DAILY nystatin 100,000 unit/mL suspension 5 ml PO 4XD triamcinolone acetonide 0.1 % ointment 1 applic topical BID PRN (Reason: Rash) hydromorphone 1 mg/mL liquid 0.5 mg feeding tube Q4H PRN (Reason: severe pain) polyethylene glycol 3350 [Miralax] 17 gram/dose powder 17 g PO DAILY Qty: 238 0RF Follow up/Referrals: Shady Eric MD [Primary Care Provider] - 2 Weeks Visit Report/Discharge Packet Instructions: Get Moving to Prevent Blood Clots Stand Alone Forms: Patient Portal/API, Stroke Signs & Symptoms Discharge Data Primary Care Provider: Shady Eric V Discharges patient from system. Discharge Date/Time: 11/19/22 16:30 Quality VTE Deep Vein Thrombosis/Pulmonary Embolism Present on Admission: No
--- NOTE | 2022-11-19 12:27 | CM.DPC ---
DCP Continued: Per provider in rounds, patient to d/c home today with family support. LAY OUT HELPER entered room and introduced self and role. Patient accompanied by daughter and son at bedside. Patient appeared excited to d/c home. Patient was about to shower and then family was going to take him home. Family reports no needs from CM team at this time. LAY OUT HELPER provided copy of IMM paperwork to patient. Plan: d/c home with family today transport in POV. CM team will continue to follow as needed. No needs JUS Cuello
[2022-11-19] MEDS: LORazepam 2 MG/ML INJ 0.5 MG IV (16:02)
[2022-11-19 16:14] VITALS: BP 124/62; PULSE 104; RESP 16; TEMP 36.4; O2SAT 98
== END 2022-11-19 16:30 | disposition home or self-care (01) | DRG 179 ==
LOC: ED 04:03 → AC 10:38
PROVIDERS: Internal Medicine; Admitting Provider Student in an Organized Health Care Education/Training Program; Emergency Provider Emergency Medicine; PCP Internal Medicine; Referring Provider Student in an Organized Health Care Education/Training Program; Visit Provider Student in an Organized Health Care Education/Training Program
DX: J69.0 Pneumonitis due to inhalation of food and vomit (principal); C02.9 Malignant neoplasm of tongue, unspecified; R13.19 Other dysphagia; G89.3 Neoplasm related pain (acute) (chronic); F41.9 Anxiety disorder, unspecified; B37.9 Candidiasis, unspecified; B96.89 Other specified bacterial agents as the cause of diseases classified elsewhere; Z87.891 Personal history of nicotine dependence; Z93.1 Gastrostomy status
CPT/HCPCS: 0241U; 36415; 71045; 71275; 74230; 80048; 80053; 81003; 82550; 83605; 83735; 84145; 84484; 85025; 85379; 87040; 87070; 87077; 87205; 87507; 92526; 92610; 92611; 96365; 96375; 99284; J0696; J1170; J1450; J1885; J1956; J2060; Q9967

== ENCOUNTER → 2023-11-15 10:13 | Outpatient (CLI) | payer MEDICARE, SELFPAY ==
[2022-11-28 09:07] VITALS: BMI 19.4
--- NOTE | 2023-11-15 10:15 | DI.RAD.S_ITS ---
PROCEDURE: XR CHEST 2V INDICATIONS: cough, dysphagia, abnormal weight loss TECHNIQUE: 2 views of the chest were acquired. COMPARISON: [facility], CR, XR CHEST 1V, 11/11/2022, 4:15. [facility], CT, CT CHEST WITH CONTRAST, 05/31/2023, 8:40. FINDINGS: Surgical changes and devices: None. Lungs and pleura: Similar appearance of small right pleural effusion with adjacent atelectasis/scarring. Mediastinum: Mediastinal contours are normal. Heart size is normal. Bones and chest wall: No suspicious bony abnormalities. Soft tissues appear unremarkable. IMPRESSION: Similar appearance of small right pleural effusion with adjacent atelectasis/scarring. If indicated, consider CT chest for further evaluation. Dictated by: Mansoor Mora M.D. on 11/15/2023 at 11:23 Approved by: Mansoor Mora M.D. on 11/15/2023 at 11:25
[2023-11-15 11:30] LABS: Hematocrit 37.7 % (41-53); Hemoglobin 12.5 g/dL (13.5-17.5); Mean Corpuscular HGB Conc 33.3 % (30-36); Mean Corpuscular Hemoglobin 29.7 PG (26-34); Mean Corpuscular Volume 89.4 fL (80-100); Platelet Count 252 X10^3/uL (150-400); Red Blood Cell Count 4.22 X10^6/uL (4.5-5.9); Red Cell Distribution Width 13.6 % (11.6-14.8); White Blood Cell Count 8.9 X10^3/uL (4.5-11.0)
[2023-11-15 11:57] LABS: Alanine Aminotransferase 20 IU/L (<50); Alkaline Phosphatase 81 U/L (38-126); Aspartate Aminotransferase 29 IU/L (17-59); BUN Creatinine Ratio 22.4 (6-22); Bilirubin Total 0.5 mg/dL (0.2-1.3); Blood Urea Nitrogen 15 mg/dL (9-20); Calcium 9.4 mg/dL (8.4-10.2); Carbon Dioxide 32 mmol/L (22-32); Chloride 97 mmol/L (98-107); Estimated Glomerular Filt Rate > 60 mL/min (>60); Globulin 4.1 g/dL (1.7-4.1); Glucose 100 mg/dL (80-110); HEMOLYSIS < 15 (0-50); Potassium 4.6 mmol/L (3.4-5.1); Sodium 134 mmol/L (137-145); Total Protein 8.1 g/dL (6.3-8.2)
[2023-11-15 12:32] LABS: TSH w/ Reflex to FT4 0.89 uIU/mL (0.47-4.68)
== END ==
PROVIDERS: PCP Internal Medicine; Referring Provider Internal Medicine; Visit Provider Internal Medicine
DX: R13.10 Dysphagia, unspecified (principal); J90 Pleural effusion, not elsewhere classified; R63.4 Abnormal weight loss; F33.9 Major depressive disorder, recurrent, unspecified
CPT/HCPCS: 36415; 71046; 80053; 84443; 85027

== ENCOUNTER 2023-11-26 16:37 | Inpatient (IN) | payer MEDICARE, SELFPAY ==
[2022-11-28 09:07] VITALS: BMI 19.4
[2023-11-26] VITALS (14 sets, daily range): BP systolic 120–174; BP diastolic 59–74; PULSE 107–127; RESP 20–42; TEMP 37.7–39.2; O2SAT 90–97; BMI 19.8; BMI 20.3
--- NOTE | 2023-11-26 16:56 | DI.RAD.S_ITS ---
PROCEDURE: XR CHEST 1V INDICATIONS: suspected sepsis TECHNIQUE: One view of the chest was acquired. COMPARISON: [facility], CR, XR CHEST 2V, 11/15/2023, 9:24. FINDINGS: Surgical changes and devices: None. Lungs and pleura: Developing poorly defined opacities can be seen at the lung bases, right worse than left. There is a small right-sided pleural effusion. No pneumothorax is seen is seen on this semiupright study. Mediastinum: Mediastinal contours appear normal. Heart size is normal. Atherosclerotic calcification of the aortic arch is noted. Bones and chest wall: No suspicious bony lesions. Age-appropriate bony degenerative changes are seen. Overlying soft tissues appear unremarkable. IMPRESSION: Developing opacity seen at the lung bases. Infiltrates are suspected, although differential diagnosis includes atelectasis. Persistent small right-sided pleural effusion. Dictated by: Chente Maldonado M.D. on 11/26/2023 at 16:46 Approved by: Chente Maldonado M.D. on 11/26/2023 at 16:47
--- NOTE | 2023-11-26 17:06 | EKG_ITS ---
[facility] [address] [place] [address] Test Date: 2023-11-26 Pat Name: Reymundo Victoria Department: [facility] Room: Gender: Male Story Reader: HANK : 1945 Requested By: Order Number: [id number] Reading MD: Griffin Dietrich Measurements Intervals [place] Rate: 121 P: 52 WI: 144 QRS: -51 QRSD: 66 T: 56 QT: 300 QTc: 426 Interpretive Statements Sinus tachycardia Left axis deviation Nonspecific ST and T wave abnormality Electronically Signed On 11-29-2023 17:39:22 PDT by Griffin Dietrich
--- NOTE | 2023-11-26 17:08 | DI.CT.S_ITS ---
PROCEDURE: CT HEAD/BRAIN WO CON INDICATIONS: AMS / Dizzy TECHNIQUE: Noncontrast 4.5 mm thick angled axial sections acquired from the foramen magnum to the vertex, with coronal and sagittal reformats. For radiation dose reduction, the following was used: automated exposure control, adjustment of mA and/or kV according to patient size. COMPARISON: None. FINDINGS: Image quality: Mild streak artifact can be seen through the skull base. CSF spaces: Basal cisterns are patent. No extra-axial fluid collections. The ventricles are symmetric in size and shape. Brain: No intracranial bleeds or masses. There is cerebral volume loss for age, with resultant ventricular and sulcal prominence. There are periventricular and deep white matter chronic small vessel ischemic changes. There is intracranial internal carotid artery atherosclerosis. Skull and face: Calvarium and visualized facial bones appear intact, without suspicious lesions. Sinuses: Moderate mucosal thickening can be seen within the right maxillary sinus. The paranasal sinuses otherwise appear clear. No abnormal fluid is seen within the mastoid air cells. IMPRESSION: No acute intracranial pathology. No acute intracranial hemorrhage is seen. If there is strong clinical suspicion for an acute stroke, please consider a brain MRI for further evaluation, as it is more sensitive (assuming that there is no contraindication to MRI). Additional findings: Focal right maxillary sinus disease. Dictated by: Chente Maldonado M.D. on 11/26/2023 at 17:25 Approved by: Chente Maldonado M.D. on 11/26/2023 at 17:27
--- NOTE | 2023-11-26 17:08 | DI.CT.S_ITS ---
PROCEDURE: CT ANGIO HEAD AND NECK INDICATIONS: AMS / Dizzy TECHNIQUE: After the administration of intravenous contrast, 1 mm thick sections acquired from the aortic arch through the [place] of [place]. 3-dimensional mrtihjv-yunsvxdoy-dnffdmvdra (MIP) and/or volume rendering reformats were acquired of the central intracranial vasculature and neck separately. For radiation dose reduction, the following was used: automated exposure control, adjustment of mA and/or kV according to patient size. COMPARISON: [facility], CT, CT HEAD/BRAIN WO CON, 11/26/2023, 17:56. [facility], CT, CT SOFT TISSUE NECK WITH CONTRAST, 05/31/2023, 8:40. FINDINGS: Image quality: There is streak artifact seen through the level of the shoulders. Limited by bolus timing, with venous contamination. BRAIN: CSF spaces: Ventricles are normal in size and shape. Basal cisterns are patent. No extra-axial fluid collections. Brain: No significant abnormality of the brain can be seen. Skull and face: Calvarium and facial bones appear intact, without suspicious lesions. Orbits appear normal. Sinuses: Sinuses and mastoids are clear. HEAD CT ANGIOGRAPHY: Anterior circulation: Intracranial internal carotid arteries demonstrate atherosclerotic irregularity and calcification, with up to 70% narrowing on each side.. The flow within the paired anterior cerebral arteries is normal and symmetric. The flow within the middle cerebral arteries is normal and symmetric. The anterior communicating artery is seen. No aneurysms are seen. Posterior circulation: Visualized portions of the vertebral arteries demonstrate normal caliber, and join to form a normal appearing basilar artery. Flow within the posterior cerebral arteries is normal and symmetric. No aneurysms are seen. NECK CT ANGIOGRAPHY: Carotid system: The great vessels demonstrate a conventional anatomy as they arise from the aortic arch. The origins of the common carotid arteries appear patent. The common carotid arteries demonstrate normal caliber and courses. The bifurcation regions demonstrate dense atherosclerotic calcification and irregularity. There is 80-90% narrowing at the origin of the left internal carotid artery. There is 70-80% narrowing at the origin of the right internal carotid artery. The more distal internal carotid arteries demonstrate normal course and caliber. Posterior circulation: The origins of the vertebral arteries demonstrate irregularity, with up to 50% narrowing on each side. The more superior extracranial portions of both vertebral arteries also demonstrate normal courses and calibers. The right vertebral artery is mildly dominant to the left. Soft tissues: Visualized neck soft tissues demonstrate no suspicious abnormalities. Mild emphysematous changes can be seen at the lung apices. 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 Not well seen on the current study. Bones: No suspicious bony lesions. Visualized cervical spine appears normally aligned. [id number] cervical spine degenerative change can be seen. IMPRESSION: Focal calcification with narrowing involving the origins of the internal carotid arteries, with 80-90% narrowing on the left and 70-80% narrowing on the right. Within intracranial internal carotid arteries, there is dense calcification, with up to 70% narrowing on each side. Any quantitative measurements of stenosis were performed using NASCET criteria. Dictated by: Chente Maldonado M.D. on 11/26/2023 at 17:27 Approved by: Chente Maldonado M.D. on 11/26/2023 at 17:31
--- NOTE | 2023-11-26 17:13 | PC.NURSE ---
this RN informed provider immediately of patient vitals and this RN placed NIO for sepsis due to vitals.
[2023-11-26 17:14] LABS: Add Manual Diff / Slide Review NO; Basophils Absolute Auto 0 /uL (0-100); Basophils Percent Auto 0.1 % (0-2); Eosinophils Absolute Auto 0 /uL (0-450); Eosinophils Percent Auto 0.2 % (2-4); Hemoglobin 12.5 g/dL (13.5-17.5); Lymphocytes Absolute Auto 100 /uL (1100-4500); Lymphocytes Percent Auto 0.9 % (25-40); Mean Corpuscular HGB Conc 32.8 % (30-36); Mean Corpuscular Hemoglobin 29.4 PG (26-34); Mean Corpuscular Volume 89.5 fL (80-100); Monocytes Absolute Auto 300 /uL (0-900); Monocytes Percent Auto 2.4 % (3-14); Neutrophils Absolute Auto 12500 /uL (1500-7000); Neutrophils Percent Auto 96.4 % (50-75); Platelet Count 262 X10^3/uL (150-400); Red Blood Cell Count 4.24 X10^6/uL (4.5-5.9); Red Cell Distribution Width 13.7 % (11.6-14.8); White Blood Cell Count 12.9 X10^3/uL (4.5-11.0)
[2023-11-26] MEDS: SODIUM CHLORIDE 0.9% 1,000 ML 1000 ML IV ×2 (17:20→18:46)
[2023-11-26 17:23] LABS: INR 1.3 (0.9-1.3); Prothrombin Time 14.5 SECONDS (9.4-12.5)
[2023-11-26 17:25] LABS: PTT Partial Thromboplastin Tim 39 SECONDS (25.1-36.5)
[2023-11-26 17:26] LABS: HEMOLYSIS < 15 (0-50); Potassium 4.2 mmol/L (3.4-5.1)
[2023-11-26 17:27] LABS: Alanine Aminotransferase 28 IU/L (<50); Albumin 4.2 g/dL (3.5-5.0); Albumin Globulin Ratio 0.9 (1.0-2.8); Alkaline Phosphatase 84 U/L (38-126); Aspartate Aminotransferase 39 IU/L (17-59); BUN Creatinine Ratio 22.8 (6-22); Bilirubin Total 0.4 mg/dL (0.2-1.3); Blood Urea Nitrogen 21 mg/dL (9-20); Calcium 9.2 mg/dL (8.4-10.2); Carbon Dioxide 27 mmol/L (22-32); Chloride 98 mmol/L (98-107); Estimated Glomerular Filt Rate > 60 mL/min (>60); Globulin 4.5 g/dL (1.7-4.1); Glucose 135 mg/dL (80-110); Lactate (Lactic Acid) 1.3 mmol/L (0.7-2.1); Lipase 22 U/L (23-300); Sodium 135 mmol/L (137-145); Total Protein 8.7 g/dL (6.3-8.2)
--- NOTE | 2023-11-26 17:43 | PC.NURSE ---
Per daughter patient chokes himself while eating and is concerned some food has aspirated. Pt is being followed by a psychiatrist. Pt oxygen sitting at 91% on RA. Pt placed on 2L via NC and oxygen saturation improves to 96% on 2L via NC. He is tachypnenic. RT is called for an eval and treat.
[2023-11-26 17:44] LABS: Procalcitonin 0.766 ng/mL (<0.5)
--- NOTE | 2023-11-26 17:47 | PC.NURSE ---
Pt also has rash on his right upper chest just over his collar bone. Per daughter this is new as of today.
--- NOTE | 2023-11-26 17:56 | ED_ITS ---
HPI - Altered Mental Status General Chief Complaint: Dizziness Stated Complaint: Can't Stand, Dizzyness, High BP Time Seen by Provider: 11/26/23 17:08 Source: patient and family Mode of arrival: Wheelchair History of Present Illness HPI narrative: Patient is a 78-year-old male history of dysphagia prior squamous cell carcinoma of the tongue presenting today with altered mental status and dizziness. He is found to be febrile of 102.6 and tachycardic. He lives with daughter and . Patient says he was playing video game he went to stand up got very dizzy and almost passed out. Daughter reports that when he stood up his arm was shaking he was awake but a little bit not responsive. He did not pass out. He does have a cough. Daughter said that he worked with physical therapy improved his swallow initially and then over last few months as decided not to do physical therapy he is holding his. She suspect that he probably aspirated. He denies any pain. 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 household members: spouse and children Smoking Status: Former smoker alcohol intake: former Smoking Status: Former smoker Substance Use Type: does not use Exam Initial Vital Signs Initial Vital Signs: Vital Signs Temperature 102.6 F H 11/26/23 16:39 Pulse Rate 122 H 11/26/23 16:39 Respiratory Rate 22 11/26/23 16:39 Blood Pressure 120/59 L 11/26/23 16:39 Pulse Oximetry 91 11/26/23 16:39 Oxygen Delivery Method Room Air 11/26/23 16:39 GENERAL: Alert thin chronically ill male HEENT: Head atraumatic,EOMI, pupils reactive, face symmetric, dry mucous membranes CARDIOVASCULAR: Regular rate and rhythm without murmurs, rubs or gallops. RESPIRATORY: Breath sounds equal bilaterally, no wheezes rales or rhonchi. ABDOMEN: Soft, nontender. Normoactive bowel sounds all 4 quadrants. No guarding or rebound. EXTREMITIES: Normal range of motion, no clubbing or edema. Neurovascularly intact NEUROLOGICAL: Alert and oriented x3.Normal gait and speech. Cranial nerves II through XII grossly intact. 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 Course Orders Ordered: ED Orders 11/26/23 16:56 XR chest 1V Stat EKG-12 Lead Stat RT Consult Eval and Treat NOW 11/26/23 17:00 Complete Blood Count AUTO DIFF Stat Comprehensive Metabolic Panel Stat Lactate (Lactic Acid) Stat Lipase Stat PTT Partial Thromboplastin Romero Stat Procalcitonin Stat Prothrombin Time INR Stat 11/26/23 17:08 CT angio head and neck Stat CT head/brain wo con Stat 11/26/23 17:15 Blood Culture Stat 11/26/23 17:36 Covid-19 + FLU A/B + RSV - PCR Stat Respiratory Panel (Film Array) Stat 11/26/23 19:15 Urine Microscopic Stat Acetaminophen (Acetaminophen 325 Mg Tablet) 650 mg PO Q6H [facility] Last Admin: 11/26/23 22:08 Dose: Not Given Documented By: SRI Albuterol (Albuterol 2.5 Mg/3 Ml Neb (Adult)) 2.5 mg INH [id number] PRN PRN Reason: Shortness Of Breath Enoxaparin Sodium (Enoxaparin 40 Mg/0.4 Ml Syringe) 40 mg SUBCUT DAILY [facility] Guaifenesin (Guaifenesin Er 600 Mg Tab) 600 mg PO BID [facility] Last Admin: 11/26/23 22:59 Dose: 600 mg Documented By: SRI Piperacillin Sod/Tazobactam (Sod 4.5 gm/ Sodium Chloride) 100 mls @ 25 mls/hr IV Q8H [facility] Mirtazapine (Mirtazapine 15 Mg Tablet) 15 mg PO BEDTIME [facility] Last Admin: 11/26/23 22:59 Dose: 15 mg Documented By: SRI Naloxone HCl (Naloxone 0.4 Mg/Ml Vial) 0.2 mg IV Q2MIN PRN PRN Reason: Opiate Reversal Olanzapine (Olanzapine 2.5 Mg Tablet) 5 mg PO BEDTIME [facility] Last Admin: 11/26/23 22:59 Dose: 5 mg Documented By: SRI Ondansetron HCl (Ondansetron 4 Mg/2 Ml Inj) 4 mg IV NOW PRN PRN Reason: Nausea And Vomiting Ondansetron HCl (Ondansetron 4 Mg Odt) 4 mg SL NOW PRN PRN Reason: Nausea And Vomiting Ondansetron HCl (Ondansetron 4 Mg Odt) 4 mg PO Q8HR PRN PRN Reason: Nausea And Vomiting Sennosides (Sennosides 8.6 Mg Tablet) 17.2 mg PO BEDTIME [facility] Last Admin: 11/26/23 22:08 Dose: Not Given Documented By: SRI Discontinued Medications Sodium Chloride (Normal Saline 0.9%) 1,000 mls @ 1,000 mls/hr IV BOLUS ONE Stop: 11/26/23 17:55 Last Infusion: 11/26/23 18:45 Dose: Infused Documented By: Admin: 11/26/23 17:20 Dose: 1,000 mls/hr Documented By: THIEN Piperacillin Sod/Tazobactam (Sod 4.5 gm/ Sodium Chloride) 100 mls @ 200 mls/hr IV NOW ONE Stop: 11/26/23 18:28 Last Infusion: 11/26/23 19:44 Dose: Infused Documented By: Admin: 11/26/23 18:44 Dose: 200 mls/hr Documented By: THIEN Sodium Chloride (Normal Saline 0.9%) 1,000 mls @ 1,000 mls/hr IV BOLUS ONE Stop: 11/26/23 19:31 Last Admin: 11/26/23 18:46 Dose: 1,000 mls/hr Documented By: THIEN Ketorolac Tromethamine (Ketorolac 30 Mg/Ml Vial) 15 mg IV NOW ONE Stop: 11/26/23 18:33 Last Admin: 11/26/23 18:46 Dose: Not Given Documented By: THIEN Vital Signs Vital signs: Vital Signs - 8 hr 11/26/23 17:30 11/26/23 17:30 11/26/23 17:40 Temperature Pulse Rate 121 H 124 H Respiratory Rate Blood Pressure 174/74 H Pulse Oximetry 94 95 Oxygen Delivery Method Oxygen Flow Rate 11/26/23 17:40 11/26/23 17:50 11/26/23 17:50 Temperature Pulse Rate 121 H Respiratory Rate 42 H Blood Pressure 163/74 H 158/70 H Pulse Oximetry 96 Oxygen Delivery Method Nasal Cannula Oxygen Flow Rate 2 11/26/23 18:14 11/26/23 18:30 11/26/23 18:44 Temperature 100.8 F H Pulse Rate 120 H 119 H 119 H Respiratory Rate 38 H Blood Pressure Pulse Oximetry 95 95 Oxygen Delivery Method Nasal Cannula Oxygen Flow Rate 2 11/26/23 18:44 11/26/23 19:00 11/26/23 19:00 Temperature Pulse Rate 114 H Respiratory Rate 37 H Blood Pressure 146/65 H 146/64 H Pulse Oximetry 95 Oxygen Delivery Method Nasal Cannula Oxygen Flow Rate 2 MDM - Altered Mental Status Lab Data 11/26/23 17:00 11/26/23 17:00 Labs: Lab Results 11/26/23 11/26/23 11/26/23 Range/Units 17:00 17:36 17:36 WBC 12.9 H (4.5-11.0) X10^3/uL RBC 4.24 L (4.5-5.9) X10^6/uL Hgb 12.5 L (13.5-17.5) g/dL Hct 38.0 L (41-53) % MCV 89.5 (80-100) fL MCH 29.4 (26-34) PG MCHC 32.8 (30-36) % RDW 13.7 (11.6-14.8) % Plt Count 262 (150-400) X10^3/uL Neut % (Auto) 96.4 H (50-75) % Lymph % (Auto) 0.9 L (25-40) % Nash % (Auto) 2.4 L (3-14) % Eos % (Auto) 0.2 L (2-4) % Baso % (Auto) 0.1 (0-2) % Neut # (Auto) 23472 H (9977-7596) /uL Lymph # (Auto) 100 L (3887-3406) /uL Nash # (Auto) 300 (0-900) /uL Eos # (Auto) 0 (0-450) /uL Baso # (Auto) 0 (0-100) /uL PT 14.5 H (9.4-12.5) SECONDS INR 1.3 (0.9-1.3) APTT 39 H (25.1-36.5) SECONDS Sodium 135 L (137-145) mmol/L Potassium 4.2 (3.4-5.1) mmol/L Chloride 98 (98-107) mmol/L Carbon Dioxide 27 (22-32) mmol/L BUN 21 H (9-20) mg/dL Creatinine 0.92 (0.66-1.25) mg/dL Estimated GFR > 60 (>60) mL/min BUN/Creatinine Ratio 22.8 H (6-22) Glucose 135 H (80-110) mg/dL Lactate 1.3 (0.7-2.1) mmol/L Calcium 9.2 (8.4-10.2) mg/dL Total Bilirubin 0.4 (0.2-1.3) mg/dL AST 39 (17-59) IU/L ALT 28 (<50) IU/L Alkaline Phosphatase 84 (38-126) U/L Total Protein 8.7 H (6.3-8.2) g/dL Albumin 4.2 (3.5-5.0) g/dL Globulin 4.5 H (1.7-4.1) g/dL Albumin/Globulin Ratio 0.9 L (1.0-2.8) Lipase 22 L (23-300) U/L Procalcitonin 0.766 H (<0.5) ng/mL Urine RBC (0-5/HPF) Urine WBC (0-5/HPF) Ur Squamous Epith Cells (0-5/HPF) Urine Bacteria (None) Urine Mucus (Negative) Ur Culture Indicated? Vol Urine Centrifuged Chlamy pneumoniae PCR Not detected (Not Detect) Adenovirus (PCR) Not detected (Not Detect) B. pertussis DNA (PCR) Not detected (Not Detect) B.parapertussis DNA PCR Not detected (Not Detecte) Coronavirus OC43 (PCR) Not detected (Not Detect) Coronavirus HKU1 (PCR) Not detected (Not Detect) Coronavirus 229E (PCR) Not detected (Not Detect) SARS-CoV-2 (PCR) Negative Not detected (Negative) Coronavirus NL63 (PCR) Not detected (Not Detect) Human Metapneumovir PCR Not detected (Not Detect) Influenza A (RT-PCR) Flu a negative (NEGATIVE) Influenza Type A (PCR) Not detected (Not Detect) Influenza B (RT-PCR) Flu b negative (NEGATIVE) Influenza Type B (PCR) Not detected (Not Detect) M. pneumoniae (PCR) Not detected (Not Detect) Parainfluenza 1 (PCR) Not detected (Not Detect) Parainfluenza 2 (PCR) Not detected (Not Detect) Parainfluenza 3 (PCR) Not detected (Not Detect) Parainfluenza 4 (PCR) Not detected (Not Detect) RSV (PCR) Negative (Negative) Entero/Rhino (PCR) (Not Detect) 11/26/23 11/26/23 Range/Units 17:36 19:15 WBC (4.5-11.0) X10^3/uL RBC (4.5-5.9) X10^6/uL Hgb (13.5-17.5) g/dL Hct (41-53) % MCV (80-100) fL MCH (26-34) PG MCHC (30-36) % RDW (11.6-14.8) % Plt Count (150-400) X10^3/uL Neut % (Auto) (50-75) % Lymph % (Auto) (25-40) % Nash % (Auto) (3-14) % Eos % (Auto) (2-4) % Baso % (Auto) (0-2) % Neut # (Auto) (3696-9497) /uL Lymph # (Auto) (2491-7948) /uL Nash # (Auto) (0-900) /uL Eos # (Auto) (0-450) /uL Baso # (Auto) (0-100) /uL PT (9.4-12.5) SECONDS INR (0.9-1.3) APTT (25.1-36.5) SECONDS Sodium (137-145) mmol/L Potassium (3.4-5.1) mmol/L Chloride (98-107) mmol/L Carbon Dioxide (22-32) mmol/L BUN (9-20) mg/dL Creatinine (0.66-1.25) mg/dL Estimated GFR (>60) mL/min BUN/Creatinine Ratio (6-22) Glucose (80-110) mg/dL Lactate (0.7-2.1) mmol/L Calcium (8.4-10.2) mg/dL Total Bilirubin (0.2-1.3) mg/dL AST (17-59) IU/L ALT (<50) IU/L Alkaline Phosphatase (38-126) U/L Total Protein (6.3-8.2) g/dL Albumin (3.5-5.0) g/dL Globulin (1.7-4.1) g/dL Albumin/Globulin Ratio (1.0-2.8) Lipase (23-300) U/L Procalcitonin (<0.5) ng/mL Urine RBC 1-5/hpf (0-5/HPF) Urine WBC 0-1/hpf (0-5/HPF) Ur Squamous Epith Cells 0-1 /hpf (0-5/HPF) Urine Bacteria Occasional (0-1) (None) Urine Mucus 1+ H (Negative) Ur Culture Indicated? Cult not indicated Vol Urine Centrifuged 10ml (spun) Chlamy pneumoniae PCR (Not Detect) Adenovirus (PCR) (Not Detect) B. pertussis DNA (PCR) (Not Detect) B.parapertussis DNA PCR (Not Detecte) Coronavirus OC43 (PCR) (Not Detect) Coronavirus HKU1 (PCR) (Not Detect) Coronavirus 229E (PCR) (Not Detect) SARS-CoV-2 (PCR) (Negative) Coronavirus NL63 (PCR) (Not Detect) Human Metapneumovir PCR (Not Detect) Influenza A (RT-PCR) (NEGATIVE) Influenza Type A (PCR) (Not Detect) Influenza B (RT-PCR) (NEGATIVE) Influenza Type B (PCR) (Not Detect) M. pneumoniae (PCR) (Not Detect) Parainfluenza 1 (PCR) (Not Detect) Parainfluenza 2 (PCR) (Not Detect) Parainfluenza 3 (PCR) (Not Detect) Parainfluenza 4 (PCR) (Not Detect) RSV (PCR) Not detected (Negative) Entero/Rhino (PCR) Detected H (Not Detect) Urine Dip Bedside Urine Glucose Negative Bedside Urine Bilirubin - Negative Bedside Urine Ketone - Negative Urine Specific [place] 1.01 Bedside Urine Occult Blood +/- Bedside Urine pH 6 Bedside Urine Protein - Negative Bedside Urine Urobilinogen - Negative Bedside Urine Nitrite - Negative Bedside Urine Leukocytes - Negative Esterase Imaging Data CT scan - head: Radiologist's Impression: PROCEDURE: CT HEAD/BRAIN WO CON INDICATIONS: AMS / Dizzy TECHNIQUE: Noncontrast 4.5 mm thick angled axial sections acquired from the foramen magnum to the vertex, with coronal and sagittal reformats. For radiation dose reduction, the following was used: automated exposure control, adjustment of mA and/or kV according to patient size. COMPARISON: None. FINDINGS: Image quality: Mild streak artifact can be seen through the skull base. CSF spaces: Basal cisterns are patent. No extra-axial fluid collections. The ventricles are symmetric in size and shape. Brain: No intracranial bleeds or masses. There is cerebral volume loss for age, with resultant ventricular and sulcal prominence. There are periventricular and deep white matter chronic small vessel ischemic changes. There is intracranial internal carotid artery atherosclerosis. Skull and face: Calvarium and visualized facial bones appear intact, without suspicious lesions. Sinuses: Moderate mucosal thickening can be seen within the right maxillary sinus. The paranasal sinuses otherwise appear clear. No abnormal fluid is seen within the mastoid air cells. IMPRESSION: No acute intracranial pathology. No acute intracranial hemorrhage is seen. If there is strong clinical suspicion for an acute stroke, please consider a brain MRI for further evaluation, as it is more sensitive (assuming that there is no contraindication to MRI). Additional findings: Focal right maxillary sinus disease. Dictated by: Chente Maldonado M.D. on 11/26/2023 at 17:25 CTA - brain/neck: Radiologist's Impression: PROCEDURE: CT ANGIO HEAD AND NECK INDICATIONS: AMS / Dizzy TECHNIQUE: After the administration of intravenous contrast, 1 mm thick sections acquired from the aortic arch through the [place] of [place]. 3-dimensional [id number] (MIP) and/or volume rendering reformats were acquired of the central intracranial vasculature and neck separately. For radiation dose reduction, the following was used: automated exposure control, adjustment of mA and/or kV according to patient size. COMPARISON: [facility], CT, CT HEAD/BRAIN WO CON, 11/26/2023, 17:56. [facility], CT, CT SOFT TISSUE NECK WITH CONTRAST, 05/31/2023, 8:40. FINDINGS: Image quality: There is streak artifact seen through the level of the shoulders. Limited by bolus timing, with venous contamination. BRAIN: CSF spaces: Ventricles are normal in size and shape. Basal cisterns are patent. No extra-axial fluid collections. Brain: No significant abnormality of the brain can be seen. Skull and face: Calvarium and facial bones appear intact, without suspicious lesions. Orbits appear normal. Sinuses: Sinuses and mastoids are clear. HEAD CT ANGIOGRAPHY: Anterior circulation: Intracranial internal carotid arteries demonstrate atherosclerotic irregularity and calcification, with up to 70% narrowing on each side.. The flow within the paired anterior cerebral arteries is normal and symmetric. The flow within the middle cerebral arteries is normal and symmetric. The anterior communicating artery is seen. No aneurysms are seen. Posterior circulation: Visualized portions of the vertebral arteries demonstrate normal caliber, and join to form a normal appearing basilar artery. Flow within the posterior cerebral arteries is normal and symmetric. No aneurysms are seen. NECK CT ANGIOGRAPHY: Carotid system: The great vessels demonstrate a conventional anatomy as they arise from the aortic arch. The origins of the common carotid arteries appear patent. The common carotid arteries demonstrate normal caliber and courses. The bifurcation regions demonstrate dense atherosclerotic calcification and irregularity. There is 80- 90% narrowing at the origin of the left internal carotid artery. There is 70-80% narrowing at the origin of the right internal carotid artery. The more distal internal carotid arteries demonstrate normal course and caliber. Posterior circulation: The origins of the vertebral arteries demonstrate irregularity, with up to 50% narrowing on each side. The more superior extracranial portions of both vertebral arteries also demonstrate normal courses and calibers. The right vertebral artery is mildly dominant to the left. Soft tissues: Visualized neck soft tissues demonstrate no suspicious abnormalities. Mild emphysematous changes can be seen at the lung apices. 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 Not well seen on the current study. Bones: No suspicious bony lesions. Visualized cervical spine appears normally aligned. [id number] cervical spine degenerative change can be seen. IMPRESSION: Focal calcification with narrowing involving the origins of the internal carotid arteries, with 80-90% narrowing on the left and 70-80% narrowing on the right. Within intracranial internal carotid arteries, there is dense calcification, with up to 70% narrowing on each side. Any quantitative measurements of stenosis were performed using NASCET criteria. Dictated by: Chente Maldonado M.D. on 11/26/2023 at 17:27 ECG Data Attestation: I personally reviewed and interpreted this ECG as follows: Prior ECG tracings: available for review Interpretation: Sinus rhythm rate 121 ME interval 144 QRS 66 QTC 426 no ischemia MDM Narrative Medical decision making narrative: MDM CC: Altered mental status dizziness Complicating co-morbidities: Prior squamous cell carcinoma of the tongue dysphagia poor appetite Data collected from: Daughter Medical records reviewed: PCP records reviewed Differential considered: Sepsis CVA meningitis Exam documented above, pertinent findings include: Thin cachectic elderly male. He does have dry mucous membranes but now the fever has come down better. Neurovascularly intact abdomen is soft nontender Lab Test results independently reviewed as above. Pertinent findings: WBC 12.9, hb 12.5 hct 38, platelets 262 Lactate 1.3, procalcitonin 0.766 CMP no significant electrolyte abnormality sodium is 135 potassium 4.2 no VIOLA creatinine 0.92 previously 0.67 Independently reviewed EKG as above sinus tachycardia rate 122 no ischemia Imaging studies independently reviewed: Chest x-ray developing opacity in the lung bases infiltrates are suspected persistent right pleural effusion Head CT no intracranial abnormalities CT angio does have 80-90% narrowing on left and 70-80% narrowing on the right Consultations: Dr. De Los Santos accepts Treatments: IV fluidsx 2 L for tachycardia, Zosyn, Toradol Re-evaluations: Patient is feeling better awake alert and appropriate Discussion: Patient is 78-year-old male presents today with fever complete fusion and near syncopal episode. Daughter describes an arm shaking but was awake. Really feel like this was a seizure. Not really having any evidence of stroke. He is found to have bilateral carotid stenosis. He has dysphagia at baseline daughter reports that he holds his food has difficulty swallowing. Suspect may be partial aspiration pneumonia. However he is positive for entero/rhinovirus as well. He has no respiratory distress lungs are relatively clear but he is requiring 2 L of oxygen. He does have mild leukocytosis he was empirically given antibiotics. At this time he is not hypotensive tachycardia is improving fever is improving, no evidence of septic shock. Blood cultures pending Discharge Plan Departure Patient Disposition: Admitted As Inpatient Clinical Impression: Upper respiratory infection, Aspiration pneumonia, Hypoxia Admit Date/Time: 11/26/23 19:35 Admit Provider: David Hairston
[2023-11-26 18:19] LABS: Influenza A - CEPHEID Flu A NEGATIVE (NEGATIVE); Influenza B - CEPHEID Flu B NEGATIVE (NEGATIVE); Respiratory Syncytial Virus Negative (Negative)
[2023-11-26 18:26] LABS: COVID-19 CEPHEID 4-PLEX PCR Negative (Negative)
[2023-11-26] MEDS: PIPERACILLIN/TAZO 4.5 GM in SODIUM CHLORIDE 0.9% 100 ML IV (18:44)
[2023-11-26 19:22] LABS: Adenovirus Not Detected (Not Detect); B. parapertussis Not Detected (Not Detecte); Bordetella pertussis Not Detected (Not Detect); Chlamydophila pneumoniae Not Detected (Not Detect); Coronavirus 229E Not Detected (Not Detect); Coronavirus HKU1 Not Detected (Not Detect); Coronavirus NL 63 Not Detected (Not Detect); Coronavirus OC43 Not Detected (Not Detect); Human Metapneumovirus Not Detected (Not Detect); Human Rhinovirus/Enterovirus Detected (Not Detect); Influenza A Not Detected (Not Detect); Influenza B Not Detected (Not Detect); Mycoplasma pneumoniae Not Detected (Not Detect); Parainfluenza Virus 1 Not Detected (Not Detect); Parainfluenza Virus 2 Not Detected (Not Detect); Parainfluenza Virus 3 Not Detected (Not Detect); Parainfluenza Virus 4 Not Detected (Not Detect); Respiratory Syncytial Virus Not Detected (Not Detect); SARS- CoV-2 Not Detected (Not Detecte)
--- NOTE | 2023-11-26 19:26 | PC.NURSE ---
Pt sitting in ED stretcher speaking with daughter and . No distress noted at this time. Pt remains connected to clood pressure, pulse ox, resp, and cardiac monitors with alarms on and audible. Call light within reach.
[2023-11-26 19:36] LABS: Bacteria Urine Occasional (0-1); Culture Indicated Urine Cult Not Indicated; Mucus Urine 1+ (Negative); RBC Urine 1-5/HPF (0-5/HPF); Squamous Epithelial Cell Urine 0-1 /HPF (0-5/HPF); Urine Volume 10mL (spun); WBC Urine 0-1/HPF (0-5/HPF)
--- NOTE | 2023-11-26 20:17 | P.HP_ITS ---
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 In addition tested positive for entero/rhino virus on respiratory panel. 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 household members: spouse and children Smoking Status: Former smoker alcohol intake: never Meds Home Medications and Allergies Home Medications Medication Instructions Recorded Confirmed Type mirtazapine 15 mg tablet 15 mg PO BEDTIME depression #30 11/15/23 11/26/23 Rx tabs olanzapine 5 mg tablet 5 mg PO BEDTIME #30 tabs 11/22/23 11/26/23 Rx Allergies Allergy/AdvReac Type Severity Reaction Status Date / Time fentanyl AdvReac Severe Fever, Verified 11/22/23 16:33 Vomiting, Syncope Review of Systems Constitutional Comments: fever, generalized weakness, dizziness Cardiovascular Comments: w/o chest pain Respiratory Comments: short of breath, cough Gastrointestinal Comments: w/o abdominal pain, heartburn or changes of bowel habits Lacks appetite Psychiatric Comments: depressed mood Exam Vital Signs (past 8 hours): - 11/26/23 16:39 11/26/23 17:01 11/26/23 17:02 Temperature 102.6 F H Pulse Rate 122 H 127 H 127 H Respiratory Rate 22 28 H Blood Pressure 120/59 L Pulse Oximetry 91 90 L 92 Oxygen Delivery Method Room Air Room Air Room Air Oxygen Flow Rate 11/26/23 17:02 11/26/23 17:19 11/26/23 17:19 Temperature Pulse Rate 117 H Respiratory Rate Blood Pressure 167/74 H 163/72 H Pulse Oximetry 92 Oxygen Delivery Method Oxygen Flow Rate 11/26/23 17:20 11/26/23 17:20 11/26/23 17:30 Temperature Pulse Rate 117 H 121 H Respiratory Rate Blood Pressure 152/70 H Pulse Oximetry 91 94 Oxygen Delivery Method Oxygen Flow Rate 11/26/23 17:30 11/26/23 17:40 11/26/23 17:40 Temperature Pulse Rate 124 H Respiratory Rate Blood Pressure 174/74 H 163/74 H Pulse Oximetry 95 Oxygen Delivery Method Oxygen Flow Rate 11/26/23 17:50 11/26/23 17:50 11/26/23 18:14 Temperature Pulse Rate 121 H 120 H Respiratory Rate 42 H Blood Pressure 158/70 H Pulse Oximetry 96 Oxygen Delivery Method Nasal Cannula Oxygen Flow Rate 2 11/26/23 18:30 11/26/23 18:44 11/26/23 18:44 Temperature 100.8 F H Pulse Rate 119 H 119 H Respiratory Rate 38 H Blood Pressure 146/65 H Pulse Oximetry 95 95 Oxygen Delivery Method Nasal Cannula Oxygen Flow Rate 2 11/26/23 19:00 11/26/23 19:00 Temperature Pulse Rate 114 H Respiratory Rate 37 H Blood Pressure 146/64 H Pulse Oximetry 95 Oxygen Delivery Method Nasal Cannula Oxygen Flow Rate 2 Oxygen Delivery Method Nasal Cannula Oxygen Flow Rate 2 Const Other: in no distress, daughter at bedside HENWI Other: normocephalic Eyes Other: eomi Neck Other: supple Resp Other: b/l rhonchi Cardio Other: tachycardic, regular GI Other: not distended Neuro Other: w/o focal deficits Extrem Other: w/o swelling Psych Other: depressed mood Objective ECG Impression: Sinus tachycardia Labs 11/26/23 17:00 11/26/23 17:00 Labs: Laboratory Results - last 24 hr 11/26/23 11/26/23 11/26/23 17:00 17:36 17:36 WBC 12.9 H RBC 4.24 L Hgb 12.5 L Hct 38.0 L MCV 89.5 MCH 29.4 MCHC 32.8 RDW 13.7 Plt Count 262 Neut % (Auto) 96.4 H Lymph % (Auto) 0.9 L [place] % (Auto) 2.4 L Eos % (Auto) 0.2 L Baso % (Auto) 0.1 Neut # (Auto) 17140 H Lymph # (Auto) 100 L [place] # (Auto) 300 Eos # (Auto) 0 Baso # (Auto) 0 PT 14.5 H INR 1.3 APTT 39 H Sodium 135 L Potassium 4.2 Chloride 98 Carbon Dioxide 27 BUN 21 H Creatinine 0.92 Estimated GFR > 60 BUN/Creatinine Ratio 22.8 H Glucose 135 H Lactate 1.3 Calcium 9.2 Total Bilirubin 0.4 AST 39 ALT 28 Alkaline Phosphatase 84 Total Protein 8.7 H Albumin 4.2 Globulin 4.5 H Albumin/Globulin Ratio 0.9 L Lipase 22 L Procalcitonin 0.766 H Urine RBC Urine WBC Ur Squamous Epith Cells Urine Bacteria Urine Mucus Ur Culture Indicated? Vol Urine Centrifuged Chlamy pneumoniae PCR Not detected Adenovirus (PCR) Not detected B. pertussis DNA (PCR) Not detected B.parapertussis DNA PCR Not detected Coronavirus OC43 (PCR) Not detected Coronavirus HKU1 (PCR) Not detected Coronavirus 229E (PCR) Not detected SARS-CoV-2 (PCR) Negative Not detected Coronavirus NL63 (PCR) Not detected Human Metapneumovir PCR Not detected Influenza A (RT-PCR) Flu a negative Influenza Type A (PCR) Not detected Influenza B (RT-PCR) Flu b negative Influenza Type B (PCR) Not detected M. pneumoniae (PCR) Not detected Parainfluenza 1 (PCR) Not detected Parainfluenza 2 (PCR) Not detected Parainfluenza 3 (PCR) Not detected Parainfluenza 4 (PCR) Not detected RSV (PCR) Negative Entero/Rhino (PCR) 11/26/23 11/26/23 17:36 19:15 WBC RBC Hgb Hct MCV MCH MCHC RDW Plt Count Neut % (Auto) Lymph % (Auto) [place] % (Auto) Eos % (Auto) Baso % (Auto) Neut # (Auto) Lymph # (Auto) [place] # (Auto) Eos # (Auto) Baso # (Auto) PT INR APTT Sodium Potassium Chloride Carbon Dioxide BUN Creatinine Estimated GFR BUN/Creatinine Ratio Glucose Lactate Calcium Total Bilirubin AST ALT Alkaline Phosphatase Total Protein Albumin Globulin Albumin/Globulin Ratio Lipase Procalcitonin Urine RBC 1-5/hpf Urine WBC 0-1/hpf Ur Squamous Epith Cells 0-1 /hpf Urine Bacteria Occasional (0-1) Urine Mucus 1+ H Ur Culture Indicated? Cult not indicated Vol Urine Centrifuged 10ml (spun) Chlamy pneumoniae PCR Adenovirus (PCR) B. pertussis DNA (PCR) B.parapertussis DNA PCR Coronavirus OC43 (PCR) Coronavirus HKU1 (PCR) Coronavirus 229E (PCR) SARS-CoV-2 (PCR) Coronavirus NL63 (PCR) Human Metapneumovir PCR Influenza A (RT-PCR) Influenza Type A (PCR) Influenza B (RT-PCR) Influenza Type B (PCR) M. pneumoniae (PCR) Parainfluenza 1 (PCR) Parainfluenza 2 (PCR) Parainfluenza 3 (PCR) Parainfluenza 4 (PCR) RSV (PCR) Not detected Entero/Rhino (PCR) Detected H Assessment & Plan Assessment and plan (1) Aspiration pneumonia: Status: Acute (2) Acute hypoxemic respiratory failure: Status: Acute (3) Dysphagia: Qualifiers: Dysphagia type: oropharyngeal phase Qualified Code(s): R13.12 - Dysphagia, oropharyngeal phase Status: Acute (4) History of squamous cell carcinoma: Status: Acute (5) Depression, major, recurrent: Qualifiers: Active/Remission status: currently active Major depression episode severity: severe Psychotic features: without psychotic features Qualified Code(s): F33.2 - Major depressive disorder, recurrent severe without psychotic features Status: Acute Assessment & Plan narrative: 1. Aspiration Pneumonia / Sepsis / Acute Hypoxemic respiratory Failure - RLL infiltrate, recurrent, he was hospitalized in [place] last year with it - Zosyn, IVFs, oxygen, Mucinex, prn albuterol - recently advanced PO diet while still on supplemental PEG feedings, followed by it investment/portfolio manager. Speech Tx evaluation. 2. Depression - severe, seen few days ago by PCP who added Zyprexa to Mirtazapine and referred him to psychiatry 3. Hx of Tongue squamous cell carcinoma - followed by ENT, s/p radiation Tx, recent PET scan and laryngoscopy looks good DVT prophylaxis - Lovenox Time-Based Coding :: [TOTAL MINUTES] spent with patient and on the chart (including review of chart, obtaining history, exam, reviewing outside data, placing orders, documenting exam and treatment plan, and counseling patient) on [DATE].
[2023-11-26] MEDS: guaiFENesin ER 600 MG TAB PO (22:59)
[2023-11-26] MEDS: OLANZapine 2.5 MG TABLET 5 MG PO (22:59)
[2023-11-26] MEDS: MIRTAZAPINE 15 MG TABLET PO (22:59)
[2023-11-27] VITALS (8 sets, daily range): BP systolic 113–166; BP diastolic 54–80; PULSE 72–94; RESP 17–27; TEMP 36–36.9; O2SAT 97–100
--- NOTE | 2023-11-27 04:42 | PC.NURSE ---
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 Patient is AxOx4, forgetful. Denies pain. Reports weakness and SOB. Arrived on 3L NC, weaning down as tolerated. VSS. MD spoke with patient & family, daughter (Chayito) expressed concern about patient's swallowing difficulty & patient not eating at home. Speech consult ordered. Took meds crushed mixed with water, taking small sips. Coarse crackles heard in lungs, patient sounds congested. Educated patient on use of IS & deep breathing. Fall precautions in place, family at bedside. Plan of care ongoing.
[2023-11-27 05:01] LABS: Add Manual Diff / Slide Review NO; Basophils Absolute Auto 0 /uL (0-100); Basophils Percent Auto 0.3 % (0-2); Eosinophils Absolute Auto 0 /uL (0-450); Eosinophils Percent Auto 0.6 % (2-4); Lymphocytes Absolute Auto 500 /uL (1100-4500); Lymphocytes Percent Auto 5.9 % (25-40); Mean Corpuscular HGB Conc 33.3 % (30-36); Mean Corpuscular Hemoglobin 29.7 PG (26-34); Mean Corpuscular Volume 89.2 fL (80-100); Monocytes Absolute Auto 600 /uL (0-900); Monocytes Percent Auto 7.8 % (3-14); Neutrophils Absolute Auto 6800 /uL (1500-7000); Neutrophils Percent Auto 85.4 % (50-75); Platelet Count 219 X10^3/uL (150-400); Red Cell Distribution Width 13.7 % (11.6-14.8)
[2023-11-27 05:11] LABS: BUN Creatinine Ratio 20.6 (6-22); Blood Urea Nitrogen 14 mg/dL (9-20); Calcium 8.4 mg/dL (8.4-10.2); Carbon Dioxide 27 mmol/L (22-32); Chloride 105 mmol/L (98-107); Estimated Glomerular Filt Rate > 60 mL/min (>60); Glucose 84 mg/dL (80-110); HEMOLYSIS < 15 (0-50); Potassium 3.5 mmol/L (3.4-5.1); Sodium 137 mmol/L (137-145)
[2023-11-27] MEDS: guaiFENesin ER 600 MG TAB PO ×2 (08:46→21:56)
[2023-11-27] MEDS: ENOXAPARIN 40 MG/0.4 ML SYRINGE SUBCUT (08:47)
--- NOTE | 2023-11-27 09:19 | DIET.CONS ---
Dietary Consultation Note Admission Date: 11/26/2023 19:35 Assessment: 78 y M admitted for aspiration pneumonia. Hx of dysphagia and tongue squamos cell carcinoma. Met w/ pt and family at bedside. Reports does not have PEG, no longer receives enteral feeds. Had PEG 05/2022 to 06/20/2023 per PCP notes. Family reports starting 3 m ago, pt starting throwing away his food, refusing to eat, and overall had decrease in liquid and food intake. No significant weight loss noted. Family notes he has difficulty swallowing. ST was ordered. Family is wanting someone in the room during meal times to help monitor pt's eating. Spoke to nursing staff - pt health care attorney was in with pt this morning for breakfast and will sit in for some of lunch as well. They add extra gravy at home to meals to assist with swallow. Will add to meals now and await ST reccs. Pt likes vanilla ensure. Diet recall: B-oatmeal, applesauce, ensure plus L-soup, turkey or tuna sandwich, ensure plus D-chicken, veg, mashed potatoes, ensure plus 2-4 bottles of water between meals UBW: Per family -Pt was 112-114 lb during cancer treatments. Has since gained weight to 124lb Per EMR- Weight now 122lb. Weight has been 117-123 lb over last year. Ht: 165.1 cm Wt: 55.5 kg BMI: 20.3 Last BM: 11/27/23 (11/27/23 08:50) MNA: 3 Augusto Score: 18 Diet: 11/26/23 Breakfast General (Regular) Diet Diet Modifications: 11/26/23 16:56 NPO Diet Diet Modifications: NPO Type: NPO except for Meds Nutrition Percent Meal Consumed 75% 11/27/23 08:50 Labs: RBC 3.70 X10^6/uL (4.5-5.9) L 11/27/23 04:25 Hgb 11.0 g/dL (13.5-17.5) L 11/27/23 04:25 Hct 33.0 % (41-53) L 11/27/23 04:25 Creatinine 0.68 mg/dL (0.66-1.25) 11/27/23 04:25 Lactate 1.3 mmol/L (0.7-2.1) 11/26/23 17:00 Nutrition Diagnosis: Swallowing difficulty r/t hx of tongue squamos cell carcinoma aeb hx of dysphagia, report of coughing/holding food with po intakes Interventions: -Await ST diet recc -Ensure Vanilla with meals EER: [id number] kcals (30 kcals/kg per BMI) 60 g protein (1 g/kg) Monitoring/Evaluations: PO intakes Electronically Signed by: Viviana Rodriguez 11/27/23 09:19 Clinical Diet[address] [address]
--- NOTE | 2023-11-27 11:43 | PC.NURSE ---
Patient tolerated his medications crushed in apple sauce and cleared his throat x1. Daughter in room and talking for patient and not letting him answer some questions when RN specifically talking to patient. She states that he is purposely choking on his food, so that he does not have to eat. There is some tension noted between family members. His just sits and doesnt say anything at all. Speech therapist into see patient. He is resting comfortably now, we will check on him thoroughly when he eats his lunch.
[2023-11-27] MEDS: PIPERACILLIN/TAZO 3.375 GM in SODIUM CHLORIDE 0.9% 100 ML IV ×2 (12:51→21:44)
--- NOTE | 2023-11-27 13:43 | CM.DANOTE ---
Initial DCP Assessment Note Pt is a 78 yo male, resident of [place], admitted for management of aspiration PNA, entero/rhino virus + and resp failure. PCP: Shady Galvin: SIXTO Reviewed chart, pt discussed in multidisciplinary rounds this morning. Patient currently on room air. Family requesting a consult to psychiatry for reported major depression, per family. Dr Dietrich encourages outpatient follow up. Patient lives with spouse Maria De Jesus and daughter Chayito who manages most care and medical appts for patient. Patient uses FWW at home, 1 person assist, A+Ox4. Patient is anticipated to return home with family to assist, likely over the next 24 hrs, close outpatient follow up recommended. No barriers identified at this time to patient's safe discharge home w/family to assist; close outpatient f/u recommended. CM team will plan to follow clinical course closely in case any DC needs or concerns arise. JUS Nicholson Discharge Planning/Care Management CM Discharge Assessment Start: 11/27/23 13:39 Freq: Status: Active Protocol: Document 11/27/23 13:39 ANABEL (Rec: 11/27/23 13:43 [id number]) Discharge Planning Assessment Assigned Ornamental Plasterer Helper JUS Patino DPOA/Assigned Designee Name Maria De Jesus Victoria, spouse Contact Information [phone] Advance Directives? Yes Advance Directives on File No History Provided By Patient,Family Member,Medical Record Prior Living Arrangements House Household Members spouse,children Type of transporation used prior to Relies on Others admit Independent with ADL's No Is patient alert and oriented? Yes Needs Assistance With Bathing,Eating,Grooming,Meal Prep,Managing Medications,Home Chores / Shopping Barriers to Discharge No Discharge Plan Home Transportation Arrangement Family Referrals Initiated None needed
--- NOTE | 2023-11-27 14:29 | PM.PN.1 ---
Subjective Subjective Interval history: 78 M with previous tongue cancer, depression, chronic aspiration admitted with fever, confusion. Fever to 102.6 on arrival. He is improved today. Daughter reports 3 months of decreased intake. Patient states he is not hungry, cannot overtly state if he feels like something is painful in his throat or he has no appetite. Recently started on mirtazapine and olanzapine per PCP. Discussed with RETAIL SALES ASSOCIATE SEASONAL, patient has chronically known aspiration, patient and family do not wish to be NPO despite discussion with RETAIL SALES ASSOCIATE SEASONAL today. Exam Vital Signs (past 8 hours): - 11/27/23 08:00 11/27/23 12:00 Temperature 97.0 F L 96.8 F L Pulse Rate 72 82 Respiratory Rate 20 19 Blood Pressure 131/61 140/67 Pulse Oximetry 99 99 Oxygen Flow Rate 0 0 Fraction of Inspired Oxygen 28 SaO2/FiO2 Ratio 335 Oxygen Delivery Method Nasal Cannula Oxygen Flow Rate 0 Narrative Exam Narrative: GEN:chronically ill-appearing, cachectic, awake and alert NAD. HEENT: moist mucous membranes, PERRL, no cough. No posterior pharyngeal erythema or exudates. NECK: trachea midline, no JVD Pulm: CTA b/l. No wheezing. CV: RRR no m/r/g. EXT: warm and well perfused with no edema NEURO: awake, no focal deficits Objective Labs 11/27/23 04:25 11/27/23 04:25 Labs: Laboratory Results - last 24 hr 11/26/23 11/26/23 11/26/23 17:00 17:36 17:36 WBC 12.9 H RBC 4.24 L Hgb 12.5 L Hct 38.0 L MCV 89.5 MCH 29.4 MCHC 32.8 RDW 13.7 Plt Count 262 Neut % (Auto) 96.4 H Lymph % (Auto) 0.9 L [place] % (Auto) 2.4 L Eos % (Auto) 0.2 L Baso % (Auto) 0.1 Neut # (Auto) 59940 H Lymph # (Auto) 100 L [place] # (Auto) 300 Eos # (Auto) 0 Baso # (Auto) 0 PT 14.5 H INR 1.3 APTT 39 H Sodium 135 L Potassium 4.2 Chloride 98 Carbon Dioxide 27 BUN 21 H Creatinine 0.92 Estimated GFR > 60 BUN/Creatinine Ratio 22.8 H Glucose 135 H Lactate 1.3 Calcium 9.2 Total Bilirubin 0.4 AST 39 ALT 28 Alkaline Phosphatase 84 Total Protein 8.7 H Albumin 4.2 Globulin 4.5 H Albumin/Globulin Ratio 0.9 L Lipase 22 L Procalcitonin 0.766 H Urine RBC Urine WBC Ur Squamous Epith Cells Urine Bacteria Urine Mucus Ur Culture Indicated? Vol Urine Centrifuged Chlamy pneumoniae PCR Not detected Adenovirus (PCR) Not detected B. pertussis DNA (PCR) Not detected B.parapertussis DNA PCR Not detected Coronavirus OC43 (PCR) Not detected Coronavirus HKU1 (PCR) Not detected Coronavirus 229E (PCR) Not detected SARS-CoV-2 (PCR) Negative Not detected Coronavirus NL63 (PCR) Not detected Human Metapneumovir PCR Not detected Influenza A (RT-PCR) Flu a negative Influenza Type A (PCR) Not detected Influenza B (RT-PCR) Flu b negative Influenza Type B (PCR) Not detected M. pneumoniae (PCR) Not detected Parainfluenza 1 (PCR) Not detected Parainfluenza 2 (PCR) Not detected Parainfluenza 3 (PCR) Not detected Parainfluenza 4 (PCR) Not detected RSV (PCR) Negative Entero/Rhino (PCR) 11/26/23 11/26/23 11/27/23 17:36 19:15 04:25 WBC 8.0 RBC 3.70 L Hgb 11.0 L Hct 33.0 L MCV 89.2 MCH 29.7 MCHC 33.3 RDW 13.7 Plt Count 219 Neut % (Auto) 85.4 H Lymph % (Auto) 5.9 L [place] % (Auto) 7.8 Eos % (Auto) 0.6 L Baso % (Auto) 0.3 Neut # (Auto) 6800 Lymph # (Auto) 500 L [place] # (Auto) 600 Eos # (Auto) 0 Baso # (Auto) 0 PT INR APTT Sodium 137 Potassium 3.5 Chloride 105 Carbon Dioxide 27 BUN 14 Creatinine 0.68 Estimated GFR > 60 BUN/Creatinine Ratio 20.6 Glucose 84 Lactate Calcium 8.4 Total Bilirubin AST ALT Alkaline Phosphatase Total Protein Albumin Globulin Albumin/Globulin Ratio Lipase Procalcitonin Urine RBC 1-5/hpf Urine WBC 0-1/hpf Ur Squamous Epith Cells 0-1 /hpf Urine Bacteria Occasional (0-1) Urine Mucus 1+ H Ur Culture Indicated? Cult not indicated Vol Urine Centrifuged 10ml (spun) Chlamy pneumoniae PCR Adenovirus (PCR) B. pertussis DNA (PCR) B.parapertussis DNA PCR Coronavirus OC43 (PCR) Coronavirus HKU1 (PCR) Coronavirus 229E (PCR) SARS-CoV-2 (PCR) Coronavirus NL63 (PCR) Human Metapneumovir PCR Influenza A (RT-PCR) Influenza Type A (PCR) Influenza B (RT-PCR) Influenza Type B (PCR) M. 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 Sepsis with acute respiratory failure with hypoxia, acute metabolic encephalopathy secondary to probable aspiration pneumonia in setting of rhinoviral infection as well. - RLL infiltrate, recurrent, he was hospitalized in [place] last year with it, has known chronic aspiration. - recently advanced PO diet while still on supplemental PEG feedings, followed by coroner technician. RETAIL SALES ASSOCIATE SEASONAL recommended NPO and barium swallow, family did not want to continue NPO after discussion with RETAIL SALES ASSOCIATE SEASONAL. At this time, the results of a barium swallow are unlikely to change acute management, can repeat as an outpatient. - continue zosyn for presumed aspiration pnuemonia, recommend continued outpatient speech therapy. 2. Depression - severe, seen few days ago by PCP who added Zyprexa to Mirtazapine and referred him to psychiatry - daughter requesting inpatient psychiatry consultation over concern his decrease PO intake is due to depression. discussed that patient is not an imminent threat to himself or others at this time and outpatient referral to psychiatry is sufficient. - continue follow up with PCP provider, started above medications about 2 weeks ago. 3. Hx of Tongue squamous cell carcinoma - followed by ENT, s/p radiation Tx, recent PET scan and laryngoscopy looks good DVT prophylaxis - Lovenox Code: Full, surrogate is patient's spouse and daughter Additional history obtained from patient's daughter to formulate the above history, assessment and plan. Time-Based Coding :: [TOTAL MINUTES] spent with patient and on the chart (including review of chart, obtaining history, exam, reviewing outside data, placing orders, documenting exam and treatment plan, and counseling patient) on [DATE].
--- NOTE | 2023-11-27 14:32 | ST.IPCSEOM ---
Visit Care Team Role Provider Type Shady Eric MD Primary Care Provider Physician Specialty: Internal Medicine Address: [address] [place] [address], [id number] Email: [email or web address] Tegan Low DO Emergency Provider Physician Referring Provider Specialty: Emergency Medicine Address: [address] [place] [address], [facility] Email: [email or web address] David De Los Santos MD Admit Provider Physician Attending Provider Specialty: Internal Medicine Address: [address] [place] [address], [facility] Email: [email or web address] [email or web address] Major depressive disorder, recurrent severe without psychotic features (11/26/23) Pneumonitis due to inhalation of food and vomit (11/26/23) Acute respiratory failure with hypoxia (11/26/23) Dysphagia, oropharyngeal phase (11/26/23) Personal history of malignant neoplasm of other organs and systems (11/26/23) Past Medical History (Last Reviewed 11/26/23 @ 20:21 by David De Los Santos MD) Aspiration into airway (Medical) Depression, major, recurrent (Medical) Dysphagia (Medical) History of traumatic injury of head (Medical) Squamous cell carcinoma of tongue (Medical) Weight loss (Medical) Speech-Language Pathology Swallow Evaluation DENTAL OFFICE MANAGER Clinical Swallow Evaluation Start: 11/27/23 12:14 Freq: Status: Active Protocol: Document 11/27/23 12:15 SS (Rec: 11/27/23 12:24 SS [id number]) Clinical Swallow Evaluation Session Time Visit Start Time 09:40 Visit Stop Time 10:25 Total Visit Minutes 45 Visit Information Visit Number Initial Evaluation Referral Referring Provider Dr. Griffin Dietrich Reason for Referral Hx of chronic oropharyngeal dysphagia Setting Assessment Location Acute Care Visit Type Note Type Initial evaluation Next Note Type Next Note Type Treatment Note Patient Information Identification Type Name,Wristband History Pt is a 78-year-old male who presented to ED with altered mental status and dizziness. 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 Per chest x- ray on 11/26/23, ?developing opacity seen at the lung bases . Infiltrates are suspected, although differential diagnosis includes atelectasis . Persistent small right-sided pleural effusion.? MBSS completed on 11/14/22 revealed ?oropharyngeal dysphagia characterized by weak oropharyngeal structures, minimal airway protection with altaf aspiration noted with each trial and a weak, non- productive cough.? NPO with ice chip and water protocol was recommended. Per daughter? s report, pt has not received DENTAL OFFICE MANAGER services for at least 6 months (though she is unsure of the timing), and has been consuming soft diet, thin liquids, and crushed medications in water. She expressed consistent overt s/ sx of aspiration re: throat clearing and coughing as well as gagging when food is presented. She reports pt has lost 10 lbs in the last three months, has been declining to eat, and throwing away his food, with an overall decline in mental health noted. She reports no MBSS has been completed in the past and pt has received very minimal DENTAL OFFICE MANAGER services, which appears to be inconsistent with information given chart review. Subjective Observations Pt reclined in bed upon DENTAL OFFICE MANAGER arrival. Assisted with upright positioning. Daughter and at bedside. Daughter provided most of the case history. Reported by Patient/Caregiver Pain/Discomfort No Other Symptoms Choking,Coughing,Difficulty swallowing liquids,Difficulty swallowing pills,Difficulty swallowing solids,History of aspiration or pneumonia,Weight loss Comment Daughter reports no difficulty with swallowing until three months ago. She reports increased coughing and throat clearing with solids and liquids. She also reported oral holding and gagging when foods and liquids are presented. Pt reported tickle in his throat when he is attempting to initiate swallow . Current Diet Soft & Bite-sized (IDDSI 6) Baseline Feeding Method Independent in self-feeding The IDDSI Framework Protocol: IDDSI.1 Objective Assessment Mental Status Alert,Responsive,Cooperative Oral Integrity WFL Dentition Edentulous Lip Function Within normal limits Observation of Lips at Rest Symmetrical Pucker Within normal limits Lip Retraction Within normal limits Alternating Pucker/Lip Retraction Within normal limits Tongue Function Within normal limits Observations of Tongue at Rest Within normal limits Tongue Protrusion Within normal limits Tongue Retraction Within normal limits Tongue Lateralization Within normal limits Jaw Function Within normal limits Observation of Jaw at Rest Within normal limits Jaw Opening Within normal limits Jaw Closing Within normal limits Jaw Lateralization Within normal limits Jaw Protrusion Within normal limits Jaw Retraction Within normal limits Hard/Soft Palate Function Within normal limits Observations of Hard/Soft Palate Within normal limits Food and Liquid Trials Position During Assessment Upright (90 degrees) Liquids Trialed Ice chips,Thin (IDDSI 0) Solid Trials Purred (IDDSI 4),Soft & Bite- sized (IDDSI 6) Administration Type Tea spoon,Self-feeding Oral Impairment Moderately impaired Oral Phase Comments Pt demonstrated good oral acceptance with mild oral holding noted. He demonstrated adequate mastication, good bolus formation, and midly prolonged AP transit. Mild oral residue noted following swallows. Suspect delayed pharyngeal swallow and premature spillage given throat clearing prior to laryngeal movement indiactive of likely initiation of swallow. Pharyngeal Impairment Severely impaired Pharyngeal Phase Comments Pt demonstrated overt s/sx of penetration/aspiration immeidately after swallows re: consistent throat clearing with solids and inconsistent throat clearing and coughing with thin liquids. Clear vocal quality immeidately after swallows. Fatigue/Endurance Mild fatigue Comment Pt's ability to participate in trials severely limited by his fatigue as well as poor appetite, with PO intake very minimal despite encourgement. The IDDSI Framework Protocol: IDDSI.1 Findings Swallowing Function Oropharyngeal phase dysphagia Severity of Swallow Impairment Severely impaired Contributing Factors to Swallow Reduced alertness or attention Impairment ,Impaired oral-pharyngeal transport,Delayed swallow initiation,Impaired airway protection Prognosis Fair Based on Cognitive status,Family support,Age,History of aspiration/aspiration pneumonia,Comorbidities, Duration of symptoms/severity Comment Pt presents with inidications of oropharyngeal dysphagia and has a history of chronic severe oropharyngeal dysphagia . Aspiration risk is judged to be high given prior instrumental showing altaf aspiration of all consistnecies, overt s/sx of aspiration, poor oral health, and compromised immune system/ health status. Impact on Safety and Functioning Risk for aspiration,Risk for inadequate nutrition/hydration Recommendations Instrumental Assessment Yes Swallowing Treatment Yes Frequency 5x/week Recommended Solids NPO Other Recommendations Recommend NPO as pt does not appear safe for a PO diet at this time with exception of an ice chip protocol to promote oral hygiene and reduce risk of swallow strength decompensation. Pt currently at a high risk of pulmonary compromise associated with aspiration. Modified barium swallow study (MBSS) is indicated to thoroughly further assess patient?s swallow pathophysiology in order to determine the safest diet, effective compensatory strategies, and potential rehabilitation exercises for therapy. Pt?s family immediately ruled out NPO and expressed multiple times throughout the evaluation that they wish for pt to receive a PO diet. The DENTAL OFFICE MANAGER responded that medically, NPO appeared to be the best option related to eliminating aspiration. Provided education re: risks and benefits of PO diet and NPO and explained that pt remains a known high aspiration risk that can lead to respiratory infection and potential . No change made to diet order at this time as DENTAL OFFICE MANAGER recommends NPO status until MBSS can be completed, but family is wishing to continue current PO diet. Notified MD of evaluation results and family preferences and he verbalized he will discuss POC with pt and family. Medication Recommendations Not Recommended by Mouth Discharge Recommendations [facility]DC facility, Inpatient rehab facility,Home with Home Health Referrals Recommended Referrals Dietary Education Patient/Caregiver Education Family/caregivers expressed understanding of evaluation, Family/caregivers expressed agreement with goals & treatment plans Goals Short-term Goals 1. Patient will complete MBSS to further assess swallowing pathophysiology and next steps in POC. 2. Patient will use compensatory meal strategies with 90% accuracy given MOD v/ v cues to increase safety with PO intake. Long-term Goals Patient will consume safest and least restrcutve diet with no overt s/sx of aspiration/ penetration in order to meet nutrition and hydration needs and reduce risk of aspiration pneumonia.
[2023-11-27] MEDS: OLANZapine 2.5 MG TABLET 5 MG PO (21:56)
[2023-11-27] MEDS: MIRTAZAPINE 15 MG TABLET PO (21:56)
[2023-11-28 02:00] VITALS: BP 152/74; PULSE 84; RESP 24; TEMP 36.6; O2SAT 95
[2023-11-28] MEDS: PIPERACILLIN/TAZO 3.375 GM in SODIUM CHLORIDE 0.9% 100 ML IV (04:53)
[2023-11-28 06:01] LABS: Add Manual Diff / Slide Review NO; Basophils Absolute Auto 0 /uL (0-100); Basophils Percent Auto 0.5 % (0-2); Eosinophils Absolute Auto 200 /uL (0-450); Eosinophils Percent Auto 2.4 % (2-4); Hemoglobin 11.4 g/dL (13.5-17.5); Lymphocytes Absolute Auto 500 /uL (1100-4500); Lymphocytes Percent Auto 6.9 % (25-40); Mean Corpuscular HGB Conc 33.4 % (30-36); Mean Corpuscular Hemoglobin 29.6 PG (26-34); Mean Corpuscular Volume 88.5 fL (80-100); Monocytes Absolute Auto 700 /uL (0-900); Monocytes Percent Auto 9.5 % (3-14); Neutrophils Absolute Auto 5800 /uL (1500-7000); Neutrophils Percent Auto 80.7 % (50-75); Platelet Count 237 X10^3/uL (150-400); Red Blood Cell Count 3.84 X10^6/uL (4.5-5.9); Red Cell Distribution Width 13.6 % (11.6-14.8); White Blood Cell Count 7.2 X10^3/uL (4.5-11.0)
[2023-11-28 06:11] LABS: BUN Creatinine Ratio 18.5 (6-22); Blood Urea Nitrogen 12 mg/dL (9-20); Calcium 8.9 mg/dL (8.4-10.2); Carbon Dioxide 28 mmol/L (22-32); Chloride 103 mmol/L (98-107); Estimated Glomerular Filt Rate > 60 mL/min (>60); Glucose 88 mg/dL (80-110); HEMOLYSIS < 15 (0-50); Potassium 3.6 mmol/L (3.4-5.1); Sodium 137 mmol/L (137-145)
--- NOTE | 2023-11-28 07:47 | PC.NURSE ---
night shift manager: Patient is AxOx4. VSS, SpO2 97% on RA. SOB on exertion. Educated patient on use of deep breathing & IS. Took PO meds crushed mixed with some water, took small sips, tolerated well with x1 cough. Denies pain. IV abx infused as ordered. Oriented to call-light, plan of care ongoing. Patient's daughter (Patricia) expressed concerns about patient not eating and not being truthful when asked questions. Patient's daughter also asked about psych referral for patient d/t concerns about patient intentionally not eating. Discussed concerns with MD Dietrich.
[2023-11-28 08:00] VITALS: BP 149/74; PULSE 84; RESP 18; TEMP 36.2; O2SAT 99
[2023-11-28] MEDS: ENOXAPARIN 40 MG/0.4 ML SYRINGE SUBCUT (08:25)
[2023-11-28] MEDS: guaiFENesin ER 600 MG TAB PO (08:26)
--- NOTE | 2023-11-28 09:59 | PC.NURSE ---
Patient has been ambulating in the halls. He voided 150cc of darkish red urine and his pvr was 0. He just got out of the shower and is resting now.
--- NOTE | 2023-11-28 11:27 | ST.IPDYTX ---
Visit Care Team Role Provider Type Shady Eric MD Primary Care Provider Physician Specialty: Internal Medicine Address: [address] [place] [address], [id number] Email: [email or web address] Tegan Low DO Emergency Provider Physician Referring Provider Specialty: Emergency Medicine Address: [address] [place] [address] Email: [email or web address] David De Los Santos MD Admit Provider Physician Attending Provider Specialty: Internal Medicine Address: [address] [place] [address], [facility] Email: [email or web address] MOUNTER SMOKING PIPE Dysphagia Treatment MOUNTER SMOKING PIPE Dysphagia Treatment Start: 11/27/23 12:14 Freq: Status: Active Protocol: Document 11/28/23 11:06 SS (Rec: 11/28/23 11:27 SS [id number]) Dysphagia Treatment Session Time Visit Start Time 09:56 Visit Stop Time 10:30 Total Visit Minutes 34 Visit Information Visit Number 1 Setting Assessment Location Acute Care Visit Type Note Type Treatment Note Next Note Type Next Note Type Treatment Note Patient Information Identification Type Name,ID Wristband Subjective Observations Pt sitting upright in bed upon MOUNTER SMOKING PIPE arrival. , daughter, and son at bedside. RN reported coughing with intake of liquids and solids. Pt's daughter reported pt has been eating minimal amounts and hyperventilates prior to any PO intake. She continued to ask about psych and dietary referrals. Concerns discussed with MD following session. Treatment Liquids Trialed Ice chips,Thin (IDDSI 0) Solids Trialed Purred (IDDSI 4),Soft & Bite- sized (IDDSI 6) Administration Type Tea Spoon,Cup Single Sip,Self- Feeding Treatment Activities Therapeutic PO trials of ice chips, thin liquids (water) via tsp, puree, and soft and bite-sized textures with dynamic assessment of s/sx of dysphagia. Provided pt and family education re: POC based on progress and overall health status. Communicated with RN and MD re: POC and recommendations. The IDDSI Framework Protocol: IDDSI.1 Assessment Patient Response to Treatment Poor Rehab Potential Fair Assessment of Improvement Upon arrival, pt was alert and oriented. He responded to questions without difficulty and followed 1-2 step directions. Oral phase was characterized by WFL bolus manipulation and appeared organized. Pt demonstrated good oral acceptance and containment, no bolus holding, and extended AP transport with suspected premature spillage. Pharyngeal phase cannot be assessed objectively at bedside though subjectively appeared effortful and pt required 2-3 swallows per bolus across trials. Pt with suspected delay in swallow initiation with all trials. Pt demonstrated consistent s/sx of aspiration with all PO re: throat clearing and coughing. Cough strength is judged to be weak increasing aspirated related complications. Currently, he continues to present with indications of oropharyngeal dysphagia and aspiration risk is judged to be high. Pt does not appear safe for a PO diet at this time. Continue to recommend NPO as pt does not appear safe for a PO diet at this time. Pt and pt?s family again politely declined NPO and stated they want pt to eat and drink. Reviewed risks and benefits of each option and explained that pt remains at a high risk of pulmonary compromise associated with aspiration. Pt and family expressed understanding of this information. Daughter stated she will consider NPO option, though would like to discuss if further with MD and dietitian. Notified MD of discussion with pt and family and he expressed he will discuss goals of care with pt and family. Recommendations Diet Order NPO Medication Recommendations Not Recommended by Mouth Comments ice chips or teaspoon of water following oral care Treatment Plan Placement Recommendation after Discharge Home with Home Health, Outpatient Therapy Appropriate for Continued Therapy Yes Therapy Recommendations Per care management team and MD, pt is set to discharge home today. Recommended pt and family follow up with PCP re: MOUNTER SMOKING PIPE and dietitian referral as well as recommendation for modified barium swallow study (MBSS) to objectively re- assess swallow pathophysiology . Pt and family expressed understanding of recommendations and education. Will follow up if pt does not discharge today.
--- NOTE | 2023-11-28 11:31 | PM.DS.1 ---
History of Present Illness History of Present Illness Date Patient Seen: 11/28/23 Time Patient Seen: 11:31 Chief complaint: Can't Stand, Dizzyness, High BP Narrative: 78 y/o with PMH of chronic dysphagia, s/p radiation Tx of tongue squamous cell carcinoma, on supplemental tube feedings via PEG, and worsening major depression, admitted tachypneic, febrile, tachycardic, with RLL infiltrate, with aspiration pneumonia, sepsis and acute hypoxemic respiratory failure requiring 2 L of oxygen. In addition tested positive for entero/rhino virus on respiratory panel. Discharge Providers Provider Date of admission: 11/26/23 19:35 Discharge Date: 11/28/23 Primary care physician: Shady Eric MD Consults: 11/26/23 20:14 Consult to Speech Therapy Evaluate & Treat Comment: aspiration pneumonia, chronic dysphagia Physician Instructions: Evaluate and treat Discharge provider: Griffin Dietrich DO Summary Hospital Course Discharge Diagnosis: 1. Sepsis with acute respiratory failure with hypoxia, acute metabolic encephalopathy secondary to probable aspiration pneumonia in setting of rhinoviral infection as well. 2. Depression 3. Hx of Tongue squamous cell carcinoma Hospital Course: This is a 78-year-old male with a past medical history of depression, prior dysphagia due to a squamous cell carcinoma of his tongue status post resection who was admitted with confusion and acute respiratory failure with hypoxia due to sepsis from an aspiration pneumonia as well as a rhino viral infection. The patient was treated with ceftriaxone and azithromycin with resolution of his hypoxia and encephalopathy, with returned to baseline. His daughter was very concerned about his depression, though the patient had recently been started on mirtazapine and olanzapine by his primary care provider to help with appetite stimulation and depression. He has pending an outpatient psychiatry referral at this time. The patient denied suicidal or homicidal ideations, and was not deemed appropriate for inpatient psychiatry evaluation at this time. He was seen by speech therapy who recommended the patient be NPO he undergo a barium swallow. Patient and family wanted to continue a diet, so given this it was not felt that the swallow would be of clinical use or changer fixer here in the hospital, but that he could pursue outpatient evaluation with his speech therapist at [facility]. The patient was asymptomatic and laboratory evaluation was unremarkable on the day of discharge. The daughter stated just after discharge she had obtained an appointment for a modified barium swallow on the day of discharge, and a referral was sent for them. Recommend ongoing evaluation with outpatient speech therapy, and PCP for depression management while awaiting psychiatry referral. Time Spent with Patient Time spent: Greater than 30 minutes Exam Vital Signs (past 8 hours): - 11/28/23 08:00 Temperature 97.1 F L Pulse Rate 84 Respiratory Rate 18 Blood Pressure 149/74 H Pulse Oximetry 99 Fraction of Inspired Oxygen 28 SaO2/FiO2 Ratio 335 Oxygen Delivery Method Room Air Oxygen Flow Rate 0 Narrative Exam Narrative: GEN:chronically ill-appearing, cachectic, awake and alert NAD. HEENT: moist mucous membranes, PERRL, no cough. No posterior pharyngeal erythema or exudates. NECK: trachea midline, no JVD Pulm: CTA b/l. No wheezing. CV: RRR no m/r/g. EXT: warm and well perfused with no edema NEURO: awake, no focal deficits Objective Labs 11/28/23 05:25 11/28/23 05:25 Labs: Laboratory Results - last 24 hr 11/28/23 05:25 WBC 7.2 RBC 3.84 L Hgb 11.4 L Hct 34.0 L MCV 88.5 MCH 29.6 MCHC 33.4 RDW 13.6 Plt Count 237 Neut % (Auto) 80.7 H Lymph % (Auto) 6.9 L [place] % (Auto) 9.5 Eos % (Auto) 2.4 Baso % (Auto) 0.5 Neut # (Auto) 5800 Lymph # (Auto) 500 L [place] # (Auto) 700 Eos # (Auto) 200 Baso # (Auto) 0 Sodium 137 Potassium 3.6 Chloride 103 Carbon Dioxide 28 BUN 12 Creatinine 0.65 L Estimated GFR > 60 BUN/Creatinine Ratio 18.5 Glucose 88 Calcium 8.9 PFSH Medical History Depression, major, recurrent Squamous cell carcinoma of tongue History of traumatic injury of head Dysphagia Aspiration into airway Weight loss Social History details: (Maria De Jesus), daughter Chayito, 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 Continue antibiotics for another 5 days. Continue to follow with PCP for ongoing depression management and outpatient psychiatry referral. Discharge orders & Medications Prescriptions: New amoxicillin-pot clavulanate 875-125 mg tablet 1 tab PO BID 5 Days Qty: 10 0RF Continued mirtazapine 15 mg tablet 15 mg PO BEDTIME Qty: 30 0RF Rx Instructions: Take 1/2 tablet (7.5 mg) nightly for 2-3 nights, then increase to 1 tablet (15 mg) nightly. olanzapine 5 mg tablet 5 mg PO BEDTIME Qty: 30 1RF Follow up/Referrals: Shady Eric MD [Primary Care Provider] - 12/06/23 9:30 am (Appt:12/05 @ 9:[address] Eric please arrive 15 min prior to scheduled appointment ) Other Ambulatory Orders: FL barium swallow w speech (Routine) Timeframe: 1 Day Location: Determined by Patient Ordered By: Griffin Dietrich Diet/Activity/Treatments Diet: Diet as Tolerated Diet comment: As tolerated, aspiration precautions Activity: As tolerated, no restrictions. Visit Report/Discharge Packet Instructions: Aspiration Pneumonia, DI for Aspiration Pneumonia, Amoxicillin and Clavulanic Acid Stand Alone Forms: Patient Portal/API, Stroke Signs & Symptoms Discharge Data Primary Care Provider: Shady Eric V
--- NOTE | 2023-11-28 13:09 | CM.DPNOTE ---
DCP Cont Reviewed chart. Patient discussed in multidisciplinary rounds. Patient is likely to discharge home today. Dr Dietrich recommending close outpatient follow up. Patient currently does not have a peg and continues to be an aspiration risk according to team. Patient/family have been provided suggestions on safe diet for patient. Plan: Discharge home w/family, no needs from this CM team identified. ANABEL
== END 2023-11-28 13:35 | disposition home or self-care (01) | DRG 871 ==
LOC: ED 19:10 → AC 19:36
PROVIDERS: Internal Medicine; Student in an Organized Health Care Education/Training Program; Admitting Provider Internal Medicine; Emergency Provider Emergency Medicine; PCP Internal Medicine; Referring Provider Emergency Medicine; Visit Provider Internal Medicine
DX: A41.9 Sepsis, unspecified organism (principal); G93.41 Metabolic encephalopathy; J69.0 Pneumonitis due to inhalation of food and vomit; J96.01 Acute respiratory failure with hypoxia; J18.9 Pneumonia, unspecified organism; F33.2 Major depressive disorder, recurrent severe without psychotic features; B34.8 Other viral infections of unspecified site; R13.12 Dysphagia, oropharyngeal phase; R65.20 Severe sepsis without septic shock; Z93.1 Gastrostomy status; Z87.891 Personal history of nicotine dependence; Z85.810 Personal history of malignant neoplasm of tongue; Z98.890 Other specified postprocedural states
CPT/HCPCS: 0241U; 36415; 70450; 70496; 70498; 71045; 80048; 80053; 81003; 81015; 83605; 83690; 84145; 85025; 85610; 85730; 87040; 87633; 92526; 92610; 93005; 96361; 96365; 99285; J1650; J2543; Q9967

== ENCOUNTER 2024-03-15 08:44 | Day surgery (SDC) | payer MEDICARE, SELFPAY ==
[2023-11-26 23:28] VITALS: BMI 20.3
--- NOTE | 2024-03-15 | PATH_ITS ---
[facility] Accession Number: [id number] No. of containers..01 Tissue . 01 Material submitted: . tongue, base - LEFT BASE OF TONGUE . 01 Diagnosis: LEFT BASE OF TONGUE, BIOPSY: Fragments of squamous mucosa with at least squamous cell carcinoma in situ, please see microscopic description. Focal area worrisome, but not diagnostic for invasion. MRV 03/19/2024 1645 Local . 01 Comment: As part of ongoing quality control assessor, this case is also reviewed by Dr. Vishnu Barber, who agrees with the interpretation. . 01 Electronically signed: . Rocco Sánchez MD, Pathologist NPI- [id number] . 01 Gross description: . Received in formalin, labeled with two patient identifiers and left base of tongue, are multiple tellez and brown tissue fragments of possible mucosa received in fragmented Telfa paper, aggregating to 0.9 x 0.4 x 0.2 cm. Filtered and submitted in cassette A1. ([id number]) /R 03/16/2024 1556 Local . 01 Microscopic: . Microscopic examination reveals superficial fragments of squamous mucosa with at least squamous cell carcinoma in situ. Tangential orientation of those fragments and fragmentation of the tissue limits definite evaluation for an invasive component within the stroma. . Initial and deeper levels have been examined, and ALEX immunostain is performed, supporting the diagnosis. . * This test was developed and the performance characteristics were validated by [employer]. It has not been cleared or approved by the U.S. Food and Drug Administration. . 01 Pathologist provided ICD-10: C01 . 01 CPT . 008077, N54065 Specimen Comment: A courtesy copy of this report has been sent to [phone] Performed at: [address] [facility] [address], [place], [place] [id number] MD Ayden Bergeron MD Phone: [phone]
[2024-03-15] MEDS: LACTATED RINGERS 1,000 ML 42 ML IV (09:30)
[2024-03-15 09:40] VITALS: BP 131/66; PULSE 75; RESP 20; TEMP 36.6; O2SAT 100; BMI 20.4
--- NOTE | 2024-03-15 10:42 | PM.PREOP ---
Pre-operative Note Interval Note History & Physical reviewed/Exam performed by Physician: Yes Changes to H&P: No
--- NOTE | 2024-03-15 10:43 | PM.OP.1 ---
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 Following discussion of the material risks benefits complications and alternatives, the patient elected to proceed. Surgeon: Storm Hu Click Yes if Unassisted: Yes Anesthesia Type: General Operative Notes Findings: Somewhat friable mucosa throughout, dry with some thick secretions. Subtle palpable induration left base of tongue but unable to palpate and visualize the area simultaneously. 3 mm firm polyp in the area of the left base of tongue that was visible and grossly completely resected. Blind biopsies deeper through that mucosal incision were also performed, at least 1 cm deep. No other palpable or visible abnormalities concerning for tumor. Firm, thick epiglottis partially scarred to the tongue base. Specimen(s): other (Left base of tongue, superficial and deep) Estimated Blood Loss (mL): 2 Procedure in detail: Following identification and confirmation of consent, the patient was brought to the operating room suite and placed in the supine position. General endotracheal anesthesia was administered. The table was turned right side out. I performed a manual digital exam of the oral cavity, oropharynx, hypopharynx. The patient was edentulous but a gauze was used as a pad to protect the alveolar ridge. The lubricated laryngoscope was placed through the right side of the mouth with the above findings noted. Multiple cup forceps biopsies superficial and deep of the left tongue base were performed, with Afrin and lidocaine on a cotton pledget for hemostasis. Tolerated the procedure well without complication. Extubated in the operating room and taken to recovery room in stable condition Complications: none Post-operative Condition: stable Disposition: same day surgery Plan for aftercare: Tylenol or Advil for pain control if necessary, may gargle ice water with any bleeding otherwise he is NPO, exclusively G-tube dependent. I will contact with pathology once available.
--- NOTE | 2024-03-15 11:58 | SUR.OPER ---
Supine on padded OR bed, head on pillow, arms padded and tucked at sides, legs uncrossed, safety belt at thigh, tape over blanket over lower legs .
[2024-03-15] MEDS: OXYMETAZOLINE NASAL SPRAY 30 ML 2 SPRAYS NASAL (12:23)
[2024-03-15 12:35] VITALS: BP 129/58; PULSE 86; RESP 22; TEMP 36.4; O2SAT 96
[2024-03-15 12:39] VITALS: BP 138/71; PULSE 77; RESP 28; O2SAT 97
[2024-03-15 12:44] VITALS: BP 127/60; PULSE 75; RESP 23; O2SAT 100
[2024-03-15 12:49] VITALS: BP 130/70; PULSE 67; RESP 32; O2SAT 100
[2024-03-15 12:54] VITALS: BP 135/71; PULSE 69; RESP 14; TEMP 36.8; O2SAT 100
== END 2024-03-15 13:16 | disposition home or self-care (01) ==
PROVIDERS: PCP Internal Medicine; Referring Provider Otolaryngology; Visit Provider Otolaryngology
PROC: 0CJS8ZZ Inspection of Larynx, Via Natural or Artificial Opening Endoscopic (ICD-10-PCS; CPT 31535; principal; 2024-03-15 10:45)
DX: C01 Malignant neoplasm of base of tongue (principal)
CPT/HCPCS: 31535; J0330; J1171; J2704